=== PATIENT | male | born 1935 | race Caucasian/White ===

== ENCOUNTER → 2016-09-14 | Outpatient (CLI) | payer OTHER ==
[~2016-09-14] MED LIST: ACET-1256 PO; ADVIN25050 INH; ALL300 PO; CARV12.52 PO; CLB200 PO; CLC6 PO; DIGO0.122 PO; FURO40TA3 PO; ISOS60TA25 PO; METO50TA7 PO; PRED10TA PO; TIOTCAP INH; WARF5TAB90 PO
--- NOTE | 2016-09-14 12:23 | DIAGNOSTIC IMAGING REPORT ---
TWO VIEW CHEST CLINICAL HISTORY: Cough and dyspnea. FINDINGS: PA and lateral chest radiographs are compared to study dated 12/18/2013 and correlated with chest CT dated 04/13/2010. The heart is enlarged and there is atherosclerotic calcification of the thoracic aorta. The pulmonary vasculature is noncongested. Emphysema and chronic interstitial thickening are similar to previous. There is a right pleural effusion with associated right basilar consolidation. Atelectasis is noted at the left lung base. A calcified granuloma is again seen in the left upper lobe. There is no pneumothorax. The skeletal structures are osteopenic. Degenerative change is noted throughout the thoracic spine. IMPRESSION: 1. Cardiomegaly and emphysema. There is no radiographic evidence of congestive failure. 2. There is a small right pleural effusion with right basilar consolidation. Correlate clinically for evidence of pneumonia. Radiographic follow-up to resolution is recommended Electronically signed by: Aiden Doty M.D. 09/14/2016 12:21 PM Dictated Date/Time: 09/14/2016 12:20 PM
[2016-09-14 13:07] LABS: BASO % 0.2 %; BASO ABS # 0.01 K/uL (0-0.2); COMPLETE YES; HEMATOCRIT 35.7 % (42-52); IG% 0.5 %; LYMPH % 12.5 %; LYMPH ABS # 0.82 K/uL (1.2-3.4); MEAN CELL VOLUME 97.8 fL (80-100); MEAN CORPUSCULAR HEMOGLOBIN 31.5 pg (25-34); MEAN CORPUSCULAR HGB CONC 32.2 g/dl (32-36); MEAN PLATELET VOLUME 9.9 fL (7.4-10.4); MONO % 6.7 %; NEUT % 78.1 %; PLATELET COUNT 170 K/uL (130-400); RED BLOOD COUNT 3.65 M/uL (4.7-6.1); WHITE BLOOD COUNT 6.56 K/uL (4.8-10.8)
[2016-09-14 14:46] LABS: INFLUENZA A PCR Neg for Influ A (NEG); INFLUENZA B PCR Neg for Influ B (NEG)
== END | disposition home or self-care (01) ==
LOC: C.RAD 11:37
PROVIDERS: ATTEND Internal Medicine
DX: R05 Cough (principal); J43.9 Emphysema, unspecified; I51.7 Cardiomegaly; J90 Pleural effusion, not elsewhere classified

== ENCOUNTER → 2016-09-16 | Outpatient (CLI) | payer OTHER ==
[2016-09-16 17:50] LABS: BLOOD UREA NITROGEN 20 mg/dl (7-18); BUN/CREATININE RATIO 18.3 (10-20); CALCIUM 8.8 mg/dl (8.5-10.1); CARBON DIOXIDE 27 mmol/L (21-32); CHLORIDE 103 mmol/L (98-107); GLUCOSE 103 mg/dl (70-99); POTASSIUM 4.1 mmol/L (3.5-5.1); SODIUM 140 mmol/L (136-145)
[2016-09-16 17:55] LABS: BASO % 0.3 %; BASO ABS # 0.02 K/uL (0-0.2); COMPLETE YES; EOS % 1.7 %; HEMATOCRIT 37.9 % (42-52); IG% 0.3 %; LYMPH % 14.5 %; LYMPH ABS # 1.03 K/uL (1.2-3.4); MEAN CELL VOLUME 98.2 fL (80-100); MEAN CORPUSCULAR HEMOGLOBIN 31.6 pg (25-34); MEAN CORPUSCULAR HGB CONC 32.2 g/dl (32-36); MONO % 4.5 %; NEUT % 78.7 %; PLATELET COUNT 194 K/uL (130-400); RED BLOOD COUNT 3.86 M/uL (4.7-6.1); WHITE BLOOD COUNT 7.08 K/uL (4.8-10.8)
[2016-09-17 06:27] LABS: ESTIMATED AVERAGE GLUCOSE 131 mg/dl; HA1C FLAG Normal (Normal)
== END | disposition home or self-care (01) ==
LOC: C.LABBFT 14:48
PROVIDERS: ATTEND Internal Medicine
DX: R73.09 Other abnormal glucose (principal); N18.9 Chronic kidney disease, unspecified

== ENCOUNTER → 2016-10-04 | Outpatient (CLI) | payer OTHER ==
--- NOTE | 2016-10-04 09:40 | DIAGNOSTIC IMAGING REPORT ---
CHEST 2 VIEWS ROUTINE CLINICAL HISTORY: J18.9 [id number] dyspnea COMPARISON STUDY: 09/14/2016 FINDINGS: Unchanging increase in density and a consolidative change right base. Trace pleural fluid left base. Mild stable cardiomegaly. Lungs otherwise appear clear. Several small calcified granulomas. IMPRESSION: Unchanging consolidative change and/or effusion right base. Slight blunting left lateral costophrenic angle. Mild stable cardiomegaly. Electronically signed by: Moe Winkler M.D. 10/04/2016 9:38 AM Dictated Date/Time: 10/04/2016 9:37 AM
== END | disposition home or self-care (01) ==
LOC: C.RAD1850 09:18
PROVIDERS: ATTEND Internal Medicine
DX: J18.9 Pneumonia, unspecified organism (principal); I51.7 Cardiomegaly

== ENCOUNTER 2016-10-16 10:27 | Inpatient (IN) | payer OTHER ==
[~2016-10-16] VITALS: Ht 177.8 cm; Wt 112.4 kg
[2016-10-16] VITALS (8 sets, daily range): BP systolic 125–150; BP diastolic 69–103; PULSE 83–103; TEMP 36.7–36.9; O2SAT 90–95; Ht 177.8 cm; Wt 112.4 kg
[~2016-10-16 10:27] MED LIST changes: -ACET-1256 PO
[2016-10-16] MEDS ORDERED: ASPIRIN 81 MG CHEW PO STA (11:27)
[2016-10-16] MEDS ORDERED: METHYLPREDNISOLONE 125 MG VIAL IV STA (11:34)
[2016-10-16] MEDS ORDERED: ALBUT/IPRATROP 3MG/0.5MG NEB 3 ML VIAL INH STA (11:34)
--- NOTE | 2016-10-16 11:36 | EMERGENCY ROOM VISIT NOTE ---
History Report prepared by Cristiane: Imtiaz Hopkins Under the Supervision of: Dr. Radha Zhang M.D. First contact with patient: 10:59 Chief Complaint: SHORTNESS OF BREATH Stated Complaint: SOB, FAILED OUTPT TEST FOR PNEUMONIA Nursing Triage Summary: reports pneumonia on 09/17 round of levaquin , had # 2 round of levaquin completed this and cont to not feel well, increased sob X 2 days , denies mucus production, denies cp History of Present Illness The patient is an 81 year old male who presents to the Emergency Room with complaints of persistent shortness of breath for the past month. The shortness of breath is worse with exertion and improves when he is at rest. The patient props himself up at night with one pillow. He does not have any exertional chest pain. The patient was diagnosed with right lower lobe pneumonia by chest X -ray one month ago with Dr. Smith (PCP). The patient was started on Levaquin. He had a repeat X-ray that showed persistent pneumonia in the lower lobe. The patient had a second round of Levaquin last week. The patient has not been on steroids or albuterol for his shortness of breath. The patient denies fevers, chills, cough, chest pain, or abdominal pain. He follows up with Dr. Diane ( Cardiology) for a history of CHF and atrial fibrillation. He is on Coumadin. His last INR was high and his dose was adjusted accordingly. He is on Lasix and has not noticed significant weight gain. The patient also has a history of COPD. He is a former smoker. He denies any history of blood clots or diabetes. He denies any blood in his stools. Source of History: patient Onset: one month ago Position: other (respiratory) Quality: other (short of breath) Timing: other (persistent) Modifying Factors (Worsening): exertion Modifying Factors (Relieving): rest Associated Symptoms: No abdominal pain, No chest pain, No chills, No cough, No fevers Review of Systems See HPI for pertinent positives & negatives. A total of 10 systems reviewed and were otherwise negative. Past Medical & Surgical Medical Problems: (1) A-fib (2) Carcinomatosis (3) CHF (congestive heart failure) (4) COPD (chronic obstructive pulmonary disease) (5) Pneumonia Family History Patient reports no known family medical history. Social History Smoking Status: Never Smoker Marital Status: Housing Status: lives with family Occupation Status: retired Current/Historical Medications Scheduled Allopurinol (Zyloprim *), 300 MG PO DAILY Carvedilol (Coreg), 12.5 MG PO BID Celecoxib (Celebrex *), 200 MG PO Q2D Colchicine (Colchicine *), 0.6 MG PO QAM Digoxin (Lanoxin), 0.125 MG PO DAILY Fluticasone Prop/Salmeterol (Advair Diskus 250/50 Mcg *), 1 PUFF INH BID Furosemide (Lasix), 40 MG PO UD Isosorbide Mononitrate Ext Rel (Imdur Ext Rel), 60 MG PO QAM Metoprolol Succ (Toprol Xl) (Toprol-Xl), 50 MG PO DAILY Tiotropium [place] (Spiriva Handihaler), 1 CAP INH DAILY Warfarin Sodium (Coumadin), 5 MG PO DAILY@16 Scheduled PRN Acetaminophen (Tylenol), 2 TAB PO Q6 PRN for Pain Allergies Coded Allergies: No Known Allergies (Verified , 10/16/16) Physical Exam Vital Signs Date Time Temp Pulse Resp B/P Pulse Ox O2 Delivery O2 Flow Rate FiO2 10/16/16 14:01 138/98 10/16/16 13:57 82 20 88 10/16/16 13:38 143/91 10/16/16 13:01 130/84 10/16/16 12:57 78 18 93 10/16/16 12:31 128/82 10/16/16 12:27 76 24 95 10/16/16 12:26 76 20 132/77 95 Nasal Cannula 2.0 10/16/16 12:21 132/77 10/16/16 12:00 72 16 139/94 92 10/16/16 11:57 75 32 92 10/16/16 11:33 78 10/16/16 11:27 77 21 93 10/16/16 10:58 95 Room Air 10/16/16 10:57 68 33 90 10/16/16 10:56 78 10/16/16 10:45 95 Room Air 10/16/16 10:42 139/94 10/16/16 10:32 36.6 75 20 124/74 98 Room Air Physical Exam Vital signs reviewed. General: Elderly, obese, chronically ill-appearing male, in no significant distress. On [place] oxygen. HEENT: No scleral icterus, PERRLA, neck supple. Atraumatic. Cardiovascular:Irregular rhythm, rate controlled, no extra sounds. Pulmonary: Diminished breath sounds at the right base, normal work of breathing. Abdomen: Soft, nontender, nondistended, positive bowel sounds. Musculoskeletal: Atraumatic, no peripheral edema. Neurologic: Patient awake alert and oriented x 3, full strength in all 4 extremities. Cranial nerves 2 through 12 grossly intact. Skin: Warm, dry, no rash Medical Decision & Procedures ER Provider Diagnostic Interpretation: X-ray results as stated below per my interpretation and radiologist interpretation. Other radiology results as stated below per my review and radiologist interpretation: CHEST ONE VIEW PORTABLE CLINICAL HISTORY: SOB dyspnea COMPARISON STUDY: 10/04/2016 FINDINGS: moderate cardiomegaly. Improved aeration left base compared to the prior study. Small developing parenchymal infiltrate right base. Small right effusion. Stable findings of pulmonary vascular congestion IMPRESSION: 1. Small developing parenchymal infiltrate medial aspect right base. 2. Moderate cardia megaly. 3. Pulmonary vascular congestion stable from the prior study. Electronically signed by: Moe Winkler M.D. 10/16/2016 11:55 AM Dictated Date/Time: 10/16/2016 11:[address] WITHOUT CONTRAST CT DOSE: 833.07 mGy.cm HISTORY: Dyspnea Right basilar consolidation persistent x1 mo and FERRARI TECHNIQUE: Multiaxial CT images of the chest were performed without contrast. COMPARISON: None. FINDINGS: Study confirms the presence of a right pleural effusion. There are findings of right lower lobe atelectatic change. Possibility of a right infrahilar mass measuring 5 x 4 cm with postobstructive change is considered. Diaphragmatic region shows a distinct nodular appearance. There is nodularity of the pleural surface laterally. Left lung base shows a subtle micronodularity. The osseous structures appear generally intact. Mild degenerative change is present. Limited evaluation the upper abdomen confirms presence of what appears to be carcinomatosis. Hepatic cirrhosis is also noted, with a trace amount of ascites.. IMPRESSION: 1. Diffuse nodularity of the right lung base, right diaphragm, and upper quadrant of the abdomen 2. Probable right infrahilar mass with postobstructive right lower lobe consolidative change. 3. Large right effusion. 4. Probable carcinomatosis of the upper abdomen best seen in the right upper quadrant and perihepatic region although to a lesser extent seen anteriorly and centrally within the upper abdomen. 5. Hepatic cirrhosis. 6. A neoplastic process is the diagnosis of exclusion Electronically signed by: Moe Winkler M.D. 10/16/2016 1:45 PM Dictated Date/Time: 10/16/2016 1:38 PM Laboratory Results 10/16/16 11:30 Red Blood Count 3.83, Mean Corpuscular Volume 95.3, Mean Corpuscular Hemoglobin 31.1, Mean Corpuscular Hemoglobin Concent 32.6, Mean Platelet Volume 9.3, Neutrophils (%) (Auto) 79.2, Lymphocytes (%) (Auto) 14.9, Monocytes (%) (Auto) 3.8, Eosinophils (%) (Auto) 1.4, Basophils (%) (Auto) 0.2, Neutrophils # (Auto) 4.96, Lymphocytes # (Auto) 0.93, Monocytes # (Auto) 0.24, Eosinophils # (Auto) 0.09, Basophils # (Auto) 0.01 10/16/16 11:30 Test 10/16/16 11:30 10/16/16 11:44 White Blood Count 6.26 K/uL (4.8-10.8) Red Blood Count 3.83 M/uL (4.7-6.1) Hemoglobin 11.9 g/dL (14.0-18.0) Hematocrit 36.5 % (42-52) Mean Corpuscular Volume 95.3 fL (80-100) Mean Corpuscular Hemoglobin 31.1 pg (25-34) Mean Corpuscular Hemoglobin Concent 32.6 g/dl (32-36) Platelet Count 162 K/uL (130-400) Mean Platelet Volume 9.3 fL (7.4-10.4) Neutrophils (%) (Auto) 79.2 % Lymphocytes (%) (Auto) 14.9 % Monocytes (%) (Auto) 3.8 % Eosinophils (%) (Auto) 1.4 % Basophils (%) (Auto) 0.2 % Neutrophils # (Auto) 4.96 K/uL (1.4-6.5) Lymphocytes # (Auto) 0.93 K/uL (1.2-3.4) Monocytes # (Auto) 0.24 K/uL (0.11-0.59) Eosinophils # (Auto) 0.09 K/uL (0-0.5) Basophils # (Auto) 0.01 K/uL (0-0.2) RDW Standard Deviation 51.4 fL (36.4-46.3) RDW Coefficient of Variation 14.8 % (11.5-14.5) Immature Granulocyte % (Auto) 0.5 % Immature Granulocyte # (Auto) 0.03 K/uL (0.00-0.02) Prothrombin Time 43.0 SECONDS (9.0-12.0) Prothromb Time International Ratio 3.8 (0.9-1.1) Activated Partial Thromboplast Time 47.4 SECONDS (21.0-31.0) Partial Thromboplastin Ratio 1.8 Anion Gap 9.0 mmol/L (3-11) BUN/Creatinine Ratio 20.9 (10-20) Calcium Level 9.1 mg/dl (8.5-10.1) Magnesium Level 2.2 mg/dl (1.8-2.4) Total Bilirubin 0.4 mg/dl (0.2-1) Direct Bilirubin 0.1 mg/dl (0-0.2) Aspartate Amino Transf (AST/SGOT) 22 U/L (15-37) Alanine Aminotransferase (ALT/SGPT) 12 U/L (12-78) Alkaline Phosphatase 114 U/L (45-117) Total Creatine Kinase 74 U/L (39-308) Creatine Kinase MB 1.4 ng/ml (0.5-3.6) Creatine Kinase MB Ratio 1.9 (0-3.0) Total Protein 6.7 gm/dl (6.4-8.2) Albumin 3.0 gm/dl (3.4-5.0) Bedside Troponin I 0.000 ng/ml (0-0.045) Laboratory results per my review. Medications Administered Medications (Trade) Dose Ordered Sig/Luciana Route Start Time Stop Time Status Last Admin Dose Admin Aspirin (Aspirin Chew) 324 mg NOW STAT PO 10/16/16 11:27 10/16/16 11:29 DC 10/16/16 11:58 324 MG Albuterol/ Ipratropium (Duoneb) 3 ml NOW STAT INH 10/16/16 11:34 10/16/16 11:36 DC 10/16/16 11:59 3 ML Methylprednisolone Sodium Succinate (Solu-Medrol IV) 125 mg NOW STAT IV 10/16/16 11:34 10/16/16 11:36 DC 10/16/16 11:59 125 MG ECG Indication: SOB/dyspnea Rate (beats per minute): 83 Rhythm: atrial fibrillation Findings: RBBB, other (abberantly conducted complexes, repolarization abnormality) ED Course 1110: Patient was evaluated by the [facility]. 1127: Aspirin 324 mg PO. 1132: Past medical records reviewed. The patient was evaluated in room C4. A complete history and physical examination was performed. 1134: Solu-Medrol 125 mg IV, DuoNeb 3 ml INH. 1410: Discussed the case with Dr. [facility]. The patient will be evaluated. Medical Decision Differential diagnosis: Etiologies such as infections, reactive airway disease, pneumonia, pneumothorax , COPD, CHF, cardiac ischemia, pulmonary embolism, musculoskeletal, gastrointestinal, as well as others were entertained. This patient was evaluated and appeared to be in no significant distress. Physical examination reveals a chronically ill-appearing male. Chest x-ray was performed and reveals findings as above. Patient was given aspirin orally. EKG reveals no evidence of acute ischemia. Laboratory work is significant for an INR of 3.8. CT scan of the chest was performed and is significant for a pleural effusion and malignancy. This would be a new diagnosis. I did discuss the situation with the patient, his family was not in the room at that time. He will be evaluated by the hospitalist service, Dr. Serra for further management. Patient is aware of the plan and agrees. Consults Time Called: 1400 Consulting Physician: Dr. Thomas [facility]. Returned Call: [phone]: Discussed the case with Dr. Thomas [facility]. The patient will be evaluated. Impression Primary Impression: Pleural effusion, right Additional Impression: Malignancy Scribe Attestation The scribe's documentation has been prepared under my direction and personally reviewed by me in its entirety. I confirm that the note above accurately reflects all work, treatment, procedures, and medical decision making performed by me. Departure Information Dispostion Being Evaluated By Hospitalist Referrals Raheem Smith M.D. (PCP) Patient Instructions My [facility] Health Problem Qualifiers
[2016-10-16] MEDS ORDERED: ACET-1256 PO (11:43)
[2016-10-16 11:53] LABS: BASO % 0.2 %; BASO ABS # 0.01 K/uL (0-0.2); COMPLETE YES; EOS % 1.4 %; HEMATOCRIT 36.5 % (42-52); IG% 0.5 %; LYMPH % 14.9 %; LYMPH ABS # 0.93 K/uL (1.2-3.4); MEAN CELL VOLUME 95.3 fL (80-100); MEAN CORPUSCULAR HEMOGLOBIN 31.1 pg (25-34); MEAN CORPUSCULAR HGB CONC 32.6 g/dl (32-36); MEAN PLATELET VOLUME 9.3 fL (7.4-10.4); MONO % 3.8 %; NEUT % 79.2 %; PLATELET COUNT 162 K/uL (130-400); RED BLOOD COUNT 3.83 M/uL (4.7-6.1); WHITE BLOOD COUNT 6.26 K/uL (4.8-10.8)
--- NOTE | 2016-10-16 11:56 | DIAGNOSTIC IMAGING REPORT ---
CHEST ONE VIEW PORTABLE CLINICAL HISTORY: SOB dyspnea COMPARISON STUDY: 10/04/2016 FINDINGS: moderate cardiomegaly. Improved aeration left base compared to the prior study. Small developing parenchymal infiltrate right base. Small right effusion. Stable findings of pulmonary vascular congestion IMPRESSION: 1. Small developing parenchymal infiltrate medial aspect right base. 2. Moderate cardia megaly. 3. Pulmonary vascular congestion stable from the prior study. Electronically signed by: Moe Winkler M.D. 10/16/2016 11:55 AM Dictated Date/Time: 10/16/2016 11:53 AM
[2016-10-16 12:10] LABS: BUN/CREATININE RATIO 20.9 (10-20); CALCIUM 9.1 mg/dl (8.5-10.1); CREATININE 0.88 mg/dl (0.60-1.40); MAGNESIUM 2.2 mg/dl (1.8-2.4)
[2016-10-16 12:15] LABS: CKMB/CK RATIO 1.9 (0-3.0)
[2016-10-16 12:19] LABS: PARTIAL THROMBOPLASTIN RATIO 1.8
[2016-10-16 12:24] LABS: INR 3.8 (0.9-1.1)
--- NOTE | 2016-10-16 13:46 | DIAGNOSTIC IMAGING REPORT ---
CHEST CT WITHOUT CONTRAST CT DOSE: 833.07 mGy.cm HISTORY: Dyspnea Right basilar consolidation persistent x1 mo and FERRARI TECHNIQUE: Multiaxial CT images of the chest were performed without contrast. COMPARISON: None. FINDINGS: Study confirms the presence of a right pleural effusion. There are findings of right lower lobe atelectatic change. Possibility of a right infrahilar mass measuring 5 x 4 cm with postobstructive change is considered. Diaphragmatic region shows a distinct nodular appearance. There is nodularity of the pleural surface laterally. Left lung base shows a subtle micronodularity. The osseous structures appear generally intact. Mild degenerative change is present. Limited evaluation the upper abdomen confirms presence of what appears to be carcinomatosis. Hepatic cirrhosis is also noted, with a trace amount of ascites.. IMPRESSION: 1. Diffuse nodularity of the right lung base, right diaphragm, and upper quadrant of the abdomen 2. Probable right infrahilar mass with postobstructive right lower lobe consolidative change. 3. Large right effusion. 4. Probable carcinomatosis of the upper abdomen best seen in the right upper quadrant and perihepatic region although to a lesser extent seen anteriorly and centrally within the upper abdomen. 5. Hepatic cirrhosis. 6. A neoplastic process is the diagnosis of exclusion Electronically signed by: Moe Winkelr M.D. 10/16/2016 1:45 PM Dictated Date/Time: 10/16/2016 1:38 PM
[2016-10-16] MEDS ORDERED: VANCOMYCIN INJ 1,000 MG in SODIUM CHLORIDE 0.9% 250ML 250 ML IV STA (14:24)
[2016-10-16] MEDS ORDERED: ACETAMINOPHEN 325 MG TAB PO PRN (14:30)
[2016-10-16] MEDS ORDERED: ONDANSETRON INJ 2 MG/ML 2 ML VIAL IV PRN (14:30)
[2016-10-16] MEDS ORDERED: ZOLPIDEM TARTRATE 5 MG TAB PO PRN (14:30)
[2016-10-16] MEDS ORDERED: LEVALBUTEROL/IPRATROPIUM NEB INH SCH (15:00)
--- NOTE | 2016-10-16 15:10 | History and Physical ---
History & Physical Date & Time of Service: Oct 16, 2016 at 14:57 Chief Complaint: Sob, Failed Outpt Test For Pneumonia Primary Care Physician: Raheem Smith M.D. History of Present Illness Source: patient The patient is an 81-year-old male who presents to the emergency department with persistent shortness of breath and dyspnea on exertion over the past month. The patient reports he props himself up with one pillow at nighttime. He was diagnosed with a right lower lobe pneumonia by chest x-ray 1 month ago and started on Levaquin, with repeat chest x-ray last week showing persistent pneumonia and placed a second round of Levaquin. He follows with Dr. Diane from cardiology for atrial fibrillation and CHF and is chronically on warfarin. He continues to take his Lasix as directed and his weight has been stable. He has not had any recent travel or sick exposures that he is aware of. He is a former smoker. Past Medical/Surgical History Medical Problems: (1) A-fib Status: Chronic (2) CHF (congestive heart failure) Status: Chronic (3) COPD (chronic obstructive pulmonary disease) Status: Chronic Family History Patient reports no known family medical history. Social History Smoking Status: Never Smoker Smokeless Tobacco Use: No Alcohol Use: none Drug Use: none Marital Status: Housing status: lives with family Occupational Status: retired Immunizations History of Influenza Vaccine: N/A History of Tetanus Vaccine?: Yes Tetanus Immunization Date: Jan 05, 2011 History of Pneumococcal: Yes Pneumococcal Date: Jan 06, 2008 History of Hepatitis B Vaccine: No Multi-Drug Resistant Organisms History of MDRO: No Allergies Coded Allergies: No Known Allergies (Verified , 10/16/16) Home Medications Scheduled Allopurinol (Zyloprim *), 300 MG PO DAILY Carvedilol (Coreg), 12.5 MG PO BID Celecoxib (Celebrex *), 200 MG PO Q2D Colchicine (Colchicine *), 0.6 MG PO QAM Digoxin (Lanoxin), 0.125 MG PO DAILY Fluticasone Prop/Salmeterol (Advair Diskus 250/50 Mcg *), 1 PUFF INH BID Furosemide (Lasix), 40 MG PO UD Isosorbide Mononitrate Ext Rel (Imdur Ext Rel), 60 MG PO QAM Metoprolol Succ (Toprol Xl) (Toprol-Xl), 50 MG PO DAILY Tiotropium Oxly (Spiriva Handihaler), 1 CAP INH DAILY Warfarin Sodium (Coumadin), 5 MG PO DAILY@16 Scheduled PRN Acetaminophen (Tylenol), 2 TAB PO Q6 PRN for Pain Review of Systems The patient denies palpitations, vision change, hearing change, sore throat, fevers, chills, sweats, weight change, fatigue, nausea, vomiting, abdominal pain , pelvic pain, blood in urine or stool, dysuria, urinary frequency or urgency, lightheadedness, dizziness, headache, memory loss, rash, abnormal bruising or bleeding, imbalance, focal weakness, numbness or tingling in arms or legs, arthralgias or myalgias, back or neck pain, night sweats, or allergy symptoms. The review of systems is otherwise negative other than for that already noted above, and at least 10 systems have been reviewed. Physical Exam Vital Signs Date Time Temp Pulse Resp B/P Pulse Ox O2 Delivery O2 Flow Rate FiO2 10/16/16 14:01 138/98 10/16/16 13:57 82 20 88 10/16/16 13:38 143/91 10/16/16 13:01 130/84 10/16/16 12:57 78 18 93 10/16/16 12:31 128/82 10/16/16 12:27 76 24 95 10/16/16 12:26 76 20 132/77 95 Nasal Cannula 2.0 10/16/16 12:21 132/77 10/16/16 12:00 72 16 139/94 92 10/16/16 11:57 75 32 92 10/16/16 11:33 78 10/16/16 11:27 77 21 93 10/16/16 10:58 95 Room Air 10/16/16 10:57 68 33 90 10/16/16 10:56 78 10/16/16 10:45 95 Room Air 10/16/16 10:42 139/94 10/16/16 10:32 36.6 75 20 124/74 98 Room Air The patient is awake, alert and oriented 3, looks fatigued, lying in bed and in no acute distress. HEENT--PERRL, EOMI, mucous membranes and oropharynx dry. Neck--supple, no JVD or bruits, thyroid normal, trachea midline, no adenopathy. Heart--normal S1 and S2, no extra beats, no murmurs, rubs or gallops. Lungs--crackles at right base, no respiratory distress, no accessory muscle use. Abdomen--normal bowel sounds and soft, moderately distended and tympanitic, protuberant infraumbilical hernia Extremities--no cyanosis, clubbing. There is bilaterally 2+ pitting Edema. There are good distal pulses b/l. Dermatologic--chronic venous stasis changes. Neurologic--cranial nerves II through XII grossly intact, motor and sensory examination normal. Rheumatologic--normal range of motion, nontender, muscles and joints for age. Psychiatric--normal affect. Diagnostics Laboratory Results Results Past 24 Hours Test 10/16/16 11:30 10/16/16 11:44 Range/Units White Blood Count 6.26 4.8-10.8 K/uL Red Blood Count 3.83 4.7-6.1 M/uL Hemoglobin 11.9 14.0-18.0 g/dL Hematocrit 36.5 42-52 % Mean Corpuscular Volume 95.3 80-100 fL Mean Corpuscular Hemoglobin 31.1 25-34 pg Mean Corpuscular Hemoglobin Concent 32.6 32-36 g/dl Platelet Count 162 130-400 K/uL Mean Platelet Volume 9.3 7.4-10.4 fL Neutrophils (%) (Auto) 79.2 % Lymphocytes (%) (Auto) 14.9 % Monocytes (%) (Auto) 3.8 % Eosinophils (%) (Auto) 1.4 % Basophils (%) (Auto) 0.2 % Neutrophils # (Auto) 4.96 1.4-6.5 K/uL Lymphocytes # (Auto) 0.93 1.2-3.4 K/uL Monocytes # (Auto) 0.24 0.11-0.59 K/uL Eosinophils # (Auto) 0.09 0-0.5 K/uL Basophils # (Auto) 0.01 0-0.2 K/uL RDW Standard Deviation 51.4 36.4-46.3 fL RDW Coefficient of Variation 14.8 11.5-14.5 % Immature Granulocyte % (Auto) 0.5 % Immature Granulocyte # (Auto) 0.03 0.00-0.02 K/uL Prothrombin Time 43.0 9.0-12.0 SECONDS Prothromb Time International Ratio 3.8 0.9-1.1 Activated Partial Thromboplast Time 47.4 21.0-31.0 SECONDS Partial Thromboplastin Ratio 1.8 Sodium Level 140 136-145 mmol/L Potassium Level 4.0 3.5-5.1 mmol/L Chloride Level 102 98-107 mmol/L Carbon Dioxide Level 29 21-32 mmol/L Anion Gap 9.0 3-11 mmol/L Blood Urea Nitrogen 18 7-18 mg/dl Creatinine 0.88 0.60-1.40 mg/dl Est Creatinine Clear Calc Drug Dose 81.4 ml/min Estimated GFR () 93.4 Estimated GFR (Non- 80.6 BUN/Creatinine Ratio 20.9 10-20 Random Glucose 110 70-99 mg/dl Calcium Level 9.1 8.5-10.1 mg/dl Magnesium Level 2.2 1.8-2.4 mg/dl Total Bilirubin 0.4 0.2-1 mg/dl Direct Bilirubin 0.1 0-0.2 mg/dl Aspartate Amino Transf (AST/SGOT) 22 15-37 U/L Alanine Aminotransferase (ALT/SGPT) 12 12-78 U/L Alkaline Phosphatase 114 45-117 U/L Total Creatine Kinase 74 39-308 U/L Creatine Kinase MB 1.4 0.5-3.6 ng/ml Creatine Kinase MB Ratio 1.9 0-3.0 Total Protein 6.7 6.4-8.2 gm/dl Albumin 3.0 3.4-5.0 gm/dl Bedside Troponin I 0.000 0-0.045 ng/ml Diagnostic Radiology Patient Name: LOLY SELF Unit Number: [id number] Dictated: 10/16/161152 Transcribed: 10/16/16 115 MS Printed Date/Time: [~ rep prt dt]/[~ rep prt tm] [~ rep ct labl] - [~ rep ct ivnm] [facility] [address] Dictated: 10/16/161152 Transcribed: 10/16/16 1153 MS Printed Date/Time: [~ rep prt dt]/[~ rep prt tm] [~ rep ct labl] - [~ rep ct ivnm] CHEST ONE VIEW PORTABLE CLINICAL HISTORY: SOB dyspnea COMPARISON STUDY: 10/04/2016 FINDINGS: moderate cardiomegaly. Improved aeration left base compared to the prior study. Small developing parenchymal infiltrate right base. Small right effusion. Stable findings of pulmonary vascular congestion IMPRESSION: 1. Small developing parenchymal infiltrate medial aspect right base. 2. Moderate cardia megaly. 3. Pulmonary vascular congestion stable from the prior study. Electronically signed by: Moe Winkler M.D. 10/16/2016 11:55 AM Dictated Date/Time: 10/16/2016 11:53 AM The status of this report is Signed. Draft = Not yet reviewed or approved by Radiologist. Signed = Reviewed and approved by Radiologist. <AttendingPhy></AttendingPhy> <FamilyPhy>Raheem Smith M.D.</FamilyPhy > <PrimaryPhy>Raheem Smith M.D.</PrimaryPhy> <UnitNumber>[id number]</ UnitNumber> <VisitNumber>[id number]</VisitNumber> <PatientName>LOLY SELF</ PatientName> <DateOfBirth>1935</DateOfBirth> <Location>[facility]</Location> < ServiceDate>10/16/16</ServiceDate> <MNE>ESINDI</MNE> <OrderingPhy>Radha Zhang M.D.</OrderingPhy> <OrderingPhyMNE>f rep ord dr shahid</OrderingPhyMNE> < DictatingPhyMNE>f rep dict dr shahid</DictatingPhyMNE> <CCListMNE>f rep ct mne</ CCListMNE> <AdmittingPhyMNE>f pt admit dr shahid</AdmittingPhyMNE> <AttendingPhyMNE >f pt attend dr shahid</AttendingPhyMNE> <ConsultingPhyMNE>f pt consult dr shahid</ConsultingPhyMNE> <FamilyPhyMNE>f pt fam dr shahid</FamilyPhyMNE> <OtherPhyMNE>f pt other dr shahid</OtherPhyMNE> < PrimaryPhyMNE>f pt prim care dr shahid</PrimaryPhyMNE> <ReferringPhyMNE>f pt referring dr shahid</ReferringPhyMNE> CC: Radha Zhang M.D. Hester, Christopher E., M.D. Endcc: [~ rep ct add3]] CHEST CT WITHOUT CONTRAST CT DOSE: 833.07 mGy.cm HISTORY: Dyspnea Right basilar consolidation persistent x1 mo and FERRARI TECHNIQUE: Multiaxial CT images of the chest were performed without contrast. COMPARISON: None. FINDINGS: Study confirms the presence of a right pleural effusion. There are findings of right lower lobe atelectatic change. Possibility of a right infrahilar mass measuring 5 x 4 cm with postobstructive change is considered. Diaphragmatic region shows a distinct nodular appearance. There is nodularity of the pleural surface laterally. Left lung base shows a subtle micronodularity. The osseous structures appear generally intact. Mild degenerative change is present. Limited evaluation the upper abdomen confirms presence of what appears to be carcinomatosis. Hepatic cirrhosis is also noted, with a trace amount of ascites.. IMPRESSION: 1. Diffuse nodularity of the right lung base, right diaphragm, and upper quadrant of the abdomen 2. Probable right infrahilar mass with postobstructive right lower lobe consolidative change. 3. Large right effusion. 4. Probable carcinomatosis of the upper abdomen best seen in the right upper quadrant and perihepatic region although to a lesser extent seen anteriorly and centrally within the upper abdomen. 5. Hepatic cirrhosis. 6. A neoplastic process is the diagnosis of exclusion Electronically signed by: Moe Winkler M.D. 10/16/2016 1:45 PM EKG EKG shows atrial fibrillation at 83 bpm, right bundle branch block, PVCs, no acute ST-T changes. Impression Assessment and Plan Atrial fibrillation with controlled rate, right bundle branch block, PVCs, on chronic warfarin with mildly supratherapeutic INR of 3.8. The patient will be admitted to the telemetry unit for serial cardiac enzymes, cardiac rhythm monitoring. Will hold warfarin until other workup completed, and may need heparin IV in the interim. For now, will hold carvedilol 12.5 mg, by mouth digoxin, by mouth Imdur extended release, and by mouth metoprolol succinate. Place patient on Lopressor 5 mg IV every 4 hours with hold parameters. Continue at relative nothing by mouth status until other workup is completed. Postobstructive pneumonia/right infrahilar mass/COPD--hold Advair Diskus 250/50 one inhalation twice a day, and Spiriva [address] patient on vancomycin IV per renal dosing, Zosyn 3.375 mg IV every 8 hours, levofloxacin 500 mg IV every 24 hours, Solu-Medrol 40 mg IV every 8 hours, Xopenex with Atrovent nebulizer to use every 6 hours while awake and every 2 hours when necessary. 7 x 5 cm left lower quadrant mass suggesting a possible colonic neoplasm/ Abdominal carcinomatosis--patient will be kept nothing by mouth. Combined with the lung imaging findings of right hilar mass and right lower lobe metastasis, we'll consult Dr. Dacosta from oncology for further management. 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 Further assessment will be based upon neoplasm workup as above. Next Liver cirrhosis--noted to be underlying metastatic liver disease. Fat-containing ventral and left inguinal hernias--stable per patient. Level of Care Telemetry Advanced Directives Existing Advance Directive: No Existing Living Will: No Existing Power of Steel Rigger: No Resuscitation Status FULL RESUSCITATION VTE Prophylaxis VTE Risk Assessment Done? Y/N: Yes Risk Level: Moderate Given or contraindicated: Warfarin (Coumadin)
[2016-10-16] MEDS ORDERED: PIPERACILL/TAZOBAC CONSULT ACTIVE PRN (15:15)
[2016-10-16] MEDS ORDERED: VANCOMYCIN CONSULT ACTIVE PRN (15:15)
--- NOTE | 2016-10-16 15:15 | DIAGNOSTIC IMAGING REPORT ---
CHEST CT WITH CONTRAST CT DOSE: 1794.86 mGy.cm HISTORY: Abnormal chest CT abnormal ct chest without contrast TECHNIQUE: Multiaxial CT images of the chest were performed following the intravenous administration of contrast. COMPARISON: Earlier study same date without contrast FINDINGS: Study is similar. Right pleural effusion is noted. Right lower lobe atelectatic change is again present. Possibility of a right infrahilar masslike process is again noted. Current dimensions are approximately 4 x 4.5 cm. Nodularity of the right and to a lesser extent left base as well as the potential diaphragmatic nodularity are again noted. Omental carcinomatosis of the right upper quadrant as well as anterior abdomen are again present. Findings of hepatic cirrhosis are noted. Degenerative changes of the thoracic spine are present. Thoracic aorta shows moderate atelectatic change. IMPRESSION: 1. Enhancement improves definition of what appears to be a right infrahilar mass. . 2. Diffuse nodularity right base, diaphragm, and right upper quadrant of the abdomen suggesting metastatic change, and associated carcinomatosis. 3. Unchanging right pleural effusion with left basilar nodularity. 4. Right infrahilar mass with metastatic change to the lower chest regions bilaterally, pleural surfaces, and upper abdomen is considered 5. Hepatic cirrhosis Electronically signed by: Moe Winkler M.D. 10/16/2016 3:14 PM Dictated Date/Time: 10/16/2016 3:08 PM
--- NOTE | 2016-10-16 15:23 | DIAGNOSTIC IMAGING REPORT ---
ABDOMEN AND PELVIS CT WITH IV CONTRAST CT DOSE: HISTORY: Mass. abnormal chest CT TECHNIQUE: Multiaxial CT images of the abdomen and pelvis were performed following the use of intravenous contrast. COMPARISON STUDY: None. FINDINGS: Right basilar pleural effusion with right lower lobe atelectatic change is again noted. Diffuse nodularity of the right base, right diaphragm, and upper right abdominal region are noted. Additional smaller nodular densities of the anterior mid abdominal region are present. Potential conglomerate masslike density left central abdomen measuring 7 x 5 cm and potentially encasing several loops of bowel. Possibly of a colonic neoplasm is considered. There is a ventral hernia containing fat exclusively. There is a mild amount of abdominal and to lesser extent pelvic ascites. The spleen is slightly prominent. Pancreas is atrophied. Layering sludge within the gallbladder lumen may be present. The kidneys show mild atrophy. There are negative for hydronephrosis. There is a partially thrombosed aneurysm of the midabdominal aorta with maximum dimension of 5 cm. True luminal dimension is 3.5 cm. This extends to a level at the level of the aortic bifurcation and originates inferior to the renal arteries. Liver again shows evidence for cirrhotic change. There are several potential hypodensities raise the possibly of hepatic metastatic change. There are left pelvic nodes measuring up to 2.5 cm. There is a small fat-containing left inguinal hernia. There is no significant or bulky inguinal adenopathy. Bladder is midline. The osseous structures demonstrate degenerative change although a true lytic or blastic process is not appreciated. There is a very tiny bone cyst lateral aspect left femoral head measuring 5 mm. IMPRESSION: 1. 7 x 5 cm conglomerate mass left lower quadrant possibly encompassing components of the sigmoid and/or loops of small bowel. 2. Left pelvic adenopathy with moderate mesenteric jean change and omental carcinomatosis. 3. Possible liver metastatic change with underlying cirrhosis. 4. considerable carcinomatosis of the right upper quadrant, diaphragm, and right lung base. 5. Micronodular left lung base. 6. 5 cm partially thrombosed aneurysm infrarenal aspect abdominal aorta. 7. Nonobstructive bowel pattern. 8. Fat-containing ventral as well as left inguinal hernias. 9. A neoplastic process of the abdomen or chest with diffuse metastatic involvement is considered most likely grade 10. Small amount of abdominal and pelvic ascites. Electronically signed by: Moe Winkler M.D. 10/16/2016 3:22 PM Dictated Date/Time: 10/16/2016 3:14 PM
[2016-10-16] MEDS ORDERED: PIPERACILLIN/TAZOBACTAM 4.5 GM/100ML D5W IV STA (15:38)
[2016-10-16] MEDS ORDERED: VANCOMYCIN INJ 2,700 MG in SODIUM CHLORIDE 0.9% 500ML 500 ML IV ONE (15:45)
--- NOTE | 2016-10-16 15:54 | Pharmacy Progress Note ---
Pharmacy Antibiotic Consult Date of Service: Oct 16, 2016. Pharmacy Dosing Scope Pharmacy is consulted to initiate vancomycin IV dosing therapy, order appropriate labs and adjust drug dose/frequency. Subjective The patient is a 81 year old male admitted on . Objective Height (Feet): 5 Height (Inches): 10.00 Weight (Kilograms): 109.090 Lab Results (24hrs): Laboratory Tests Test 10/16/16 11:30 BUN/Creatinine Ratio 20.9 Blood Urea Nitrogen 18 mg/dl Creatinine 0.88 mg/dl White Blood Count 6.26 K/uL Red Blood Count 3.83 M/uL Hemoglobin 11.9 g/dL Hematocrit 36.5 % Mean Corpuscular Volume 95.3 fL Mean Corpuscular Hemoglobin 31.1 pg Mean Corpuscular Hemoglobin Concent 32.6 g/dl Platelet Count 162 K/uL Mean Platelet Volume 9.3 fL Neutrophils (%) (Auto) 79.2 % Lymphocytes (%) (Auto) 14.9 % Monocytes (%) (Auto) 3.8 % Eosinophils (%) (Auto) 1.4 % Basophils (%) (Auto) 0.2 % Neutrophils # (Auto) 4.96 K/uL Lymphocytes # (Auto) 0.93 K/uL Monocytes # (Auto) 0.24 K/uL Eosinophils # (Auto) 0.09 K/uL Basophils # (Auto) 0.01 K/uL Assessment & Plan Assessment * 81 yo M with PNA, failed outpatient levofloxacin x2 courses. Hospitalist concerned for post-obstructive etiology. Patient's temperature, heart rate, and WBC all wnl, but O2 st at 88%, now on nasal canula. * Nasal MRSA swab pending * Goal vancomycin 15-20 mcg/mL * CrCL ~ 80 mL/min * Vancomycin 25 mg/kg IV x1 then 14 mg/kg IV q12h Plan * Vancomycin 2700 mg IV x1 then 1500 mg IV q12h * Trough prior to 4th overall dose Pharmacy will continue to follow and will adjust dose/frequency as necessary. Thank you
[2016-10-16] MEDS ORDERED: IPRATROPIUM BROMIDE NEB SOLN 0.02% 2.5 ML VIAL INH PRN (17:00)
[2016-10-16] MEDS ORDERED: PIPERACILL/TAZOBAC IV 3.375 GM in DEXTROSE 5% 100ML IV ONE (17:00)
[2016-10-16] MEDS ORDERED: LEVALBUTEROL 1.25MG/0.5ML NEB INH PRN (17:00)
[2016-10-16] MEDS: NSS + 20MEQ KCL 1000ML 1,000 ML IV SCH (17:25)
[2016-10-16] MEDS: LEVOFLOXACIN / D5W 500 MG in PREMIXED IN D5W 100 ML IV SCH (17:26)
[2016-10-16] MEDS: NITROGLYCERIN OINT 2% 1GM PACKET EXT SCH ×2 (18:19→23:19)
[2016-10-16] MEDS: METHYLPREDNISOLONE IV 40 MG in SYRINGE 0 ML IV SCH (18:19)
[2016-10-16] MEDS: LEVALBUTEROL 1.25MG/0.5ML NEB INH SCH (19:06)
[2016-10-16] MEDS: IPRATROPIUM BROMIDE NEB SOLN 0.02% 2.5 ML VIAL INH SCH (19:06)
[2016-10-16] MEDS: METOPROLOL TARTRATE 1 MG/ML VIAL IV. SCH ×2 (19:42→23:19)
[2016-10-16] MEDS: PIPERACILL/TAZOBAC IV 3.375 GM in DEXTROSE 5% 100ML IV SCH (21:24)
[2016-10-16] MEDS ORDERED: PIPERACILL/TAZOBAC IV 3.375 GM in DEXTROSE 5% 100ML 100 ML IV SCH (22:00)
[2016-10-17] VITALS (16 sets, daily range): BP systolic 121–155; BP diastolic 69–96; PULSE 87–112; TEMP 36.3–37; O2SAT 90–100
[2016-10-17] MEDS: IPRATROPIUM BROMIDE NEB SOLN 0.02% 2.5 ML VIAL INH SCH ×4 (01:44→20:02)
[2016-10-17] MEDS: LEVALBUTEROL 1.25MG/0.5ML NEB INH SCH ×4 (01:44→20:02)
[2016-10-17] MEDS: METHYLPREDNISOLONE IV 40 MG in SYRINGE 0 ML IV SCH ×3 (03:01→17:07)
[2016-10-17] MEDS: VANCOMYCIN INJ 1,500 MG in SODIUM CHLORIDE 0.9% 500ML 500 ML IV SCH ×2 (03:02→16:29)
[2016-10-17] MEDS: METOPROLOL TARTRATE 1 MG/ML VIAL IV. SCH ×5 (03:02→20:27)
[2016-10-17] MEDS: PIPERACILL/TAZOBAC IV 3.375 GM in DEXTROSE 5% 100ML IV SCH ×3 (05:40→22:17)
[2016-10-17] MEDS: NITROGLYCERIN OINT 2% 1GM PACKET EXT SCH ×3 (05:40→17:09)
[2016-10-17 07:14] LABS: CREATININE 0.82 mg/dl (0.60-1.40)
--- NOTE | 2016-10-17 10:46 | Oncology Consultation ---
Oncology/Heme Consultation Date of Consultation: Oct 17, 2016. Attending Physician: Randa Maldonado DO Reason for Consultation: Multiple masses on CT, concern for metastatic malignancy History of Present Illness Mr. Cortes is an 81 year old man with a history of CHF, COPD, and Afib on coumadin. He presented to the ER yesterday with acutely worsening shortness of breath. He's been treated for the last month or so for a presumed pneumonia. However, the infiltrate did not improve with antibiotics and he has become increasingly short of breath. He denies pain, hemoptysis, fevers, chills, or purulent sputum. 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 He has never had a colonoscopy. He denies any stool changes, hematochezia, or melena. His activity is somewhat limited, in part due to arthritis, but he spends less than half the day in bed and is independent in his ADLs. Past Medical/Surgical History Medical Problems: (1) Malignancy Status: Acute (2) Pleural effusion, right Status: Acute Family History Patient reports no known family medical history. Social History Smoking Status: Never Smoker Smokeless Tobacco Use: No Alcohol Use: none Drug Use: none Marital Status: Occupation Status: retired Allergies Coded Allergies: No Known Allergies (Verified , 10/16/16) Home Medications Scheduled Allopurinol (Zyloprim *), 300 MG PO DAILY Carvedilol (Coreg), 12.5 MG PO BID Celecoxib (Celebrex *), 200 MG PO Q2D Colchicine (Colchicine *), 0.6 MG PO QAM Digoxin (Lanoxin), 0.125 MG PO DAILY Fluticasone Prop/Salmeterol (Advair Diskus 250/50 Mcg *), 1 PUFF INH BID Furosemide (Lasix), 40 MG PO UD Isosorbide Mononitrate Ext Rel (Imdur Ext Rel), 60 MG PO QAM Metoprolol Succ (Toprol Xl) (Toprol-Xl), 50 MG PO DAILY Tiotropium [place] (Spiriva Handihaler), 1 CAP INH DAILY Warfarin Sodium (Coumadin), 5 MG PO DAILY@16 Scheduled PRN Acetaminophen (Tylenol), 2 TAB PO Q6 PRN for Pain Current Inpatient Medications Current Inpatient Medications Medications (Trade) Dose Ordered Sig/Luciana Route Start Time Stop Time Status Last Admin Dose Admin Potassium Chloride/Sodium Chloride (Nss + 20meq KCl 1000ml) 1,000 ml @ 50 mls/hr Q20H IV 10/16/16 17:00 11/15/16 16:59 10/16/16 17:25 50 MLS/HR Acetaminophen (Tylenol Tab) 650 mg Q4H PRN PO 10/16/16 14:30 11/15/16 14:29 Zolpidem Tartrate (Ambien Tab) 5 mg HSZ PRN PO 10/16/16 14:30 11/15/16 14:29 Nitroglycerin (Nitroglycerin 2% Oint) 1 inch Q6H EXT 10/16/16 18:00 11/15/16 17:59 10/17/16 05:40 1 INCH Metoprolol Tartrate (Lopressor Iv) 5 mg Q4 IV. 10/16/16 20:00 11/15/16 19:59 10/17/16 07:31 5 MG Ondansetron HCl 4 mg 4 mg Q6H PRN IV 10/16/16 14:30 11/15/16 14:29 Levofloxacin 500 mg/Prmx 100 ml @ 100 mls/hr Q24H IV 10/16/16 17:00 10/23/16 16:59 10/16/16 17:26 100 MLS/HR Methylprednisolone Sodium Succinate/ Syringe (Solu-Medrol IV/ Syringe) 0.64 ml @ 1.5 mls/min Q8H IV 10/16/16 18:00 11/15/16 17:59 10/17/16 10:12 1.5 MLS/MIN Vancomycin HCl (Consult) 1 ea UD PRN N/A 10/16/16 15:15 11/15/16 15:14 Piperacillin Sod/ Tazobactam Sod 1 ea 1 ea UD PRN N/A 10/16/16 15:15 11/15/16 15:14 Piperacillin Sod/ Tazobactam Sod 3.375 gm/Dextrose 115 ml @ 28.75 mls/ hr Q8H IV 10/16/16 22:00 3/25/17 21:59 10/17/16 05:40 28.75 MLS/HR Vancomycin HCl/ Sodium Chloride (Vancomycin Inj/ Nss 500ml) 530 ml @ 200 mls/hr Q12@0400,1600 IV 10/17/16 04:00 10/24/16 03:59 10/17/16 03:02 200 MLS/HR Ipratropium [place] (Atrovent 0.02% 0.5MG/2.5ML Neb) 0.5 mg Q6R INH 10/16/16 21:00 11/15/16 20:59 10/17/16 01:44 0.5 MG Levalbuterol (Xopenex 1.25MG/ 0.5ML Neb) 1.25 mg Q6R INH 10/16/16 21:00 11/15/16 20:59 10/17/16 01:44 1.25 MG Ipratropium [place] (Atrovent 0.02% 0.5MG/2.5ML Neb) 0.5 mg Q2H PRN INH 10/16/16 17:00 11/15/16 16:59 Levalbuterol (Xopenex 1.25MG/ 0.5ML Neb) 1.25 mg Q2H PRN INH 10/16/16 17:00 11/15/16 16:59 Review of Systems Constitutional: + fatigue, No chills, No fever Eyes: No worsening of vision Respiratory: + dyspnea on exertion, + shortness of breath, No hemoptysis, No sputum Cardiovascular: No chest pain, No palpitations Abdomen: No GI bleeding, No nausea, No pain, No vomiting Musculoskeletal: No joint pain, No muscle pain Genitourinary - Male: No dysuria, No hematuria Neurologic: No numbness/tingling, No weakness Hematologic / Lymphatic: No abnormal bleeding/bruising Integumentary: No rash Physical Exam Date Time Temp Pulse Resp B/P Pulse Ox O2 Delivery O2 Flow Rate FiO2 10/17/16 08:00 90 Nasal Cannula 3.0 10/17/16 07:50 36.7 87 20 133/69 93 Nasal Cannula 2.0 10/17/16 07:31 105 134/80 10/17/16 07:03 100 16 92 Nasal Cannula 3.0 10/17/16 04:00 95 Nasal Cannula 4.0 10/17/16 03:02 96 134/80 10/17/16 02:57 36.3 106 22 134/80 96 Nasal Cannula 3.0 10/17/16 01:44 96 16 100 Nasal Cannula 4.0 10/16/16 23:59 95 Nasal Cannula 4.0 10/16/16 23:19 98 135/69 10/16/16 23:04 36.9 98 22 135/69 91 Nasal Cannula 5.0 10/16/16 20:00 91 Nasal Cannula 4.0 10/16/16 19:42 114 150/103 10/16/16 19:32 36.7 103 18 150/103 91 Nasal Cannula 3.0 10/16/16 19:06 95 16 93 Nasal Cannula 3.0 10/16/16 17:45 125/92 10/16/16 16:00 90 Nasal Cannula 3.0 10/16/16 16:00 36.8 83 20 90 Nasal Cannula 3.0 10/16/16 15:45 85 20 149/102 91 Nasal Cannula 2.0 10/16/16 15:15 91 Nasal Cannula 2.0 10/16/16 14:01 138/98 10/16/16 13:57 82 20 88 10/16/16 13:38 143/91 10/16/16 13:01 130/84 10/16/16 12:57 78 18 93 10/16/16 12:31 128/82 10/16/16 12:27 76 24 95 10/16/16 12:26 76 20 132/77 95 Nasal Cannula 2.0 10/16/16 12:21 132/77 10/16/16 12:00 72 16 139/94 92 10/16/16 11:57 75 32 92 10/16/16 11:33 78 10/16/16 11:27 77 21 93 10/16/16 10:58 95 Room Air 10/16/16 10:57 68 33 90 10/16/16 10:56 78 10/16/16 10:45 95 Room Air 10/16/16 10:42 139/94 General Appearance: + mild distress (increased work of breathing), + obese Eyes: EOMI ENT: pharynx normal Respiratory/Chest: + decreased breath sounds (on the right, particularly at the base) Cardiovascular: regular rate, rhythm, no murmur Abdomen/GI: normal bowel sounds, non tender, soft, + pertinent finding ( prominent umbilical hernia) Extremities/Musculoskelatal: no calf tenderness, no pedal edema Neurologic/Psych: no motor/sensory deficits, alert, oriented x 3 Skin: no rash Lymphatic: no adenopathy Laboratory Results Last 24 Hours Test 10/16/16 11:30 10/16/16 11:44 10/17/16 05:49 White Blood Count 6.26 K/uL Red Blood Count 3.83 M/uL Hemoglobin 11.9 g/dL Hematocrit 36.5 % Mean Corpuscular Volume 95.3 fL Mean Corpuscular Hemoglobin 31.1 pg Mean Corpuscular Hemoglobin Concent 32.6 g/dl Platelet Count 162 K/uL Mean Platelet Volume 9.3 fL Neutrophils (%) (Auto) 79.2 % Lymphocytes (%) (Auto) 14.9 % Monocytes (%) (Auto) 3.8 % Eosinophils (%) (Auto) 1.4 % Basophils (%) (Auto) 0.2 % Neutrophils # (Auto) 4.96 K/uL Lymphocytes # (Auto) 0.93 K/uL Monocytes # (Auto) 0.24 K/uL Eosinophils # (Auto) 0.09 K/uL Basophils # (Auto) 0.01 K/uL RDW Standard Deviation 51.4 fL RDW Coefficient of Variation 14.8 % Immature Granulocyte % (Auto) 0.5 % Immature Granulocyte # (Auto) 0.03 K/uL Prothrombin Time 43.0 SECONDS Prothromb Time International Ratio 3.8 Activated Partial Thromboplast Time 47.4 SECONDS Partial Thromboplastin Ratio 1.8 Sodium Level 140 mmol/L Potassium Level 4.0 mmol/L Chloride Level 102 mmol/L Carbon Dioxide Level 29 mmol/L Anion Gap 9.0 mmol/L Blood Urea Nitrogen 18 mg/dl Creatinine 0.88 mg/dl 0.82 mg/dl Est Creatinine Clear Calc Drug Dose 81.4 ml/min 88.8 ml/min Estimated GFR () 93.4 96.1 Estimated GFR (Non- 80.6 82.9 BUN/Creatinine Ratio 20.9 Random Glucose 110 mg/dl Calcium Level 9.1 mg/dl Magnesium Level 2.2 mg/dl Total Bilirubin 0.4 mg/dl Direct Bilirubin 0.1 mg/dl Aspartate Amino Transf (AST/SGOT) 22 U/L Alanine Aminotransferase (ALT/SGPT) 12 U/L Alkaline Phosphatase 114 U/L Total Creatine Kinase 74 U/L Creatine Kinase MB 1.4 ng/ml Creatine Kinase MB Ratio 1.9 Total Protein 6.7 gm/dl Albumin 3.0 gm/dl Bedside Troponin I 0.000 ng/ml Assessment & Plan Mr. Cortes is an 81 year old man with multiple medical comorbidities. He presents short of breath and appears, by imaging, to have a widely metastatic malignancy. The large, conglomerate abdominal mass, peritoneal carcinomatosis, and possible hepatic metastases point to a GI primary, though it is somewhat surprising that he would have such an advanced colorectal cancer with no bowel symptoms. He has no LUTS and this metastatic pattern would be highly unusual for prostate cancer. He is a smoker and this could represent a lung cancer, though this pattern of abdominal spread would also be atypical. Other possibilities include a GIST or a lymphoma. His family was very concerned about the risks of any diagnostic procedures, particularly given his age and medical comorbidities. Their concerns are important and I agree we should emphasize a diagnostic approach that involves the least risk feasible. It appears the safest first step to confirm a diagnosis would be a right thoracentesis. He has a good amount of fluid there and this would be the least-invasive procedure that might be helpful. I reviewed his scans with Dr. Marquez from pulmonology, who agreed, though he also thought he could get a diagnosis bronchoscopically if need be. In the meantime, we could also review his case and scans with GI to discuss possible colonoscopy.
--- NOTE | 2016-10-17 11:01 | Progress Note ---
Subjective Date of Service: Oct 17, 2016. Subjective Pt evaluation today including: conversation w/ patient, conversation w/ technology consultant Pt is not SOB at rest now, but has not been OOB. No chest pain, abd pain, n/v/c /d. 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 He does feel that his abd is tight and distended though. Pt denies fever, LE pain or swelling. ROS as noted above, otherwise neg. Problem List Medical Problems: (1) Malignancy Status: Acute (2) Pleural effusion, right Status: Acute Objective Vital Signs Date Time Temp Pulse Resp B/P Pulse Ox O2 Delivery O2 Flow Rate FiO2 10/17/16 08:00 90 Nasal Cannula 3.0 10/17/16 07:50 36.7 87 20 133/69 93 Nasal Cannula 2.0 10/17/16 07:31 105 134/80 10/17/16 07:03 100 16 92 Nasal Cannula 3.0 10/17/16 04:00 95 Nasal Cannula 4.0 10/17/16 03:02 96 134/80 10/17/16 02:57 36.3 106 22 134/80 96 Nasal Cannula 3.0 10/17/16 01:44 96 16 100 Nasal Cannula 4.0 10/16/16 23:59 95 Nasal Cannula 4.0 10/16/16 23:19 98 135/69 10/16/16 23:04 36.9 98 22 135/69 91 Nasal Cannula 5.0 10/16/16 20:00 91 Nasal Cannula 4.0 10/16/16 19:42 114 150/103 10/16/16 19:32 36.7 103 18 150/103 91 Nasal Cannula 3.0 10/16/16 19:06 95 16 93 Nasal Cannula 3.0 10/16/16 17:45 125/92 10/16/16 16:00 90 Nasal Cannula 3.0 10/16/16 16:00 36.8 83 20 90 Nasal Cannula 3.0 10/16/16 15:45 85 20 149/102 91 Nasal Cannula 2.0 10/16/16 15:15 91 Nasal Cannula 2.0 10/16/16 14:01 138/98 10/16/16 13:57 82 20 88 10/16/16 13:38 143/91 10/16/16 13:01 130/84 10/16/16 12:57 78 18 93 10/16/16 12:31 128/82 10/16/16 12:27 76 24 95 10/16/16 12:26 76 20 132/77 95 Nasal Cannula 2.0 10/16/16 12:21 132/77 10/16/16 12:00 72 16 139/94 92 10/16/16 11:57 75 32 92 10/16/16 11:33 78 10/16/16 11:27 77 21 93 10/16/16 10:58 95 Room Air 10/16/16 10:57 68 33 90 Physical Exam General Appearance: WD/WN, no apparent distress Respiratory/Chest: normal breath sounds, no respiratory distress Cardiovascular: regular rate, rhythm, no edema Abdomen: non tender, + distended Extremities: non-tender, no pedal edema Neurologic/Psychiatric: alert, normal mood/affect Skin: normal color, warm/dry Laboratory Results Last 24 Hours Test 10/16/16 11:30 10/16/16 11:44 10/17/16 05:49 White Blood Count 6.26 K/uL Red Blood Count 3.83 M/uL Hemoglobin 11.9 g/dL Hematocrit 36.5 % Mean Corpuscular Volume 95.3 fL Mean Corpuscular Hemoglobin 31.1 pg Mean Corpuscular Hemoglobin Concent 32.6 g/dl Platelet Count 162 K/uL Mean Platelet Volume 9.3 fL Neutrophils (%) (Auto) 79.2 % Lymphocytes (%) (Auto) 14.9 % Monocytes (%) (Auto) 3.8 % Eosinophils (%) (Auto) 1.4 % Basophils (%) (Auto) 0.2 % Neutrophils # (Auto) 4.96 K/uL Lymphocytes # (Auto) 0.93 K/uL Monocytes # (Auto) 0.24 K/uL Eosinophils # (Auto) 0.09 K/uL Basophils # (Auto) 0.01 K/uL RDW Standard Deviation 51.4 fL RDW Coefficient of Variation 14.8 % Immature Granulocyte % (Auto) 0.5 % Immature Granulocyte # (Auto) 0.03 K/uL Prothrombin Time 43.0 SECONDS Prothromb Time International Ratio 3.8 Activated Partial Thromboplast Time 47.4 SECONDS Partial Thromboplastin Ratio 1.8 Sodium Level 140 mmol/L Potassium Level 4.0 mmol/L Chloride Level 102 mmol/L Carbon Dioxide Level 29 mmol/L Anion Gap 9.0 mmol/L Blood Urea Nitrogen 18 mg/dl Creatinine 0.88 mg/dl 0.82 mg/dl Est Creatinine Clear Calc Drug Dose 81.4 ml/min 88.8 ml/min Estimated GFR () 93.4 96.1 Estimated GFR (Non- 80.6 82.9 BUN/Creatinine Ratio 20.9 Random Glucose 110 mg/dl Calcium Level 9.1 mg/dl Magnesium Level 2.2 mg/dl Total Bilirubin 0.4 mg/dl Direct Bilirubin 0.1 mg/dl Aspartate Amino Transf (AST/SGOT) 22 U/L Alanine Aminotransferase (ALT/SGPT) 12 U/L Alkaline Phosphatase 114 U/L Total Creatine Kinase 74 U/L Creatine Kinase MB 1.4 ng/ml Creatine Kinase MB Ratio 1.9 Total Protein 6.7 gm/dl Albumin 3.0 gm/dl Bedside Troponin I 0.000 ng/ml Assessment and Plan Atrial fibrillation with controlled rate, right bundle branch block, PVCs: supratherapeutic INR of 3.8 with coumadin on hold Home meds on home, with lopressor 5 mg IV every 4 hours with hold parameters Postobstructive pneumonia/right infrahilar mass/COPD--: vanco, zosyn, levaquin ( 10/16) Solu-Medrol 40 mg IV Q8h Xopenex with Atrovent nebulizer to use every 6 hours while awake and every 2 hours PRN Pulm planning for thoracentesis vs bronch 7 x 5 cm left lower quadrant mass suggesting a possible colonic neoplasm/ Abdominal carcinomatosis: Heme/onc feels this is likely primary GI, however pt has no sx c/w dx CT AP noted t/c GI c/s pending pulm findings 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 Further assessment will be based upon neoplasm workup as above. Next Liver cirrhosis--noted to be underlying metastatic liver disease. Fat-containing ventral and left inguinal hernias--stable per patient. Family is requesting minimal procedures given medical comorbidities
[2016-10-17] MEDS: NSS + 20MEQ KCL 1000ML 1,000 ML IV SCH ×2 (13:03→22:18)
--- NOTE | 2016-10-17 13:13 | DIAGNOSTIC IMAGING REPORT ---
CHEST ONE VIEW PORTABLE CLINICAL HISTORY: S/P Thoracentesis postthoracentesis COMPARISON STUDY: 10/16/2016 FINDINGS: Mild improvement in aeration right base postthoracentesis. No significant pneumothorax. IMPRESSION: Mild improvement in aeration right base postthoracentesis. No evidence of pneumothorax. Electronically signed by: Moe Winkler M.D. 10/17/2016 1:12 PM Dictated Date/Time: 10/17/2016 1:11 PM
[2016-10-17 13:46] LABS: PLEURAL FLUID TOTAL PROTEIN 3.9 g/dl
--- NOTE | 2016-10-17 13:53 | Pulmonary Consultation ---
History General Date of Service: Oct 17, 2016. Stated Complaint: Carcinomatosis, Pneumonia, right-sided pleural effusion with right perihilar mass HPI The patient is a 81 year old male who presents to [facility] with complaints of Carcinomatosis, Pneumonia. The patient's primary care provider is Raheem Smith M.D.. 81-year-old male past medical history significant for CHF, COPD(unknown severity ), and chronic atrial fibrillation treated with Coumadin. He was admitted for progressive shortness of breath. He's been treated over the last 3-4 weeks for presumed pneumonia with Levaquin. As he did not improve and continued to become more short of breath he was then admitted. At the time of our interview he denied: Hemoptysis, fever, chills, productive cough, classic cardiac chest pain , pleurisy or recent weight loss. He was worked up and noted to have a large right-sided pleural effusion as well as infrahilar mass and left lower quadrant abdominal mass. Work-Up: EKG: Atrial fibrillation, rate: 97, possible intraventricular conduction delay WBC: 6K PLT: 162K H/H: 12/37 INR: 3.8 BUN/Cr: 18/.0.88 Pleural pH: 7.41 Pleural Glucose: 160 CT abdomen/pelvis/Thorax: 1. 7 x 5 cm mass left lower quadrant 2. Lt pelvic adenopathy, mod mesenteric jean change omental carcinomatosis. 3. 5 cm partially thrombosed aneurysm infrarenal aspect abdominal aorta 4. left inguinal hernias 5. Right-sided pleural effusion 6. Right infrahilar mass 4 x 4 0.5 cm Historian: patient, family, EMS Review of Systems Constitutional: reports: weakness Eyes: reports: no symptoms ENT: reports: no symptoms Cardiovascular: reports: no symptoms Respiratory: reports: as stated in HPI Gastrointestinal: reports: no symptoms Genitourinary - Male: reports: no symptoms Musculoskeletal: reports: no symptoms Integumentary: reports: no symptoms Neurologic: reports: no symptoms Psychiatric: reports: no symptoms Endocrine: no symptoms Hematologic / Lymphatic: no symptoms Allergic / Immunologic: no symptoms Past Medical History Past Medical History: 1.Chronic diastolic congestive heart failure 2.Chronic obstructive pulmonary disease 3.Chronic renal insufficiency 4.Coughing up blood 5.Elevated hemoglobin A1c 6.Gout, joint 7.Mitral regurgitation 8.Obesity 9.atrial fibrillation / on anticoagulation 10.Primary pulmonary hypertension 11.Tricuspid regurgitation 12.Venous insufficiency 13.Cellulitis Of Right Lower Leg 14.rheumatic fever 15.Cellulitis of hand Family History Patient reports no known family medical history. 1. No pertinent family history Social History Denied: History of Drug Use Former smoker Marital History - Currently Never Drank Alcohol Occupation: Retired Hx Tobacco Use In Past Year?: No Smoking Status: Never Smoker Marital status: Housing status: lives with family Occupational Status: retired Immunizations History of Influenza Vaccine: N/A History of Tetanus Vaccine?: Yes Tetanus Immunization Date: Jan 05, 2011 History of Pneumococcal: Yes Pneumococcal Date: Jan 06, 2008 History of Hepatitis B Vaccine: No History of MDRO History of MDRO: No Allergies Coded Allergies: No Known Allergies (Verified , 10/16/16) Current Medications Reported Home Medications Medications Dose Route/Sig Max Daily Dose Days Date Category Dose Instructions Tylenol (Acetaminophen) 500 Mg Tab 2 Tab PO Q6 PRN 2 10/16/16 Reported Coreg (Carvedilol) 12.5 Mg Tab 12.5 Mg PO BID 01/07/13 Rx Coumadin (Warfarin Sodium) 5 Mg Tab 5 Mg PO DAILY@16 01/07/13 Rx Lasix (Furosemide) 40 Mg Tab 40 Mg PO UD 01/04/13 Reported BASE WEIGHT OF 222.IF GAINS TAKE MED Zyloprim * (Allopurinol) 300 Mg Tab 300 Mg PO DAILY 01/20/10 Reported Toprol-Xl (Metoprolol Succinate) 50 Mg Tabcr 50 Mg PO DAILY 01/16/10 Reported Advair Diskus 250/50 Mcg * (Salmeterol Xinafoate/Fluticasone) Aerp 1 Puff INH BID 02/21/08 Reported Imdur Ext Rel (Isosorbide Mononitrate) 60 Mg Ertab 60 Mg PO QAM 02/21/08 Reported Spiriva Handihaler (Tiotropium [place]) 18 Mcg/ Aerp 1 Cap INH DAILY 02/21/08 Reported Lanoxin (Digoxin) 0.125 Mg Tab 0.125 Mg PO DAILY 02/21/08 Reported Colchicine * (Colchicine) 0.6 Mg Tab 0.6 Mg PO QAM 02/21/08 Reported Celebrex * (Celecoxib) 200 Mg Cap 200 Mg PO Q2D 7/23/08 Reported Physical Physical Exam Vital Signs: Date Time Temp Pulse Resp B/P Pulse Ox O2 Delivery O2 Flow Rate FiO2 10/17/16 12:00 90 Nasal Cannula 3.0 10/17/16 12:00 93 135/72 10/17/16 11:31 37.0 112 20 155/94 95 Nasal Cannula 2.0 10/17/16 08:00 90 Nasal Cannula 3.0 10/17/16 07:50 36.7 87 20 133/69 93 Nasal Cannula 2.0 10/17/16 07:31 105 134/80 10/17/16 07:03 100 16 92 Nasal Cannula 3.0 10/17/16 04:00 95 Nasal Cannula 4.0 10/17/16 03:02 96 134/80 10/17/16 02:57 36.3 106 22 134/80 96 Nasal Cannula 3.0 10/17/16 01:44 96 16 100 Nasal Cannula 4.0 10/16/16 23:59 95 Nasal Cannula 4.0 10/16/16 23:19 98 135/69 10/16/16 23:04 36.9 98 22 135/69 91 Nasal Cannula 5.0 10/16/16 20:00 91 Nasal Cannula 4.0 10/16/16 19:42 114 150/103 10/16/16 19:32 36.7 103 18 150/103 91 Nasal Cannula 3.0 10/16/16 19:06 95 16 93 Nasal Cannula 3.0 10/16/16 17:45 125/92 10/16/16 16:00 90 Nasal Cannula 3.0 10/16/16 16:00 36.8 83 20 90 Nasal Cannula 3.0 10/16/16 15:45 85 20 149/102 91 Nasal Cannula 2.0 10/16/16 15:15 91 Nasal Cannula 2.0 10/16/16 14:01 138/98 10/16/16 13:57 82 20 88 General Appearance: mild distress Head: NORMOCEPHALIC, ATRAUMATIC Eyes: PERRLA, NO DISCHARGE, EOMI, SCLERAE NORMAL ENT: NORMAL EAR EXAM, NORMAL NASAL EXAM, NORMAL MOUTH EXAM, NORMAL THROAT EXAM , NORMAL DENTAL EXAM Neck: NORMAL RANGE OF MOTION, NO STRIDOR Respiratory: other (decreased breath sounds with dullness to percussion the right lower lobe/ultrasound showing large fluid/pleural effusion) Abdomen: other (positive bowel sounds, reversible hernia, no rebound appreciated) Genitourinary - Male: EXTERNAL GENITALIA NORMAL Back: NORMAL INSPECTION, NO MIDLINE TENDERNESS, NO CVA TENDERNESS, NO PARAVERTEBRAL TTP Upper Extremities: NO EDEMA, NO DEFORMITY, NORMAL ROM Lower Extremities: NO EDEMA, NO DEFORMITY, NORMAL ROM Pulses: carotid (R) (2+), carotid (L) (2+), posterior tibial (R), posterior tibial (L) (2+) Neuro: ALERT, ORIENTED x 3, NORMAL MOTOR EXAM, NORMAL SENSATION, NORMAL CEREBELLAR EXAM Reflexes: biceps (R) (2+), bicpes (L) (2+), achilles (R) (2+), achilles (L) (2+ ) Babinski Testing: right (downgoing), left (downgoing) Psychiatric: NORMAL AFFECT, NO SUICIDAL IDEATION, CONTRACTS FOR SAFETY Diagnostics Labs Results Past 24 Hours Test 10/17/16 00:00 10/17/16 05:49 10/17/16 12:47 Range/Units Pleural Fluid pH 7.41 7.3-7.4 Pleural Fluid Glucose 160 mg/dl Creatinine 0.82 0.60-1.40 mg/dl Est Creatinine Clear Calc Drug Dose 88.8 ml/min Estimated GFR () 96.1 Estimated GFR (Non- 82.9 Microbiology Results 10/17/16 MRSA DNA Surveillance Screen, Maryann Batch Pending 10/17/16 Acid Fast Stain, Received Pending 10/17/16 Mycobacterial Culture, Received Pending 10/17/16 Gram Stain, Received Pending 10/17/16 Bacterial Culture, Received Pending Diagnostic Radiology CT abdomen/pelvis/Thorax: 1. 7 x 5 cm mass left lower quadrant 2. Lt pelvic adenopathy, mod mesenteric jean change omental carcinomatosis. 3. 5 cm partially thrombosed aneurysm infrarenal aspect abdominal aorta 4. left inguinal hernias 5. Right-sided pleural effusion 6. Right infrahilar mass 4 x 4 0.5 cm EKG EKG: Atrial fibrillation, rate: 97, possible intraventricular conduction delay Impression Assessment and Plan 81-year-old male with subacute onset of shortness of breath and pleural effusion : #1 Pleural Effusion: Patient's history and recent workup for highly suggestive of primary lung carcinoma possibly metastatic disease from the bowel. This time I spoken to Dr. Andrea Lawson from hematology oncology and we agree on moving forward with thoracentesis for further evaluation and possible therapeutic intervention. I've spoken to the family as well as the patient length and we are ready to poor for thoracentesis. Please refer to that dictated note. #2 COPD: Would like to obtain previous pulmonary function tests. This will help determine patient's baseline poor a function and possible future therapeutic interventions.
[2016-10-17 14:02] LABS: PLEURAL FLUID APPEARANCE CLOUDY; PLEURAL FLUID COLOR RED; PLEURAL FLUID SOURCE RIGHT LUNG; PLEURAL FLUID WBC (A) 802 /uL
[2016-10-17 14:12] LABS: PLEURAL FLUID MONONUC RELAT 94.8 %; PLEURAL FLUID POLYNUC 5.2 %
[2016-10-17] MEDS: LEVOFLOXACIN / D5W 500 MG in PREMIXED IN D5W 100 ML IV SCH (17:07)
[2016-10-18] VITALS (10 sets, daily range): BP systolic 131–142; BP diastolic 78–91; PULSE 89–104; TEMP 36.3–36.9; O2SAT 90–99
[2016-10-18] MEDS: METOPROLOL TARTRATE 1 MG/ML VIAL IV. SCH ×3 (00:03→07:29)
[2016-10-18] MEDS: IPRATROPIUM BROMIDE NEB SOLN 0.02% 2.5 ML VIAL INH SCH ×3 (02:02→14:15)
[2016-10-18] MEDS: LEVALBUTEROL 1.25MG/0.5ML NEB INH SCH ×3 (02:02→14:15)
[2016-10-18] MEDS: METHYLPREDNISOLONE IV 40 MG in SYRINGE 0 ML IV SCH (02:28)
[2016-10-18] MEDS ORDERED: VANCOMYCIN TROUGH ONE (03:30)
[2016-10-18] MEDS: VANCOMYCIN INJ 1,500 MG in SODIUM CHLORIDE 0.9% 500ML 500 ML IV SCH ×2 (03:59→15:40)
[2016-10-18] MEDS: PIPERACILL/TAZOBAC IV 3.375 GM in DEXTROSE 5% 100ML IV SCH ×2 (06:04→13:36)
[2016-10-18] MEDS: NITROGLYCERIN OINT 2% 1GM PACKET EXT SCH ×3 (06:06→12:00)
--- NOTE | 2016-10-18 08:26 | PROGRESS NOTE ---
DATE: 10/18/2016 SUBJECTIVE: The patient is comfortable this morning. He states he feels improved after the thoracentesis. He remains in chronic atrial fibrillation. OBJECTIVE: VITAL SIGNS: His vital signs are stable and he is afebrile. He is lying at about 30 degrees, oxygen saturation 93% on four liters. His pulse is 80-90 and regular, respiratory rate 16. I Os; 3661 in and 1100 out. Weight is 112.4 kgs; it was 112.7 kgs yesterday. GENERAL: According to the nurses' notes, he had a fairly good night last night, no discomfort, had some dyspnea with exertion. He remains in atrial fibrillation, on the monitor. Note from the thoracentesis is pending. HEENT: Unremarkable. Posterior pharynx is normal. No adenopathy is noted anywhere. NECK: There is no neck vein distention or HJR. HEART: Irregular rhythm, 1/6 systolic murmur heard at the apex. LUNGS: Reveal decreased breath sounds bilaterally, with no fremitus noted. There is no dullness to percussion. ABDOMEN: Soft and nontender. EXTREMITIES: He has no cyanosis, clubbing or edema. He does have some stasis changes of the lower extremities with no evidence of DVT. The Gram stain of the pleural fluid revealed many inflammatory cells with no organism seen. LABORATORY DATA: The pH is 7.4 with 802 white cells, 54,000 red cells, predominantly mononuclear cells. The LDH is 97 with a protein of 3.9. Cholesterol is pending. A post-procedure chest x-ray revealed no evidence of pneumothorax with improvement in aeration of the right lower lobe. IMPRESSION: 1. Right pleural effusion. The cytology is pending. This is exudative effusion, certainly could be consistent with carcinoma. 2. Left lower quadrant mass. 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 RECOMMENDATIONS: 1. Follow up on the pleural effusion cytology. 2. Continue with good DVT prophylaxis with anticoagulation with his present medications. 3. At this point, I would continue on his present antimicrobial agents and perhaps switch him to 30 mg of prednisone with a taper fairly quickly. Overall, he seems to be stable. There may be a right infrahilar mass as the cytology of the pleural effusion is negative and bronchoscopy may be warranted with Dr. Marquez. [facility]
[2016-10-18 08:34] LABS: HEMATOCRIT 36.4 % (42-52); MEAN CELL VOLUME 95.3 fL (80-100); MEAN CORPUSCULAR HEMOGLOBIN 30.6 pg (25-34); MEAN CORPUSCULAR HGB CONC 32.1 g/dl (32-36); MEAN PLATELET VOLUME 9.2 fL (7.4-10.4); PLATELET COUNT 151 K/uL (130-400); RED BLOOD COUNT 3.82 M/uL (4.7-6.1); WHITE BLOOD COUNT 8.12 K/uL (4.8-10.8)
[2016-10-18 08:42] LABS: INR 2.9 (0.9-1.1); PARTIAL THROMBOPLASTIN RATIO 1.4; PROTHROMBIN TIME (PATIENT) 32.7 SECONDS (9.0-12.0)
--- NOTE | 2016-10-18 08:45 | Hematology/Oncology Prog Note ---
Hematology/Onc Progress Note Date of Service Oct 18, 2016. Diagnoses Probable carcinoma Pleural fluid Changes consistent on CT scan with peritoneal as well as intra-abdominal disease Medications Medications Administered Medications (Trade) Dose Ordered Sig/Luciana Route Start Time Stop Time Status Last Admin Dose Admin Aspirin (Aspirin Chew) 324 mg NOW STAT PO 10/16/16 11:27 10/16/16 11:29 DC 10/16/16 11:58 324 MG Albuterol/ Ipratropium (Duoneb) 3 ml NOW STAT INH 10/16/16 11:34 10/16/16 11:36 DC 10/16/16 11:59 3 ML Methylprednisolone Sodium Succinate 125 mg 125 mg NOW STAT IV 10/16/16 11:34 10/16/16 11:36 DC 10/16/16 11:59 125 MG Potassium Chloride/Sodium Chloride (Nss + 20meq KCl 1000ml) 1,000 ml @ 50 mls/hr Q20H IV 10/16/16 17:00 11/15/16 16:59 10/17/16 22:18 50 MLS/HR Nitroglycerin (Nitroglycerin 2% Oint) 1 inch Q6H EXT 10/16/16 18:00 11/15/16 17:59 10/18/16 06:06 1 INCH Metoprolol Tartrate 5 mg 5 mg Q4 IV. 10/16/16 20:00 11/15/16 19:59 10/18/16 07:29 5 MG Levofloxacin 500 mg/Prmx 100 ml @ 100 mls/hr Q24H IV 10/16/16 17:00 10/23/16 16:59 10/17/16 17:07 100 MLS/HR Methylprednisolone Sodium Succinate 40 mg/Syringe 0.64 ml @ 1.5 mls/min Q8H IV 10/16/16 18:00 11/15/16 17:59 10/18/16 02:28 1.5 MLS/MIN Vancomycin HCl 2700 mg/Sodium Chloride 554 ml @ 200 mls/hr 1545 ONCE IV 10/16/16 15:45 10/16/16 18:31 DC 10/16/16 16:31 200 MLS/HR Piperacillin Sod/ Tazobactam Sod 3.375 gm/Dextrose 115 ml @ 230 mls/hr TODAY@1700 ONCE IV 10/16/16 17:00 10/16/16 17:29 DC 10/16/16 17:00 230 MLS/HR Piperacillin Sod/ Tazobactam Sod 3.375 gm/Dextrose 115 ml @ 28.75 mls/ hr Q8H IV 10/16/16 22:00 10/23/16 21:59 10/18/16 06:04 28.75 MLS/HR Vancomycin HCl/ Sodium Chloride (Vancomycin Inj/ Nss 500ml) 530 ml @ 200 mls/hr Q12@0400,1600 IV 10/17/16 04:00 10/24/16 03:59 10/18/16 03:59 200 MLS/HR Ipratropium [place] (Atrovent 0.02% 0.5MG/2.5ML Neb) 0.5 mg Q6R INH 10/16/16 21:00 11/15/16 20:59 10/18/16 07:09 0.5 MG Levalbuterol (Xopenex 1.25MG/ 0.5ML Neb) 1.25 mg Q6R INH 10/16/16 21:00 11/15/16 20:59 10/18/16 07:09 1.25 MG Subjective He did have a thoracentesis yesterday. He denies new shortness of breath. Review of Systems: Constitutional: Negative for weight loss, night sweats, or fever Eyes: Negative for event change of vision ENT: Negative for epistaxis, nasal discharge, sore throat, or deafness Cardiovascular: Negative for chest pain, palpitations, dizziness, diaphoresis Respiratory: Negative for new shortness of breath,hemoptysis, or purulent cough Gastrointestinal: Negative for diarrhea, hematemesis, melena, nausea, vomiting , or dyspepsia Integumentary (skin): Negative for rash or jaundice discoloration Genitourinary: Negative for urinary frequency, hematuria, or dysuria Neurological: Negative for weakness, seizure activity, headache, or dizziness Lymphatic/Hematologic: Negative for petechiae, bleeding or new adenopathy Musculoskeletal: Negative for new joint or back pain Allergic/Immunologic: Negative for unusual rash or pruritis. Vital Signs Vital Signs Past 12 Hours Date Time Temp Pulse Resp B/P Pulse Ox O2 Delivery O2 Flow Rate FiO2 10/18/16 08:00 90 Nasal Cannula 3.0 10/18/16 07:29 82 10/18/16 07:09 92 16 93 Nasal Cannula 4.0 10/18/16 04:04 102 135/90 10/18/16 04:00 Nasal Cannula 2.0 10/18/16 03:40 36.5 102 26 135/90 99 Nasal Cannula 4.0 10/18/16 02:02 99 16 93 Nasal Cannula 4.0 10/18/16 00:03 80 147/96 10/17/16 23:59 Nasal Cannula 2.0 10/17/16 23:28 36.3 97 28 147/96 95 Nasal Cannula 2.0 Physical Exam Constitutional: vitals are stable. Eyes: Eyes are JASON EOMI without conjuctival erythema or icterus. ENT: External examination was negative for masses. Neck: Negative for masses or palpable thyromegaly Respiratory: Lung sounds were generally clear bilaterally Cardiovascular: Heart was RRR without significant murmur, gallops aoe rubs Gastrointestinal: No palpable hepatic or splenomegaly. The abdomen was soft with normal bowel sounds. Lymphatic system: there was no palpable peripheral lymphadenopathy Musculoskeletal System: The musculoskeletal system seemed concordant with age. Skin: The skin was negative for jaundice. Neurologic exam: The exam was negative for any focal findings. Deep tendon reflexes were equal and symmetrical. Psychiatric exam: Was essentially negative with normal mood and effect. Extremities: Negative for edema or erythema Laboratory Last 24 Hours Test 10/17/16 12:47 10/18/16 03:25 10/18/16 08:13 Lactate Dehydrogenase 149 U/L Vancomycin Level Trough 19.8 mcg/ml White Blood Count 8.12 K/uL Red Blood Count 3.82 M/uL Hemoglobin 11.7 g/dL Hematocrit 36.4 % Mean Corpuscular Volume 95.3 fL Mean Corpuscular Hemoglobin 30.6 pg Mean Corpuscular Hemoglobin Concent 32.1 g/dl RDW Standard Deviation 52.7 fL RDW Coefficient of Variation 15.1 % Platelet Count 151 K/uL Mean Platelet Volume 9.2 fL Prothrombin Time 32.7 SECONDS Prothromb Time International Ratio 2.9 Activated Partial Thromboplast Time 35.7 SECONDS Partial Thromboplastin Ratio 1.4 Assessment & Plan 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 Hopefully the pleural fluid will be able to a data fine or characterize the process. However before I could even begin to speak with Mr. Shankar he stated clearly that he didn't want any further testing and then the conversation went on that he didn't want any therapy. I asked him to wait until we at least have the pleural fluid back before we can have a discussion in regards to therapy or further testing. He reluctantly accepted that notion for now.
[2016-10-18 08:58] LABS: BUN/CREATININE RATIO 29.1 (10-20); CALCIUM 8.9 mg/dl (8.5-10.1); CREATININE 1.1 mg/dl (0.60-1.40)
--- NOTE | 2016-10-18 09:03 | Pharmacy Progress Note ---
Pharmacy Antibiotic Prog Note Date of Service: Oct 18, 2016. Subjective: The patient is currently receiving Vancomycin 1500 mg IV every 12 hours for treatment of post-obstructive pneumonia. The patient is currently on day # 3 of IV therapy. Objective: Height (Feet): 5 Height (Inches): 10.00 Weight (Kilograms): 112.400 Levels: Item Value Date Time Vancomycin Level Trough 19.8 mcg/ml 10/18/16 0325 Lab Results (24hrs): Laboratory Tests Test 10/18/16 08:13 White Blood Count 8.12 K/uL Micro Results: Item Value Date Time MRSA DNA Surveillance Screen Received 10/18/16 0600 Nasal Pending Acid Fast Stain Received 10/17/16 0000 Pleural Fluid (Thoracentesis) Right Pending Gram Stain - Final Resulted 10/17/16 0000 Pleural Fluid (Thoracentesis) Right Assessment & Plan: Assessment 81 year old male with h/o COPD receiving empiric antibiotics for post- obstructive pneumonia with right-sided pleural effusion and right perihilar mass suspicous for lung cancer. s/p thoracentesis on 10/17. Pleural fluid gram stain revealed many WBCs with no organisms, culture and pathology pending. MRSA nasal swab pending. Patient is afebrile. Risk factors for resistant organisms: * failed two courses of Levaquin (out patient) treatment this month Plan Vancomycin, Zosyn and Levaquin IV for treatment of post-obstructive pneumonia. Vancomycin IV dosing * Therapeutic trough level of 19.8 mcg/mL. * Continue Vancomycin 1500 mg (14 mg/kg) IV every 12 hours. * Goal trough level estimate for pneumonia: between 15 - 20 mcg/mL. * Trough level has been ordered for to r/o possible drug accumulation. Zosyn * Continue 3.375g IV every 8 hours (ext. infusion) for CrCl greater than 20 mL/ min Levaquin * Continue 500 mg IV every 24 hours for CrCl greater than 50 mL/min Pharmacy will continue to follow and will adjust dose/frequency as necessary. Thank you
[2016-10-18] MEDS ORDERED: PRED10TA PO (11:11)
--- NOTE | 2016-10-18 11:18 | Discharge Instructions ---
Discharge Instructions Date of Service Oct 18, 2016. Admission Reason for Admission: Carcinomatosis, Pneumonia Discharge Discharge Diagnosis / Problem: Low oxygen Discharge Goals Goal(s): Diagnostic testing, Therapeutic intervention Activity Recommendations Activity Limitations: per Instructions/Follow-up section Lifting Limitations: gradually increase as tolerated Exercise/Sports Limitations: as tolerated Shower/Bathe: no limitations . Instructions / Follow-Up Instructions / Follow-Up You were admitted to the hospital for the evaluation of your shortness of breath. You were found to have fluid in the lung as well as changes in the abdomen that were concerning. Because of our concerns we consulted both pulmonary and oncology. A thoracentesis was completed to help remove some of the fluid in the lungs and we are still waiting for the pathology results. Since you are doing so well there is no need for you to wait in the hospital for the results and we will arrange an outpatient follow up. We would also like you to continue steroids for a few more days because this can help with some of the inflammation which may have made it difficult to breath. A prescription will be given to you for this. Finally, your INR was very high which is most likely from the warfarin. We would like you to hold the warfarin for one more day before restarting. A follow up with the coag clinic will be arranged to help manage these levels and potentially change you to something different from warfarin. Current Hospital Diet Patient's current hospital diet: AHA Diet (Heart Healthy) Discharge Diet Recommended Diet: AHA Diet (Heart Healthy) Pending Studies Studies pending at discharge: yes List of pending studies: Pathology Laboratory Results Hemoglobin A1c Test 09/16/16 14:48 Range/Units Estimated Average Glucose 131 mg/dl Hemoglobin A1c 6.2 H 4.5-5.6 % Medical Emergencies . Who to Call and When: Medical Emergencies: If at any time you feel your situation is an emergency, please call 911 immediately. . Non-Emergent Contact Non-Emergency issues call your: Primary Care Provider . . "Provider Documentation" section prepared by Shelley Izquierdo. VTE Core Measure Inpt VTE Proph given/why not?: Warfarin (Coumadin)
--- NOTE | 2016-10-18 11:38 | Discharge Summary ---
Discharge Summary Date of Service Oct 18, 2016. (Shelley Izquierdo MD) Discharge Summary Admission Date: Oct 16, 2016 at 14:20 Discharge Date: Oct 18, 2016 Discharge Disposition: Home Principal Diagnosis: carcinomaosis Immunizations: Have You Had Influenza Vaccine: N/A History of Tetanus Vaccine?: Yes Tetanus Immunization Date: Jan 05, 2011 History of Pneumococcal: Yes Pneumococcal Date: Jan 06, 2008 History of Hepatitis B Vaccine: No Procedures: Right thoracentesis Consultations: Dr trevino- pulmonary Dr Aaliyah Hodge - Hem Onc (Shelley Izquierdo MD) Medication Reconciliation New Medications: Prednisone (Prednisone) 10 Mg Tab 10 MG PO UD, #6 TAB 30 mg today 20 mg day 2 10 mg day 3 stop Continued Medications: Acetaminophen (Tylenol) 500 Mg Tab 2 TAB PO Q6 PRN for Pain for 2 Days, #20 TAB 3 Refills Allopurinol (Zyloprim *) 300 Mg Tab 300 MG PO DAILY, 0 Refills Carvedilol (Coreg) 12.5 Mg Tab 12.5 MG PO BID, #60 Celecoxib (Celebrex *) 200 Mg Cap 200 MG PO Q2D, 0 Refills Colchicine (Colchicine *) 0.6 Mg Tab 0.6 MG PO QAM, 0 Refills Digoxin (Lanoxin) 0.125 Mg Tab 0.125 MG PO DAILY, 0 Refills Fluticasone Prop/Salmeterol (Advair Diskus 250/50 Mcg *) Aerp 1 PUFF INH BID, 0 Refills Furosemide (Lasix) 40 Mg Tab 40 MG PO UD, TAB BASE WEIGHT OF 222.IF GAINS TAKE MED Isosorbide Mononitrate Ext Rel (Imdur Ext Rel) 60 Mg Ertab 60 MG PO QAM, 0 Refills Metoprolol Succ (Toprol Xl) (Toprol-Xl) 50 Mg Tabcr 50 MG PO DAILY, #30 0 Refills Tiotropium [place] (Spiriva Handihaler) 18 Mcg/ Aerp 1 CAP INH DAILY, 0 Refills Warfarin Sodium (Coumadin) 5 Mg Tab 5 MG PO DAILY@16, #30 Discharge Exam Patient has significant improvement with sob since the procedure and feels well walking We did discuss his thoughts about care - he states that he had a family meeting yesterday and he does not want a lot of procedures nor treatments done because of his memories of his father in the hospital, he believes he lived a good life up to 80 - He is agreeable to d/c with close follow up with hem onc to discuss the pathology results a 2 step was completed Review of Systems: Constitutional: No fever Eyes: No worsening of vision ENT: No hearing loss Respiratory: + cough, + dyspnea at rest, + dyspnea on exertion, + shortness of breath, No sputum, No wheezing Cardiovascular: No chest pain Abdomen: No constipation, No diarrhea, No nausea, No pain, No vomiting Musculoskeletal: No joint pain, No muscle pain Genitourinary - Male: No dysuria, No hematuria Neurologic: + balance problems, + weakness, No numbness/tingling Endocrine: + fatigue Integumentary: No rash (Shelley Izquierdo MD) Hospital Course This is an 81 yo m that presented to us with persistent dyspnea and was found to have fluid in the right lung. A Ct of the abdomen was also performed and there was multiple masses and changes consistent with carcinomatosis with metastasis. A thoracentesis was completed and fluid was removed from the lung. Pathology of the fluid is still pending and will be discussed in the outpatient setting considering how well the patient was feeling after removal of this fluid. He will have to be d/c with an oxygen requirement and a script was given to the patient. The question at this point is the source of the metastasis however patient is very adamant about how much he does not wish to have a lot of testing or invasive treatments. We will arrange outpatient follow up for the patient. He was also found to have an elevated INR > 3 in the hospital while on warfarin. He uses this for PAF. He will be arranged to follow up with coag clinic and recheck INR. He was advised to hold warfarin for another 24 hour period. Considering the masses he may very well be changed to Lovenox which would be more appropriate for an individual with mets Atrial fibrillation with controlled rate, right bundle branch block, PVCs: supratherapeutic INR of 3.8 with Coumadin on hold - continue home meds- carvedilol, lopressor , digoxin - hold coumadin, follow up with coag clinic and a recheck INR Right infrahilar mass/ COPD d/c with a rapid pred tape - follow up with pulmonary in outpt - results of thoracentesis pending 7 x 5 cm left lower quadrant mass suggesting a possible colonic neoplasm/ Abdominal carcinomatosis: Heme/onc feels this is likely primary GI, however pt has no sx c/w 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 Total Time Spent: Less than 30 minutes This includes examination of the patient, discharge planning, medication reconciliation, and communication with other providers. (Shelley Izquierdo MD) Resident Physician Supervision Note: I interviewed and examined the patient. Discussed with Dr. Izquierdo and agree with findings and plan as documented in the note. Any exceptions or clarifications are listed here: None Documented By: Rosendo Boucher feeling better overall, really wants to go home. extensive discussion w family - they wanted him home, but also wanted to make sure he was safe at home - after further discussions - we all agreed to PT/OT evals. PT then recommended rehab and family decided to take him home. lung mass w malignant effusion - breathing better post thoracentesis. awaiting path but he wants to go home - outpt f/u Total Time Spent: Greater than 30 minutes (Rosendo Boucher, D.O.) Discharge Instructions Please refer to the electronic Patient Visit Report (Discharge Instructions) for additional information. (Shelley Izquierdo MD) Additional Copies To Raheem Smith M.D.
[2016-10-18] MEDS ORDERED: CARVEDILOL 12.5 MG TAB PO SCH (21:00)
[2016-10-19] MEDS ORDERED: DIGOXIN 0.125 MG TAB PO SCH (09:00)
[2016-10-19] MEDS ORDERED: METOPROLOL SUCC 50MG EXT REL TAB PO SCH (09:00)
[2016-10-19] MEDS ORDERED: FUROSEMIDE 40 MG TAB PO SCH (09:00)
== END 2016-10-18 17:11 | disposition home health service (06) | DRG 375 ==
LOC: ENRESERVTM → ENRESERVDT → C.EDB 10:28 → C.2E 14:20
PROVIDERS: ADMIT Hospitalist; ATTEND Family Medicine
PROC: 0W993ZZ Drainage of Right Pleural Cavity, Percutaneous Approach (ICD-10-PCS; principal; 2016-10-17)
DX: C78.6 Secondary malignant neoplasm of retroperitoneum and peritoneum (principal); C80.0 Disseminated malignant neoplasm, unspecified; I74.09 Other arterial embolism and thrombosis of abdominal aorta; C78.7 Secondary malignant neoplasm of liver and intrahepatic bile duct; C78.5 Secondary malignant neoplasm of large intestine and rectum; C78.00 Secondary malignant neoplasm of unspecified lung; J91.0 Malignant pleural effusion; I50.32 Chronic diastolic (congestive) heart failure; R79.1 Abnormal coagulation profile; I48.0 Paroxysmal atrial fibrillation; I45.10 Unspecified right bundle-branch block; I49.3 Ventricular premature depolarization; J44.9 Chronic obstructive pulmonary disease, unspecified; I71.4 Abdominal aortic aneurysm, without rupture; K74.60 Unspecified cirrhosis of liver; N18.9 Chronic kidney disease, unspecified; M10.9 Gout, unspecified; I87.8 Other specified disorders of veins; M19.90 Unspecified osteoarthritis, unspecified site; E66.9 Obesity, unspecified; Z68.35 Body mass index [BMI] 35.0-35.9, adult; Z53.29 Procedure and treatment not carried out because of patient's decision for other reasons; Z87.891 Personal history of nicotine dependence; Z79.51 Long term (current) use of inhaled steroids; Z79.01 Long term (current) use of anticoagulants; Z79.899 Other long term (current) drug therapy

== ENCOUNTER 2016-10-21 11:25 | Inpatient (IN) | payer OTHER ==
[~2016-10-21] VITALS: Ht 177.8 cm; Wt 111.6 kg
[~2016-10-21 11:25] MED LIST changes: +ACET-1256 PO
[2016-10-21 11:38] VITALS: BP 113/70; PULSE 93; TEMP 36.8; O2SAT 93; Ht 177.8 cm; Wt 111.6 kg
[2016-10-21] MEDS ORDERED: ONDANSETRON INJ 2 MG/ML 2 ML VIAL IV PRN (12:45)
[2016-10-21] MEDS ORDERED: FUROSEMIDE 40 MG TAB PO PRN (12:45)
[2016-10-21] MEDS ORDERED: ALUMINUM/MAGNESIUM/SIMETH (MAALOX MAX) 30 ML UDC PO PRN (12:45)
[2016-10-21] MEDS ORDERED: MAGNESIUM HYDROXIDE SUSP 30 ML UDC PO PRN (12:45)
[2016-10-21] MEDS ORDERED: CARV12.52 PO (12:52)
[2016-10-21] MEDS ORDERED: POLYETHYLENE (MIRALAX) 17 GM PACK PO PRN (13:15)
--- NOTE | 2016-10-21 13:31 | History and Physical ---
History & Physical Date & Time of Service: Oct 21, 2016 at 12:59 Chief Complaint: R Plural Infusion Primary Care Physician: Raheem Smith M.D. History of Present Illness Source: patient, family ( and son at bedside), clinic records, hospital records This is an 81 y/o male with a history of atrial fibrillation, CHF, COPD, and gout who presented for a direct admission on 10/21 with shortness of breath. The patient had recently been admitted on 10/16, when he was found to have a right pleural effusion. Based on the patient's CT scans of the chest and abdomen, there are concerns of carcinoma with metastasis, unknown if lung or abdomen is primary. The patient had a thoracentesis on 10/17 and was feeling much better afterwards. Pathology report from the pleural fluid did not show malignant cells. The pleural fluid culture was also negative. The patient was discharged on 10/18. The patient reports that after going home, he was feeling well for a few days. Last night he began to develop shortness of breath and FERRARI again. He denies orthopnea. The patient had a lot of difficulty sleeping due to shortness of breath and admits to PND. The patient has also been requiring his oxygen more frequently at home since yesterday and has been feeling more fatigued than normal. The patient went to see Dr. Diane today who suspected his symptoms were due to recurrent right pleural effusion. Patient family agreed to come back to the hospital for readmission. The patient denies fevers, chills, sweats, chest pain, palpitations, claudication, cough, wheezing, nausea, vomiting, abdominal pain, dysuria, hematuria, urinary retention, paralysis, weakness, numbness and tingling. Past Medical/Surgical History Medical Problems: (1) A-fib Status: Chronic (2) CHF (congestive heart failure) Status: Chronic (3) COPD (chronic obstructive pulmonary disease) Status: Chronic Family History Cancer (breast) Heart disease Myocardial infarction Social History Smoking Status: Former Smoker Smokeless Tobacco Use: No Alcohol Use: none Drug Use: none Marital Status: Housing status: lives with significant other Occupational Status: retired Immunizations History of Influenza Vaccine: N/A History of Tetanus Vaccine?: Yes Tetanus Immunization Date: Jan 05, 2011 History of Pneumococcal: Yes Pneumococcal Date: Jan 06, 2008 History of Hepatitis B Vaccine: No Multi-Drug Resistant Organisms History of MDRO: No Allergies Coded Allergies: No Known Allergies (Verified , 10/16/16) Home Medications Scheduled Allopurinol (Zyloprim *), 300 MG PO DAILY Carvedilol (Coreg), 12.5 MG PO DAILY Celecoxib (Celebrex *), 200 MG PO Q2D Colchicine (Colchicine *), 0.6 MG PO QAM Fluticasone Prop/Salmeterol (Advair Diskus 250/50 Mcg *), 1 PUFF INH BID Furosemide (Lasix), 40 MG PO UD Isosorbide Mononitrate Ext Rel (Imdur Ext Rel), 60 MG PO QAM Metoprolol Succ (Toprol Xl) (Toprol-Xl), 50 MG PO DAILY Tiotropium [place] (Spiriva [place]), 1 CAP INH DAILY Warfarin Sodium (Coumadin), 5 MG PO DAILY@16 Scheduled PRN Acetaminophen (Tylenol), 2 TAB PO Q6 PRN for Pain Review of Systems Constitutional: + fatigue, No chills, No fever, No sweats Eyes: No diplopia, No eye pain, No worsening of vision ENT: No hearing loss, No sore throat, No trouble swallowing Respiratory: + dyspnea on exertion, + problem reported (requiring home O2 more frequently), + shortness of breath, No cough, No wheezing Cardiovascular: + PND, No chest pain, No claudication, No orthopnea, No palpitations Abdomen: No nausea, No pain, No vomiting Musculoskeletal: No calf pain, No joint pain, No muscle pain Genitourinary - Male: No dysuria, No hematuria, No urinary retention Neurologic: No numbness/tingling, No paralysis, No weakness Integumentary: No color change, No itch, No rash Physical Exam General Appearance: WD/WN, no apparent distress, + obese Head: normocephalic, atraumatic Eyes: normal inspection, PERRL, EOMI ENT: normal ENT inspection, hearing grossly normal, pharynx normal Neck: supple, no JVD, trachea midline Respiratory/Chest: lungs clear, normal breath sounds, no respiratory distress, + decreased breath sounds (bases bilaterally, R>L) Cardiovascular: no gallop, no murmur, + irregularly irregular (rate controlled) Abdomen/GI: normal bowel sounds, non tender, soft, + hernia (umbilical hernia) Extremities/Musculoskelatal: normal inspection, no calf tenderness, + swelling (1+ pitting edema lower extremities bilaterally) Neurologic/Psych: alert, normal mood/affect, oriented x 3 Skin: normal color, warm/dry, no rash Diagnostics Laboratory Results Results Past 24 Hours Test 10/21/16 12:39 Range/Units Impression Assessment and Plan 81 y/o male with a history of atrial fibrillation, CHF, COPD, and gout who presented for a direct admission on 10/21 with shortness of breath. Patient recently discharged on 10/18 after developing a right pleural effusion and having a thoracentesis on 10/17. 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 Pleural fluid pathology negative for malignant cells, culture negative. Patient presented to Dr. Diane's office just prior to arrival with worsening SOB, FERRARI, and fatigue , suspected to be secondary to a recurrent right pleural effusion. Shortness of breath, presumed recurrent right pleural effusion--recent thoracentesis by Dr. Marquez on 10/17 -[facility] -Consult thoracic surgery as patient may need further surgical intervention -Consult Dr. Marquez as patient is known to him -O2 by protocol Atrial fibrillation--Currently rate controlled -Continue metoprolol succinate 50 mg PO qd -Hold warfarin for now due to possible procedure -Check PT/INR now as patient had been supratherapeutic a few days ago Chronic diastolic CHF--stable, right pleural effusion likely secondary to malignancy -Continue Imdur 60 mg PO qd, carvedilol 12.5 mg PO qd, and Lasix 40 mg qd prn weight gain COPD -Continue Advair 1 puff inh BID and Spiriva 1 puff inh qd Gout -Continue allopurinol 300 mg PO qd and colchicine 0.6 mg PO qd DVT prophylaxis -Hold chemical prophylaxis due to possible procedure -PANCHO breen and SCDs Code Status -Level V, DO NOT RESUSCITATE -Spoke with patient and family at bedside who are in agreement of DO NOT RESUSCITATE status. Patient's son wishes to fill out POLST form. Dispo -Patient comes from home where he lives with his . -PT, OT ordered Level of Care Med/Surg Resuscitation Status DO NOT RESUSCITATE VTE Prophylaxis VTE Risk Assessment Done? Y/N: Yes Risk Level: Moderate Given or contraindicated: T.E.DRebecca Stockings, SCD's
[2016-10-21 13:47] LABS: BASO % 0.1 %; BASO ABS # 0.01 K/uL (0-0.2); COMPLETE YES; EOS % 0.1 %; HEMATOCRIT 37.2 % (42-52); IG% 0.4 %; LYMPH % 10.2 %; LYMPH ABS # 0.92 K/uL (1.2-3.4); MEAN CELL VOLUME 94.7 fL (80-100); MEAN CORPUSCULAR HEMOGLOBIN 30.5 pg (25-34); MEAN CORPUSCULAR HGB CONC 32.3 g/dl (32-36); MEAN PLATELET VOLUME 10.3 fL (7.4-10.4); MONO % 2.5 %; NEUT % 86.7 %; PLATELET COUNT 160 K/uL (130-400); RED BLOOD COUNT 3.93 M/uL (4.7-6.1); WHITE BLOOD COUNT 9.03 K/uL (4.8-10.8)
--- NOTE | 2016-10-21 13:49 | DIAGNOSTIC IMAGING REPORT ---
CHEST 2 VIEWS ROUTINE HISTORY: dyspnea, suspected right pleural effusion COMPARISON: Chest 10/17/2016. FINDINGS: Small right and trace left pleural effusion are again noted. Bibasilar linear densities suggesting subsegmental atelectasis. The heart remains mildly enlarged. No pneumothorax. Left upper lobe calcified granulomas again noted. Right medial lung base opacity, unchanged. IMPRESSION: 1. Small right and trace left pleural effusion. This is similar to the prior study. 2. Bibasilar densities are nonspecific but may be due to atelectasis from the pleural fluid. Electronically signed by: Brad Keane M.D. 10/21/2016 1:48 PM Dictated Date/Time: 10/21/2016 1:46 PM
[2016-10-21 14:03] LABS: PARTIAL THROMBOPLASTIN RATIO 1.8; PROTHROMBIN TIME (PATIENT) 42.2 SECONDS (9.0-12.0)
[2016-10-21 14:07] LABS: INR 3.7 (0.9-1.1)
[2016-10-21 14:12] LABS: BUN/CREATININE RATIO 35.3 (10-20); CALCIUM 8.3 mg/dl (8.5-10.1); CREATININE 0.84 mg/dl (0.60-1.40); POTASSIUM 3.8 mmol/L (3.5-5.1)
[2016-10-21 14:14] LABS: ALB/GLOB RATIO 0.8 (0.9-2)
[2016-10-21 15:51] VITALS: BP 122/73; PULSE 93; TEMP 36.6; O2SAT 90
--- NOTE | 2016-10-21 16:04 | Medical Consult ---
Consultation Note Date of Service Oct 21, 2016. Consultation Note Consult Dictated #[id number]
[2016-10-21 16:27] VITALS: O2SAT 90
--- NOTE | 2016-10-21 16:49 | CONSULTATION REPORT ---
DATE OF CONSULTATION: 10/21/2016 REASON FOR CONSULTATION: Pleural effusion. HISTORY OF PRESENT ILLNESS: This is a very pleasant 81-year-old male who was admitted to [facility] on October 16 through October 18. During that aforementioned admission, patient was noted to have shortness of breath and he was seen by Dr. Dioni Marquez who performed a thoracentesis during that admission. The patient notes that he did have significant relief of his shortness of breath following that procedure. Labs from that thoracentesis were reviewed and the cytology was negative for malignancy and the microbiology was negative for any infectious process. The patient was ultimately discharged home and he said he was doing well. The patient reports having a fairly good day yesterday; however, yesterday evening the patient's noted him to be more shortness of breath. She notes that he is sometimes even short of breath at rest. The patient admits to orthopnea, but he notes this has been present for about 6 years and he sleeps with his head propped up on 1 pillow. The patient has not had any fevers, shakes or chills. He denies any weight loss. He denies chronic lower extremity edema and he feels that this has not gotten worse. The patient says he was at a routine cardiology followup appointment and due to his shortness of breath, he was referred for a chest x-ray that showed that the patient did have some recurrence of his pleural effusion on the right side and he was referred for direct admission. As the pleural effusion was felt to be recurrent, we are asked to participate in his care at this time. Concerning other symptomatology, the patient has not had any recent falls or visual changes. He denies any tinnitus or vertigo, epistaxis or sore throat. He denies any neck pain. He denies chest pain. He does note shortness of breath, more pronounced with exertion as well as orthopnea. He notes chronic lower extremity edema. He denies any abdominal pain, nausea, vomiting or diarrhea. He denies any change in appetite. He says he has not had any increase in his abdominal girth. Again, he denies any fevers, shakes or chills. He also denies weight loss. He denies history of seizure. He denies any history of DVT or PE. He denies issues with anxiety or depression. Today, the patient did have a chest x-ray that showed small right pleural effusion and a trace left pleural effusion which were felt to be similar to prior studies. Thus far today, he has had labs where white blood cell count and platelet count were both within normal range. Hemoglobin and hematocrit 12.0 and 37.2. His INR is 3.7. Chemistry profile showed sodium, potassium and creatinine all within the normal range. BUN had a slight elevation at 30. At the time of my visit, the patient was resting comfortably in bed without significant dyspnea while at rest. PAST MEDICAL HISTORY: Includes the followin. Atrial fibrillation. 2. History of a CHF. 3. COPD. 4. Gout. 5. History of pleural effusion. SOCIAL HISTORY: The patient says he is a former smoker having quit approximately 10 years ago. Did admit to smoking 1 to 1-1/2 packs of cigarettes per day for 35 years. FAMILY HISTORY: The patient's mother suffered from breast cancer. ALLERGIES: He does not report any known medicine allergies. OUTPATIENT MEDICATION REGIMEN: Includes the followin. Tylenol as needed. 2. Allopurinol 300 mg daily. 3. Coreg 12.5 mg daily. 4. Celebrex 200 mg every other day. 5. Colchicine 0.6 mg daily. 6. Advair Diskus 250/50 twice daily. 7. Lasix 40 mg daily. 8. Imdur 60 mg daily. 9. Toprol 50 mg daily. 10. Spiriva daily. 11. Coumadin 5 mg daily. REVIEW OF SYSTEMS: As noted above. PHYSICAL EXAMINATION: VITAL SIGNS: The patient is afebrile. Temperature 36.6, pulse 93 and regular, respirations are 18 and unlabored, blood pressure 122/73, pulse ox 90% on 3 liters. SKIN: Warm with good turgor. GENERAL: He is alert and he is oriented x3 and he is in no distress. HEENT: Head is atraumatic, normocephalic. EYES: Pupils equal, round and reactive to light and accommodation. Extraocular motions are intact. EARS: Auditory acuity is grossly intact. NOSE: Nasal patency was intact. Sinuses are nontender. Mouth is moist without exudates. NECK: Supple. There is no tracheal shift or stridor. CARDIOVASCULAR: Revealed a regular rate and rhythm. LUNGS: The patient's lungs revealed breath sounds were decreased at the bases with the right noted to be more decreased than the left. He was not using accessory muscles to aid in respirations. ABDOMEN: Soft, but rotund. EXTREMITIES: Revealed the patient had 2-3+ lower extremity edema bilaterally. No calf tenderness is noted. NEUROLOGIC: Revealed cranial nerves II through XII are grossly intact. No focal deficits are noted. DIAGNOSTIC DATA: As noted above. IMPRESSION: An 81-year-old male with pleural effusion. PLAN: The etiology of patient's pleural effusion has not yet been ascertained. Reviewing the patient's prior films and studies revealed the patient did have a recent CT scan of his abdomen and pelvis on the 18 of this month. This did show the patient has 7 x 5 cm mass in the left lower quadrant encompassing components of his sigmoid and small bowel. There is also concern for possible metastatic changes in the patient's liver. There is a pelvic adenopathy noted as well. A neoplastic process and diagnostic evaluation has not yet been undertaken. Certainly this could be contributing to the patient's pleural effusion. The patient is currently stable this at this point in time as he does have a supratherapeutic INR, we will not perform any procedures at this time. I have discussed with the hospitalist service and they are in the process of reversing patient's INR with vitamin K and we will repeat an INR in the morning. Tomorrow morning, we will perform a bedside ultrasound and if his INR is acceptable, we will consider doing a repeat thoracentesis or PleurX catheter as the patient was noted to have a large enough fluid pocket to drain safely. If pleural fluid is drained, we will send appropriate diagnostic studies including a cytology as well as microbiology. I have discussed with the patient and his family who are present at bedside and they expressed their understanding. ABDIRAHMAN
--- NOTE | 2016-10-21 17:47 | SURGICAL CONSULTATION ---
DATE OF CONSULTATION: 10/21/2016 I saw Mr. Cortes today with his and 2 children. We discussed the problems with his right pleural effusion. The patient has multiple findings on CT of the abdomen and pelvis to suggest a probable malignant process. The fluid which was drained from his right chest [address] Dioni Marquez is a transudate with no evidence of malignancy on cytology. The lower chest is markedly abnormal on the right. The lower aspect of the anterior diaphragm is markedly thickened. He does not have much in the way of mediastinal lymph node enlargement. The findings on the CT of his abdomen are also ominous. The patient's current INR is 3.7. We are going to reverse his anticoagulation and I think placing a PleurX catheter in tomorrow as he is markedly symptomatic from this pleural effusion. He was much better after Dr. Marquez performed a thoracentesis. I would like to repeat a CT scan after we drain his fluid, although I think that at this point it does appear that this process around his diaphragm and liver is amenable to a percutaneous biopsy. MTDJuventino
[2016-10-21] MEDS: FLUTICASONE/SALMETEROL 250/50 (ADVAIR) 14 PUFF/1 INHALER INH SCH (20:58)
[2016-10-22] VITALS (21 sets, daily range): BP systolic 92–132; BP diastolic 43–80; PULSE 18–105; TEMP 36.2–37.1; O2SAT 90–95
[2016-10-22 07:26] LABS: INR 2.6 (0.9-1.1); PROTHROMBIN TIME (PATIENT) 29.4 SECONDS (9.0-12.0)
[2016-10-22 07:28] LABS: HEMATOCRIT 37.3 % (42-52); MEAN CELL VOLUME 94.7 fL (80-100); MEAN CORPUSCULAR HEMOGLOBIN 30.2 pg (25-34); MEAN CORPUSCULAR HGB CONC 31.9 g/dl (32-36); MEAN PLATELET VOLUME 10.6 fL (7.4-10.4); PLATELET COUNT 147 K/uL (130-400); RED BLOOD COUNT 3.94 M/uL (4.7-6.1); WHITE BLOOD COUNT 8.22 K/uL (4.8-10.8)
[2016-10-22 07:53] LABS: BUN/CREATININE RATIO 40.3 (10-20); CALCIUM 8.4 mg/dl (8.5-10.1); CREATININE 0.74 mg/dl (0.60-1.40); POTASSIUM 3.7 mmol/L (3.5-5.1)
--- NOTE | 2016-10-22 07:54 | PULMONARY CONSULTATION ---
DATE OF CONSULTATION: 10/22/2016 DATE OF CONSULTATION: 10/22/2016. HISTORY OF PRESENT ILLNESS: The patient is a very pleasant 81-year-old male who was readmitted to the hospital with dyspnea. He recently was hospitalized here and discharged on 10/16/2016, had a right thoracentesis done by Dr. Marquez and I believe shows an exudative effusion with a protein of 3.8, although the LDH is a bit low. Nonetheless, the cytology was absolutely negative for malignancy but did show some rare atypical cells and a number of histiocytosis noted as well. The stains however were negative. Some abnormal nuclei were noted in some of the cells which made them atypical, but not frankly malignant. He does have changes consistent with a left lower quadrant mass and probable carcinomatosis with studding of the diaphragm and surface of the liver. Nonetheless, he actually went home. When I reviewed his records, he had been on prednisone here and I cannot say that he was sent home on prednisone. He had been on 30 mg here. Several days after being discharged he developed worsening shortness of breath and Dr. Villar has asked me to evaluate the patient from a pulmonary standpoint. He has been seen by Dr. Hurtado as well. The patient carries a history of atrial fibrillation, chronic obstructive lung disease related to heavy history of tobacco use and gout. The thoracentesis on the was performed and he states he felt considerably better after that was done. He was feeling well for several days and then the night before admission developed some shortness of breath again with exertion and had difficulty with lying flat because of dyspnea. He saw Dr. Diane and was sent for admission. Presently, he is lying on his left side. He states he feels considerably improved with the oxygen. Dr. Hurtado's note is appreciated. PAST MEDICAL HISTORY: Significant for chronic obstructive lung disease. He carries a history of atrial fibrillation, gout, diastolic congestive heart failure. FAMILY HISTORY: Significant for breast cancer and heart disease. SOCIAL HISTORY: He started smoking about age 18. Quit about 12 years ago. He smoked cigarettes. He is not an alcohol user. He lives with his and has several children. He worked at [employer]. He appears to be up to date with his immunizations. ALLERGIES: He has no allergies. His previous records were reviewed. MEDICATIONS: Noted. PHYSICAL EXAMINATION: VITAL SIGNS: Blood pressure 126/77, pulse is 90 and regular, respiratory rate 18, oxygen saturation 93% on room air, was 90 on 3 liters. He actually has a nasal cannula in place. I believe that was on oxygen at 3 liters, probably is an error in the record from 0058 hours. He is afebrile. His weight is 107.8 kilograms. He was 109.9 kilograms on the 18th, 112.4 kilograms with the bed scale which was a different scale on 10/18/2016. HEAD, EYES, EARS, NOSE, AND THROAT: Unremarkable. No neck vein distention or HJR. No bruits are auscultated. The thyroid is normal to palpation. I do not detect any adenopathy. CHEST EXAMINATION: Shows fairly good expansion with deep inspiration. HEART: Irregular rhythm. I thought the second heart sound was variable in intensity. I do not detect any murmurs or gallops. LUNGS: Revealed markedly decreased breath sounds bilaterally. I do not detect any dullness to percussion. ABDOMEN: Soft, nontender. He does have a large umbilical hernia. I do not detect any masses. Liver can not be palpated. EXTREMITIES: He has +2 edema of the pretibial area with no evidence of DVT. Chest x-ray revealed some basilar atelectasis with some small right pleural effusion and minimal left pleural effusion. LABORATORY DATA: White count 9.0, hemoglobin 12, platelet count 160,000. INR was 3.7 yesterday. CO2 is 33 on the electrolytes suggesting some hypercapnia. It was 32 on the so that has been stable. BUN is 30, creatinine 0.84, glucose 113. Liver function studies are normal. Albumin slightly reduced at 2.8. IMPRESSION: 1. Respiratory insufficiency related to chronic obstructive lung disease. Small right pleural effusion, probable significant carcinomatosis. 2. Left lower quadrant abdominal mass with what appears to be studding of the subdiaphragmatic area on the right side superior aspect of the liver capsule and the abdomen. It is certainly conceivable he could have lymphangitic spread of tumor into the dyspnea with exertion. 3. Right hilar mass by previous CT scan. This could be lymphadenopathy related to an additional carcinoma or perhaps metastasis from a left lower quadrant abdominal mass. The pleural fluid cytology from 10/18/2016 showed some atypical cells but could not confirm carcinoma. RECOMMENDATIONS: 1. At this point, Dr. Hurtado is considering a PleurX catheter which I think will help to drain the right hemithorax. Cytology could be checked on that again when the catheter is placed. 2. Consider radiology evaluation to see if the mass in the abdomen or the subdiaphragmatic nodular densities could be biopsied percutaneously by CAT scan guidance. 3. Continue on Spiriva 1 inhalation every morning and the Advair 1 puff b.i.d. From a respiratory standpoint he seems to be stable with no wheezing noted now. Thanks for asking me to evaluate Mr. Cortes. I will be glad to see him again during his hospitalization.
--- NOTE | 2016-10-22 08:00 | Hospitalist Progress Note ---
Hospitalist Progress Note Date of Service Oct 22, 2016. Subjective Pt evaluation today including: conversation w/ patient, physical exam, chart review, lab review, review of studies, review of inpatient medication list Pain: None PO Intake: Good Voiding: no voiding problems The patient was seen and examined this morning. Pt reports doing well today. States he is still short of breath, wearing supplemental oxygen. He is resting comfortable and tolerated breakfast without difficulty. He denies any chest pain, abdominal pain, nausea, vomiting, distension, constipation or diarrhea. Additional Comments: ROS: Constitutional: No fever, chills, sweats, fatigue or weakness Eyes: No diplopia, no changes in vision ENT: No sore throat, tinnitus, or trouble swallowing Respiratory: + shortness of breath, wearing 3L Os via NC, + dyspnea on exertion, no cough or sputum Cardiovascular: No chest pain, palpitations, or flutter Abdomen: No pain, No constipation, No diarrhea, No nausea, No vomiting Musculoskeletal: No calf pain, No joint pain, No swelling Genitourinary : No dysuria or urinary frequency, No hematuria Neurologic: No numbness/tingling, no difficulty with ambulation, no sensory or motor deficits Psychiatric: No depression or anxiety symptoms Integumentary: No itch, No rash Objective Vital Signs Date Time Temp Pulse Resp B/P Pulse Ox O2 Delivery O2 Flow Rate FiO2 10/22/16 00:58 36.7 105 18 126/77 93 Room Air 10/22/16 00:05 90 Nasal Cannula 3.0 10/21/16 16:27 90 Nasal Cannula 3.0 10/21/16 15:51 36.6 93 18 122/73 90 Nasal Cannula 3.0 10/21/16 11:38 36.8 93 18 113/70 93 Nasal Cannula 3.0 Physical Exam Notes: Physical exam General: awake, alert, no apparent distress Head: Normocephalic, atraumatic ENT: PERRL, EOMI, no pharyngeal exudate, mucous membranes moist Chest: + 3L via NC, + diminished breath sounds at the right base, good breath sounds in other manzanares. Cardiac: Regular rate and rhythm, no murmur, no JVD, normal peripheral pulses, good capillary refill Abdominal: NABS x 4 quadrants, soft, nontender to palpation, no rebound, guarding or tenderness Extremities: Normal inspection, no peripheral edema or erythema, calfs nontender to palpation Psych: Normal mood and affect Neuro: AAO x 3, strength intact bilaterally and related 5/5, no motor deficits, speech is clear, no peripheral sensory deficits Laboratory Results Last 24 Hours Test 10/21/16 13:25 10/22/16 06:31 White Blood Count 9.03 K/uL 8.22 K/uL Red Blood Count 3.93 M/uL 3.94 M/uL Hemoglobin 12.0 g/dL 11.9 g/dL Hematocrit 37.2 % 37.3 % Mean Corpuscular Volume 94.7 fL 94.7 fL Mean Corpuscular Hemoglobin 30.5 pg 30.2 pg Mean Corpuscular Hemoglobin Concent 32.3 g/dl 31.9 g/dl Platelet Count 160 K/uL 147 K/uL Mean Platelet Volume 10.3 fL 10.6 fL Neutrophils (%) (Auto) 86.7 % Lymphocytes (%) (Auto) 10.2 % Monocytes (%) (Auto) 2.5 % Eosinophils (%) (Auto) 0.1 % Basophils (%) (Auto) 0.1 % Neutrophils # (Auto) 7.82 K/uL Lymphocytes # (Auto) 0.92 K/uL Monocytes # (Auto) 0.23 K/uL Eosinophils # (Auto) 0.01 K/uL Basophils # (Auto) 0.01 K/uL RDW Standard Deviation 51.9 fL 52.2 fL RDW Coefficient of Variation 15.0 % 15.0 % Immature Granulocyte % (Auto) 0.4 % Immature Granulocyte # (Auto) 0.04 K/uL Prothrombin Time 42.2 SECONDS 29.4 SECONDS Prothromb Time International Ratio 3.7 2.6 Activated Partial Thromboplast Time 46.2 SECONDS Partial Thromboplastin Ratio 1.8 Sodium Level 143 mmol/L Potassium Level 3.8 mmol/L Chloride Level 105 mmol/L Carbon Dioxide Level 33 mmol/L Anion Gap 5.0 mmol/L Blood Urea Nitrogen 30 mg/dl Creatinine 0.84 mg/dl Est Creatinine Clear Calc Drug Dose 84.8 ml/min Estimated GFR () 95.2 Estimated GFR (Non- 82.1 BUN/Creatinine Ratio 35.3 Random Glucose 113 mg/dl Calcium Level 8.3 mg/dl Total Bilirubin 0.8 mg/dl Aspartate Amino Transf (AST/SGOT) 25 U/L Alanine Aminotransferase (ALT/SGPT) 27 U/L Alkaline Phosphatase 82 U/L Total Protein 6.3 gm/dl Albumin 2.8 gm/dl Globulin 3.5 gm/dl Albumin/Globulin Ratio 0.8 Assessment and Plan 81 y/o male w PMHx of atrial fibrillation, CHF, COPD, and gout who presented for a direct admission on 10/21 with shortness of breath. Patient recently discharged on 10/18 after developing a right pleural effusion and having a thoracentesis on 10/17. 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 Pleural fluid pathology negative for malignant cells, culture negative. Shortness of breath, presumed recurrent right pleural effusion--recent thoracentesis by Dr. Marquez on 10/17 - CXR now 1. Small right and trace left pleural effusion. This is similar to the prior study. 2. Bibasilar densities are nonspecific but may be due to atelectasis from the pleural fluid. - Thoracic Surg on board - plans for a pleurex catheter - Reviewed CT scan completed on 10/16, showing an right infrahilar mass along with questionable liver changes concerning for metastasis, this certainly would contribute to the right pleural effusion. - INR 2.6, given 2.5 mg Vit K yesterday, administered another 2.5 mg PO this morning - O2 by protocol Atrial fibrillation--Currently rate controlled - Continue metoprolol succinate 50 mg PO qd - Hold Warfarin Chronic diastolic CHF- -stable, right pleural effusion likely secondary to malignancy -Continue Imdur 60 mg PO qd, carvedilol 12.5 mg PO qd, and Lasix 40 mg qd prn weight gain COPD -Continue Advair 1 puff inh BID and Spiriva 1 puff inh qd Gout -Continue allopurinol 300 mg PO qd and colchicine 0.6 mg PO qd DVT ppx: Charles, SCD, hold warfarin CODE STATUS: DNR, son to fill out a POLST Dispo: From home, lives with , PT/OT, CM to assist with dc planning
[2016-10-22] MEDS: FLUTICASONE/SALMETEROL 250/50 (ADVAIR) 14 PUFF/1 INHALER INH SCH ×2 (08:14→21:25)
[2016-10-22] MEDS: TIOTROPIUM BROMIDE 5 PUFF/90 MCG INH INH SCH (08:14)
[2016-10-22] MEDS: CeleBREX 200 MG CAP PO SCH (08:15)
[2016-10-22] MEDS: COLCHICINE 0.6 MG TAB PO SCH (08:16)
[2016-10-22] MEDS: ISOSORBIDE MONONITRATE 60 MG TABCR PO SCH (08:16)
[2016-10-22] MEDS: CARVEDILOL 12.5 MG TAB PO SCH (08:16)
[2016-10-22] MEDS: ALLOPURINOL 300 MG TAB PO SCH (08:17)
[2016-10-22] MEDS: METOPROLOL SUCC 50MG EXT REL TAB PO SCH (08:17)
[2016-10-22] MEDS ORDERED: PHYTONADIONE 5 MG TAB PO ONE (08:45)
[2016-10-22] MEDS ORDERED: PHYTONADIONE PED 1 MG/0.5ML AMP/SYRG IV ONE (09:00)
--- NOTE | 2016-10-22 09:06 | SURGERY PROGRESS NOTE ---
DATE: 10/22/2016 DATE: 10/22/2016. Mr. Cortes has not changed overnight. He still has some shortness of breath and still is requiring oxygen. I had a long discussion with the family last night and the patient and also discussed this with Dr. Brad Keane today from radiology. This process in his right lateral lower chest is amenable to needle biopsy. His INR is still gapped and we are going to correct this aggressively today so this can be done. Should this represent a malignancy as I suspect the family may want to take him home.
[2016-10-22] MEDS ORDERED: PHYTONADIONE IV ONE (10:00)
[2016-10-22] MEDS ORDERED: SODIUM CHLORIDE 0.9% IV ONE (10:00)
[2016-10-22] MEDS ORDERED: LORAZEPAM 0.5 MG TAB ONE (10:16)
[2016-10-22] MEDS ORDERED: LORAZEPAM 0.5 MG TAB PO ONE (10:30)
[2016-10-22] MEDS ORDERED: NURSING VERBAL MED ORDER ONE (10:30)
[2016-10-22 12:13] LABS: PROTHROMBIN TIME (PATIENT) 21.7 SECONDS (9.0-12.0)
--- NOTE | 2016-10-22 13:43 | Progress Note ---
Progress Note Date of Service Oct 22, 2016. Progress Note Due to findings on abdominal CT scan, needle bx. under radiology guidance requested for today. Pt. noted to have INR of 2.6 this morning. He received 1 mg IV vitamin K, 2.5 mg oral vitamin K, and 1 unit of FFP--INR decreased to 2.0. Second unit of FFP ordered. Case discussed with Dr. Whitten of radiology--he noted procedure will be completed after 2nd unit of FFP given without the need to recheck INR. He did ask we change procedure to CT guided needle bx. Discussed with RN--she noted FFP will be completed and pt. will be ready for transport at approx. 2:[address] scan notified and they plan on calling for pt. at approx. 2 pm. Pt. and family updated at bedside.
--- NOTE | 2016-10-22 15:20 | DIAGNOSTIC IMAGING REPORT ---
CT-GUIDED FINE-NEEDLE ASPIRATION OF AN ABDOMINAL MASS CLINICAL HISTORY: bx. of abdominal mass PROCEDURE: Written informed consent was obtained. The patient was positioned supine on the CT table. Preliminary imaging was performed to determine a safe needle entry site. The right upper quadrant was prepped and draped in the usual sterile fashion. 1% lidocaine was used for local anesthesia. A total of 2 passes were made through the omental soft tissue abnormality with a 22-gauge x 9 cm Juan needle. The specimens were given to the on-site pathologist who determined adequate tissue for diagnosis. There were no immediate complications. The patient tolerated the procedure well. IMPRESSION: CT-guided fine-needle aspiration of a right upper quadrant omentum mass. No immediate complications. Electronically signed by: Brad Keane M.D. 10/22/2016 3:18 PM Dictated Date/Time: 10/22/2016 3:16 PM
[2016-10-23] VITALS (7 sets, daily range): BP systolic 116–130; BP diastolic 68–82; PULSE 90–94; TEMP 36.7–37.1; O2SAT 90–97
--- NOTE | 2016-10-23 06:36 | PROGRESS NOTE ---
DATE: 10/23/2016 SUBJECTIVE: The patient is comfortable this morning. He had a biopsy of the omental mass yesterday at 13:30 hours, the result is pending. According to the report, the pathology specimen was adequate. He is comfortable at the present time and slept very well last night. He denies chest pain or shortness of breath. He has not been very active. We discussed being active, trying to get out of bed, doing exercises, etc and he understands. He does walk with one assist with a walker. OBJECTIVE: VITAL SIGNS: Stable and he is afebrile. Blood pressure is 132/77, oxygen saturation is 95% on room air, I Os; 2357 in and 525 out. Weight 110.4 kgs by standing scale that is different in built than in bed scale where he was 107.8 kgs at the time of admission. HEENT: Unremarkable, no neck vein distention or HJR. HEART: Regular rate and rhythm. LUNGS: Clear with decreased breath sounds. No wheezing or crackles are noted. There is no dullness to percussion. ABDOMEN: Soft, umbilical hernia is noted. No tenderness noted. EXTREMITIES: He has no cyanosis or clubbing, with a minimal amount of pretibial edema. LABORATORY DATA: White count is pending for this morning. Hemoglobin was 11.9 yesterday. PRP was stable with a BUN of 30 yesterday. Biopsy of the omental mass was performed and it is pending. IMPRESSION: 1. Respiratory insufficiency. 2. Chronic obstructive pulmonary disease with exacerbation. 3. 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 RECOMMENDATION: At this point, I will continue his present medications from a pulmonary standpoint. I would recommend obtaining a CT scan of the chest prior to placing a PleurX catheter. He should be continued on Spiriva and we will await results of the biopsy of the omental mass. Overall, from a pulmonary standpoint, he is stable. [facility]
[2016-10-23 07:42] LABS: MEAN CELL VOLUME 97.4 fL (80-100); MEAN CORPUSCULAR HEMOGLOBIN 30.5 pg (25-34); MEAN CORPUSCULAR HGB CONC 31.3 g/dl (32-36); MEAN PLATELET VOLUME 10.4 fL (7.4-10.4); PLATELET COUNT 164 K/uL (130-400); WHITE BLOOD COUNT 9.39 K/uL (4.8-10.8)
[2016-10-23 08:10] LABS: BUN/CREATININE RATIO 35.6 (10-20); CALCIUM 8.7 mg/dl (8.5-10.1); CREATININE 0.78 mg/dl (0.60-1.40)
[2016-10-23] MEDS: COLCHICINE 0.6 MG TAB PO SCH (08:10)
[2016-10-23] MEDS: ISOSORBIDE MONONITRATE 60 MG TABCR PO SCH (08:10)
[2016-10-23] MEDS: TIOTROPIUM BROMIDE 5 PUFF/90 MCG INH INH SCH (08:10)
[2016-10-23] MEDS: ALLOPURINOL 300 MG TAB PO SCH (08:10)
[2016-10-23] MEDS: CARVEDILOL 12.5 MG TAB PO SCH (08:10)
[2016-10-23] MEDS: FLUTICASONE/SALMETEROL 250/50 (ADVAIR) 14 PUFF/1 INHALER INH SCH ×2 (08:10→21:10)
[2016-10-23] MEDS: METOPROLOL SUCC 50MG EXT REL TAB PO SCH (08:10)
--- NOTE | 2016-10-23 09:30 | SURGERY PROGRESS NOTE ---
DATE: 10/23/2016 DATE: 10/23/2016. Mr. Cortes was seen today. He has unchanged clinically. His daughter was a bit concerned about his shortest of breath yesterday although he seemed a bit better today. His A-a gradient has not changed. He does have decreased breath sounds on the right. He underwent a needle biopsy and apparently there are adequate specimens, although we did not get a preliminary diagnosis. I agree with Dr. Zabala we are probably dealing with a metastatic adenocarcinoma. On the CT images for the biopsy he really does not have that much fluid. At this point, I am going to check another PT/INR and an AP and lateral chest x-ray and if necessary we can place a PleurX catheter tomorrow and get him set up for discharge hopefully. Apparently he has fairly widespread disease and I think his family would like to take him home.
--- NOTE | 2016-10-23 09:46 | DIAGNOSTIC IMAGING REPORT ---
TWO VIEW CHEST CLINICAL HISTORY: Pleural effusion. FINDINGS: PA and lateral chest radiographs are compared to study dated 10/21/2016 and correlated with chest CT dated 10/16/2016. The heart is enlarged and there is atherosclerotic calcification of the thoracic aorta. The pulmonary vasculature is noncongested. Emphysema and chronic interstitial thickening are similar to previous. There is a right pleural effusion with associated right basilar atelectasis. Atelectasis is also seen at the left lung base. A calcified granuloma is again note in the left upper lobe. There is no pneumothorax. The skeletal structures are osteopenic. Degenerative change is noted throughout the thoracic spine. IMPRESSION: 1. Cardiomegaly and emphysema. There is no radiographic evidence of congestive failure. 2. Unchanged appearance of a right pleural effusion with associated atelectasis as compared to 10/21/2016. Electronically signed by: Aiden Doty M.D. 10/23/2016 9:44 AM Dictated Date/Time: 10/23/2016 9:43 AM
[2016-10-23 09:51] LABS: INR 1.2 (0.9-1.1); PROTHROMBIN TIME (PATIENT) 13.3 SECONDS (9.0-12.0)
[2016-10-23] MEDS ORDERED: LORAZEPAM 0.5 MG TAB PO STA (13:48)
[2016-10-23] MEDS ORDERED: FUROSEMIDE INJ 20 MG in SYRINGE 0 ML IV ONE (14:00)
--- NOTE | 2016-10-23 15:06 | Progress Note ---
Subjective Date of Service: Oct 23, 2016. Subjective Pt evaluation today including: conversation w/ patient, conversation w/ family , physical exam, lab review, review of studies, conversation w/ automation consultant, review of inpatient medication list Pain: no pain PO Intake: adequate Voiding: no voiding problems patient was doing well this AM, sitting up in wheelchair, breathing well sitting up he worked with therapy and got short of breath, still short of breath back in bed, RR 28 reviewed CXR from this AM: no change, small right effusion, cardiomegaly, no edema patient denies cough, fever, wheezing, feels slightly better the longer he lays in bed discussed situation overall with family, daughter really feels that he needs rehab/SNF, cannot go home patient's is 80, cannot take care of him by herself Dr. Hurtado will make decision on PleurX tomorrow, effusion is small Problem List Medical Problems: (1) Malignancy Status: Acute (2) Pleural effusion, right Status: Acute Review of Systems Constitutional: + fatigue, + weakness Respiratory: + dyspnea on exertion, + shortness of breath All Other Systems: Reviewed and Negative Medications Current Inpatient Medications Medications (Trade) Dose Ordered Sig/Luciana Route Start Time Stop Time Status Last Admin Dose Admin Acetaminophen (Tylenol Tab) 650 mg Q4H PRN PO 10/21/16 12:45 11/20/16 12:44 Al Hydrox/Mg Hydrox/Simethicone (Maalox Max Susp) 15 ml Q4H PRN PO 10/21/16 12:45 11/20/16 12:44 Magnesium Hydroxide (Milk Of Magnesia Susp) 30 ml Q6H PRN PO 10/21/16 12:45 11/20/16 12:44 Polyethylene (Miralax Powder Packet) 17 gm DAILY PRN PO 10/21/16 13:15 11/20/16 13:14 Ondansetron HCl (Zofran Inj) 4 mg Q6H PRN IV 10/21/16 12:45 11/20/16 12:44 Allopurinol (Zyloprim Tab) 300 mg DAILY PO 10/22/16 09:00 11/21/16 08:59 10/23/16 08:10 300 MG Carvedilol (Coreg Tab) 12.5 mg DAILY PO 10/22/16 09:00 11/21/16 08:59 10/23/16 08:10 12.5 MG Celecoxib (CeleBREX CAP) 200 mg Q2D@0900 PO 10/22/16 09:00 11/21/16 08:59 10/22/16 08:15 200 MG Colchicine (Colchicine Tab) 0.6 mg QAM PO 10/22/16 09:00 11/21/16 08:59 10/23/16 08:10 0.6 MG Salmeterol Xinafoate/ Fluticasone (Advair Diskus 250/50 Inh) 1 puff BID INH 10/21/16 21:00 11/20/16 20:59 10/23/16 08:10 1 PUFF Furosemide (Lasix Tab) 40 mg DAILY PRN PO 10/21/16 12:45 11/20/16 12:44 Isosorbide Mononitrate (Imdur Ext Rel Tab) 60 mg QAM PO 10/22/16 09:00 11/21/16 08:59 10/23/16 08:10 60 MG Metoprolol Succinate (Toprol Xl Tab) 50 mg DAILY PO 10/22/16 09:00 11/21/16 08:59 10/23/16 08:10 50 MG Tiotropium [place] (Spiriva Handihaler Inhaler) 1 puff DAILY INH 10/22/16 09:00 11/21/16 08:59 10/23/16 08:10 1 PUFF Objective Vital Signs Date Time Temp Pulse Resp B/P Pulse Ox O2 Delivery O2 Flow Rate FiO2 10/23/16 13:27 36.7 92 28 130/82 90 Room Air 3.0 Nasal Cannula 10/23/16 09:30 20 10/23/16 08:34 92 Room Air 3.0 Nasal Cannula 10/23/16 08:00 Nasal Cannula 3.0 10/23/16 07:46 37.1 94 28 120/74 92 Room Air 3.0 Nasal Cannula 10/23/16 00:00 95 Room Air 10/22/16 23:24 36.7 103 18 132/77 91 Room Air 10/22/16 16:44 36.6 86 18 105/64 95 10/22/16 16:00 95 Nasal Cannula 3.0 Physical Exam General Appearance: WD/WN, + mild distress (respiratory) Eyes: normal inspection, EOMI, sclerae normal ENT: normal ENT inspection, hearing grossly normal, pharynx normal Neck: supple, no adenopathy, no JVD, trachea midline Respiratory/Chest: chest non-tender, + respiratory distress (mild), + decreased breath sounds (right base no breath sounds), + accessory muscle use Cardiovascular: regular rate, rhythm, no edema, no gallop, no JVD, no murmur Abdomen: normal bowel sounds, non tender, soft, no organomegaly, + distended ( chronically) Extremities: normal range of motion, non-tender, normal inspection, no pedal edema, no calf tenderness, pelvis stable Neurologic/Psychiatric: director of student affairs II-XII nml as tested, no motor/sensory deficits, alert, normal mood/affect, oriented x 3 Skin: normal color, warm/dry, no rash Lymphatic: no adenopathy Laboratory Results Last 24 Hours Test 10/23/16 07:11 White Blood Count 9.39 K/uL Red Blood Count 3.90 M/uL Hemoglobin 11.9 g/dL Hematocrit 38.0 % Mean Corpuscular Volume 97.4 fL Mean Corpuscular Hemoglobin 30.5 pg Mean Corpuscular Hemoglobin Concent 31.3 g/dl RDW Standard Deviation 53.7 fL RDW Coefficient of Variation 15.1 % Platelet Count 164 K/uL Mean Platelet Volume 10.4 fL Prothrombin Time 13.3 SECONDS Prothromb Time International Ratio 1.2 Sodium Level 141 mmol/L Potassium Level 4.0 mmol/L Chloride Level 104 mmol/L Carbon Dioxide Level 32 mmol/L Anion Gap 5.0 mmol/L Blood Urea Nitrogen 28 mg/dl Creatinine 0.78 mg/dl Est Creatinine Clear Calc Drug Dose 92.4 ml/min Estimated GFR () 98.1 Estimated GFR (Non- 84.7 BUN/Creatinine Ratio 35.6 Random Glucose 117 mg/dl Calcium Level 8.7 mg/dl Assessment and Plan 81 y/o male w PMHx of atrial fibrillation, CHF, COPD, and gout who presented for a direct admission on 10/21 with shortness of breath. Patient recently discharged on 10/18 after developing a right pleural effusion and having a thoracentesis on 10/17. 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 Pleural fluid pathology negative for malignant cells, culture negative. Shortness of breath, presumed recurrent right pleural effusion--recent thoracentesis by Dr. Marquez on 10/17 hold on thoracentesis, appreciate consult from Dr. Hurtado repeat CXR today shows right effusion, cardiomegaly, no pulmonary edema Dr. Hurtado deciding on PleurX tomorrow some increased work of breathing this afternoon, poor lung sounds bilaterally , cannot take deep breaths treated with Lasix 20mg IV x 1, Ativan 0.5mg now oxygen increased to 4L for comfort Abdominal carcinomatosis: CT guided biopsy of right upper quadrant omental node yesterday, pathology still pending Atrial fibrillation--Currently rate controlled - Continue metoprolol succinate 50 mg PO qd - Hold Warfarin, INR 1.2 after vitamin K yesterday Chronic diastolic CHF- -stable, right pleural effusion likely secondary to malignancy -Continue Imdur 60 mg PO qd, carvedilol 12.5 mg PO qd, and Lasix 40 mg qd prn weight gain COPD -Continue Advair 1 puff inh BID and Spiriva 1 puff inh qd Gout -Continue allopurinol 300 mg PO qd and colchicine 0.6 mg PO qd DVT ppx: Charles, SCD, hold warfarin CODE STATUS: DNR, son to fill out a POLST Dispo: From home, lives with , PT/OT, CM to assist with dc planning. Family interested in SNF rehab, may need to stay in SNF, his cannot care for him at home alone.
[2016-10-24 07:30] VITALS: BP 108/69; PULSE 90; TEMP 36.4; O2SAT 91
[2016-10-24 07:46] LABS: HEMATOCRIT 35.3 % (42-52); MEAN CELL VOLUME 96.2 fL (80-100); MEAN CORPUSCULAR HEMOGLOBIN 30.8 pg (25-34); MEAN PLATELET VOLUME 10.2 fL (7.4-10.4); PLATELET COUNT 156 K/uL (130-400); RED BLOOD COUNT 3.67 M/uL (4.7-6.1); WHITE BLOOD COUNT 8.51 K/uL (4.8-10.8)
[2016-10-24] MEDS: FLUTICASONE/SALMETEROL 250/50 (ADVAIR) 14 PUFF/1 INHALER INH SCH ×2 (08:07→20:22)
[2016-10-24] MEDS: ALLOPURINOL 300 MG TAB PO SCH (08:08)
[2016-10-24] MEDS: CARVEDILOL 12.5 MG TAB PO SCH (08:08)
[2016-10-24] MEDS: METOPROLOL SUCC 50MG EXT REL TAB PO SCH (08:08)
[2016-10-24] MEDS: CeleBREX 200 MG CAP PO SCH (08:08)
[2016-10-24] MEDS: TIOTROPIUM BROMIDE 5 PUFF/90 MCG INH INH SCH (08:08)
[2016-10-24] MEDS: ISOSORBIDE MONONITRATE 60 MG TABCR PO SCH (08:08)
[2016-10-24] MEDS: COLCHICINE 0.6 MG TAB PO SCH (08:08)
[2016-10-24 08:13] LABS: BUN/CREATININE RATIO 33.4 (10-20); CALCIUM 8.5 mg/dl (8.5-10.1); CREATININE 0.79 mg/dl (0.60-1.40); POTASSIUM 3.9 mmol/L (3.5-5.1)
--- NOTE | 2016-10-24 13:38 | Progress Note ---
Subjective Date of Service: Oct 24, 2016. Subjective Pt evaluation today including: conversation w/ patient, conversation w/ family , physical exam, lab review, conversation w/ continuous improvement consultant, review of inpatient medication list Pain: no pain PO Intake: adequate Voiding: no voiding problems patient feeling well, breathing better, says he though he was not going to live yesterday discussed with patient that I am going to recommend that he go to SNF for rehab because of his overall weakness family concerned, he lives with his who is 80 yo and cannot care for him if he is weak he understands spoke with Dr. Hurtado, he plans to place a PleurX in right side today Problem List Medical Problems: (1) Malignancy Status: Acute (2) Pleural effusion, right Status: Acute Review of Systems Constitutional: + fatigue, + weakness Respiratory: + dyspnea on exertion, + shortness of breath Neurologic: + balance problems, + weakness All Other Systems: Reviewed and Negative Medications Current Inpatient Medications Medications (Trade) Dose Ordered Sig/Luciana Route Start Time Stop Time Status Last Admin Dose Admin Acetaminophen (Tylenol Tab) 650 mg Q4H PRN PO 10/21/16 12:45 11/20/16 12:44 Al Hydrox/Mg Hydrox/Simethicone (Maalox Max Susp) 15 ml Q4H PRN PO 10/21/16 12:45 11/20/16 12:44 Magnesium Hydroxide (Milk Of Magnesia Susp) 30 ml Q6H PRN PO 10/21/16 12:45 11/20/16 12:44 Polyethylene (Miralax Powder Packet) 17 gm DAILY PRN PO 10/21/16 13:15 11/20/16 13:14 Ondansetron HCl (Zofran Inj) 4 mg Q6H PRN IV 10/21/16 12:45 11/20/16 12:44 Allopurinol (Zyloprim Tab) 300 mg DAILY PO 10/22/16 09:00 11/21/16 08:59 10/24/16 08:08 300 MG Carvedilol (Coreg Tab) 12.5 mg DAILY PO 10/22/16 09:00 11/21/16 08:59 10/24/16 08:08 12.5 MG Celecoxib (CeleBREX CAP) 200 mg Q2D@0900 PO 10/22/16 09:00 11/21/16 08:59 10/24/16 08:08 200 MG Colchicine (Colchicine Tab) 0.6 mg QAM PO 10/22/16 09:00 11/21/16 08:59 10/24/16 08:08 0.6 MG Salmeterol Xinafoate/ Fluticasone (Advair Diskus 250/50 Inh) 1 puff BID INH 10/21/16 21:00 11/20/16 20:59 10/24/16 08:07 1 PUFF Furosemide (Lasix Tab) 40 mg DAILY PRN PO 10/21/16 12:45 11/20/16 12:44 Isosorbide Mononitrate (Imdur Ext Rel Tab) 60 mg QAM PO 10/22/16 09:00 11/21/16 08:59 10/24/16 08:08 60 MG Metoprolol Succinate (Toprol Xl Tab) 50 mg DAILY PO 10/22/16 09:00 11/21/16 08:59 10/24/16 08:08 50 MG Tiotropium [place] (Spiriva Handihaler Inhaler) 1 puff DAILY INH 10/22/16 09:00 11/21/16 08:59 10/24/16 08:08 1 PUFF Objective Vital Signs Date Time Temp Pulse Resp B/P Pulse Ox O2 Delivery O2 Flow Rate FiO2 10/24/16 08:00 Nasal Cannula 3.0 10/24/16 07:30 36.4 90 18 108/69 91 Nasal Cannula 3.0 10/24/16 00:00 Nasal Cannula 4.0 10/23/16 23:45 37.0 93 22 130/82 97 10/23/16 16:00 93 Nasal Cannula 4.0 10/23/16 15:11 37.0 90 20 116/68 93 Nasal Cannula 4.0 Physical Exam General Appearance: WD/WN, no apparent distress Eyes: normal inspection, EOMI, sclerae normal ENT: normal ENT inspection, hearing grossly normal, pharynx normal Neck: supple, no adenopathy, no JVD, trachea midline Respiratory/Chest: chest non-tender, no respiratory distress, no accessory muscle use, + decreased breath sounds (right base) Cardiovascular: regular rate, rhythm, no edema, no gallop, no JVD, no murmur Abdomen: normal bowel sounds, non tender, soft, no organomegaly Extremities: normal range of motion, non-tender, normal inspection, no pedal edema, no calf tenderness, pelvis stable Neurologic/Psychiatric: direct customer service representative II-XII nml as tested, alert, normal mood/affect, oriented x 3, + motor weakness (generalized, needs assistance ambulating) Skin: normal color, warm/dry, no rash Laboratory Results Last 24 Hours Test 10/24/16 07:01 White Blood Count 8.51 K/uL Red Blood Count 3.67 M/uL Hemoglobin 11.3 g/dL Hematocrit 35.3 % Mean Corpuscular Volume 96.2 fL Mean Corpuscular Hemoglobin 30.8 pg Mean Corpuscular Hemoglobin Concent 32.0 g/dl RDW Standard Deviation 52.6 fL RDW Coefficient of Variation 15.0 % Platelet Count 156 K/uL Mean Platelet Volume 10.2 fL Sodium Level 141 mmol/L Potassium Level 3.9 mmol/L Chloride Level 101 mmol/L Carbon Dioxide Level 32 mmol/L Anion Gap 8.0 mmol/L Blood Urea Nitrogen 26 mg/dl Creatinine 0.79 mg/dl Est Creatinine Clear Calc Drug Dose 91.2 ml/min Estimated GFR () 97.6 Estimated GFR (Non- 84.2 BUN/Creatinine Ratio 33.4 Random Glucose 130 mg/dl Calcium Level 8.5 mg/dl Assessment and Plan 81 y/o male w PMHx of atrial fibrillation, CHF, COPD, and gout who presented for a direct admission on 10/21 with shortness of breath. Patient recently discharged on 10/18 after developing a right pleural effusion and having a thoracentesis on 10/17. 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 Pleural fluid pathology negative for malignant cells, culture negative. Shortness of breath, presumed recurrent right pleural effusion--recent thoracentesis by Dr. Marquez on 10/17 plan for PleurX catheter today on right side with Dr. Hurtado occasionally requires Ativan PO for distress and anxiety Lasix 20mg IV given yesterday, negative fluid balance, breathing better Abdominal carcinomatosis: CT guided biopsy of right upper quadrant omental node yesterday, pathology still pending updated family and patient Atrial fibrillation--Currently rate controlled - Continue metoprolol succinate 50 mg PO qd - Hold Warfarin, INR 1.2 after vitamin K, resume after PleurX placed was on 5mg daily but came in supratherapeutic, would recommend 5mg x 2 days then perhaps 3mg daily Chronic diastolic CHF- -stable, right pleural effusion likely secondary to malignancy -Continue Imdur 60 mg PO qd, carvedilol 12.5 mg PO qd, Lasix PRN for weight gain at home COPD -Continue Advair 1 puff inh BID and Spiriva 1 puff inh qd Gout -Continue allopurinol 300 mg PO qd and colchicine 0.6 mg PO qd DVT ppx: Charles, SCD, hold warfarin CODE STATUS: DNR Dispo: From home, lives with , PT/OT, CM to assist with dc planning. Family interested in SNF rehab, may need to stay in SNF, his cannot care for him at home alone. I discussed plan for rehab/SNF with patient and he is agreeable
[2016-10-24] MEDS ORDERED: LIDOCAINE HCL 1% 20 ML VIAL ONE (14:13)
[2016-10-24] MEDS ORDERED: NURSING VERBAL MED ORDER ONE (15:00)
[2016-10-24 15:17] LABS: PLEURAL FLUID APPEARANCE HAZY; PLEURAL FLUID COLOR RED; PLEURAL FLUID MONONUC RELAT 42.2 %; PLEURAL FLUID POLYNUC 57.8 %; PLEURAL FLUID SOURCE RIGHT LUNG; PLEURAL FLUID WBC (A) 90 /uL
--- NOTE | 2016-10-24 15:21 | SURGERY PROGRESS NOTE ---
DATE: 10/24/2016 Mr. Cortes was seen today on 10/24/2016. Mr. Cortes states that his breathing is short and he had a couple of episodes last night which were concerning to him. We had a long talk about this. At this point, I went ahead and repeated his chest x-ray and I think he has more fluid on the lateral film. I used an ultrasound to evaluate his right chest and indeed he has fluid with a window which should make it relatively straightforward. We will get him ready for his Pleurx catheter. I discussed this with the patient's family.
--- NOTE | 2016-10-24 15:25 | DIAGNOSTIC IMAGING REPORT ---
CHEST ONE VIEW PORTABLE CLINICAL HISTORY: s/p pleurx COMPARISON STUDY: Chest CT October 16, 2016 and chest radiograph October 23, 2016. FINDINGS: A right basilar pleural catheter is in place. No pneumothorax is identified. A right pleural effusion is noted. This may have slightly decreased in size since prior exam. However, there is a residual pleural effusion. There is a small left pleural effusion. Bibasilar opacities persist. Cardiomegaly is unchanged. There is no evidence of pulmonary edema. IMPRESSION: Right basilar pleural catheter in place. No pneumothorax. Persistent right pleural effusion which may have decreased in size since prior exam. Electronically signed by: Keron Sinclair M.D. 10/24/2016 3:24 PM Dictated Date/Time: 10/24/2016 3:22 PM
[2016-10-24 15:44] LABS: PLEURAL FLUID TOTAL PROTEIN 3.4 g/dl
[2016-10-24 15:51] VITALS: BP 98/66; PULSE 62; TEMP 36.4; O2SAT 92
--- NOTE | 2016-10-24 15:51 | OPERATIVE REPORT ---
DATE OF OPERATION: 10/24/2016 PROCEDURE: Insertion of right PleurX catheter. SURGEON: Dr. Hurtado. ANESTHESIA: Local. SPECIFICS OF PROCEDURE: The patient was palced in the in left lateral decubitus position, I used the ultrasound and was able to find a window very close to his initial thoracocentesis site. I marked this with indelible ink and then prepped and draped in the usual sterile fashion. Appropriate timeout had been called. A 25 gauge needle with 1% Xylocaine was used to anesthetize the skin and subcutaneous tissues. A large bore needle was used to go above the rib and anesthetize the muscle and the pleura. Free flowing very light colored bloody fluid was noted. A guidewire was inserted and needle removed. About 12 cm anterior to this another skin wheal was raised with 25 gauge needle and 1 cm incision was made in the area of both skin wheals. A long needle was used to anesthetize subcutaneous tissues between the two and then a tunneler was attached to the PleurX catheter and dragged from the anterior to posterior incision. The tunnel was removed. An introducer sheath with an inner cannula was slid over the guidewire and inner cannula and guidewire removed and then PleurX catheter was placed through the Peel-Away sheath which was removed. A single 3-0 silk suture used to close the posterior incision and a single 3-0 silk suture was used to anchor the catheter to the patient's skin anteriorly. 1200 mL of a very light bloody fluid was obtained. He had some reexpansion pain and we stopped. Antimicrobial dressings were placed after we capped this. He tolerated it well. I attest to the content of the Intraoperative Record and any orders documented therein. Any exceptions are noted below. TAYED
[2016-10-24 16:00] VITALS: O2SAT 92
[2016-10-24] MEDS: ACETAMINOPHEN 325 MG TAB PO PRN ×2 (16:24→21:38)
[2016-10-24 23:49] VITALS: BP 100/63; PULSE 86; TEMP 36.9; O2SAT 95
[2016-10-25] MEDS: ACETAMINOPHEN 325 MG TAB PO PRN (01:38)
[2016-10-25] MEDS: MoRPHine SULFATE 2 MG/ML CARP IV PRN ×2 (04:09→08:23)
[2016-10-25 07:45] VITALS: BP 110/52; PULSE 80; TEMP 36.6; O2SAT 91
--- NOTE | 2016-10-25 07:51 | Procedure Note ---
Procedure Note Date of Service Oct 25, 2016. Procedure Note Procedure: Thoracentesis Consent: obtained via the patient and placed into the chart Pre-procedural Dx: rt sided pleural effusion Post-Procedural Dx: Rt sided pleural effusion Analgesia: 10cc 2% liquid lidocaine US Guided: Performed by myself at the bedside with a large right sided pleural effusion noted and marked Procedure: Patient was placed in the up right position then draped and prepped in a sterile fashion. A modified Seldinger technique was used for catheter placement. Approximately 1500cc was removed of serosanguineous fluid. Labs were sent Post US and CXR evaluation where WNL Complications: none Date of procedure: 10/17/2016
[2016-10-25 08:01] VITALS: O2SAT 91
[2016-10-25] MEDS: COLCHICINE 0.6 MG TAB PO SCH (08:22)
[2016-10-25] MEDS: TIOTROPIUM BROMIDE 5 PUFF/90 MCG INH INH SCH (08:22)
[2016-10-25] MEDS: CARVEDILOL 12.5 MG TAB PO SCH (08:22)
[2016-10-25] MEDS: FLUTICASONE/SALMETEROL 250/50 (ADVAIR) 14 PUFF/1 INHALER INH SCH ×2 (08:22→20:32)
[2016-10-25] MEDS: METOPROLOL SUCC 50MG EXT REL TAB PO SCH (08:23)
[2016-10-25] MEDS: ISOSORBIDE MONONITRATE 60 MG TABCR PO SCH (08:23)
[2016-10-25] MEDS: ALLOPURINOL 300 MG TAB PO SCH (08:23)
[2016-10-25] MEDS ORDERED: MoRPHine SULFATE 2 MG/ML CARP IV ONE (09:30)
[2016-10-25] MEDS ORDERED: NURSING VERBAL MED ORDER ONE ×3 (09:30→17:00)
--- NOTE | 2016-10-25 10:04 | DIAGNOSTIC IMAGING REPORT ---
TWO VIEW CHEST CLINICAL HISTORY: Pleurx catheter. FINDINGS: PA and lateral chest radiographs are compared to study dated 10/24/2016 and correlated with chest CT dated 10/16/2016. The AP view is significantly degraded by patient rotation. The heart is enlarged and there is atherosclerotic calcification of the thoracic aorta. The pulmonary vasculature is noncongested. Emphysema and chronic interstitial thickening are similar to previous. There are bilateral pleural effusions with associated bibasilar consolidation. A pleural catheter is again seen at the right lung base. No pneumothorax is identified. A calcified granuloma is again note in the left upper lobe. The skeletal structures are osteopenic. Degenerative change is noted throughout the thoracic spine. IMPRESSION: 1. Cardiomegaly and emphysema. There is no radiographic evidence of congestive failure. 2. Pleural effusions with bibasilar consolidation. This is similar appearance to yesterday. 3. A pleural catheter is again seen at the right lung base. No pneumothorax is identified post procedure. Electronically signed by: Aiden Doty M.D. 10/25/2016 10:02 AM Dictated Date/Time: 10/25/2016 10:00 AM
--- NOTE | 2016-10-25 10:36 | Hospitalist Progress Note ---
Hospitalist Progress Note Date of Service Oct 25, 2016. Subjective Pt evaluation today including: conversation w/ patient, physical exam, chart review, lab review, review of studies, review of inpatient medication list Voiding: no voiding problems, no incontinence SOB has improved slightly since PleurX catheter placement on 10/24. +increased pain at procedure site. He is eating and drinking OK. Patient denies any fever, chills, sweats, lightheadedness, dizziness, vision changes, CP, palpitations, edema, wheezing, cough, abdominal pain, nausea, vomiting, diarrhea, urinary symptoms, melena, numbness/tingling, weakness, muscle/joint pain, anxiety/ depression, active bleeding, or new skin discoloration/changes. Medications Current Inpatient Medications Medications (Trade) Dose Ordered Sig/Luciana Route Start Time Stop Time Status Last Admin Dose Admin Acetaminophen (Tylenol Tab) 650 mg Q4H PRN PO 10/21/16 12:45 11/20/16 12:44 10/25/16 01:38 650 MG Al Hydrox/Mg Hydrox/Simethicone (Maalox Max Susp) 15 ml Q4H PRN PO 10/21/16 12:45 11/20/16 12:44 Magnesium Hydroxide (Milk Of Magnesia Susp) 30 ml Q6H PRN PO 10/21/16 12:45 11/20/16 12:44 Polyethylene (Miralax Powder Packet) 17 gm DAILY PRN PO 10/21/16 13:15 11/20/16 13:14 Ondansetron HCl (Zofran Inj) 4 mg Q6H PRN IV 10/21/16 12:45 11/20/16 12:44 Allopurinol (Zyloprim Tab) 300 mg DAILY PO 10/22/16 09:00 11/21/16 08:59 10/25/16 08:23 300 MG Carvedilol (Coreg Tab) 12.5 mg DAILY PO 10/22/16 09:00 11/21/16 08:59 10/25/16 08:22 12.5 MG Celecoxib (CeleBREX CAP) 200 mg Q2D@0900 PO 10/22/16 09:00 11/21/16 08:59 10/24/16 08:08 200 MG Colchicine (Colchicine Tab) 0.6 mg QAM PO 10/22/16 09:00 11/21/16 08:59 10/25/16 08:22 0.6 MG Salmeterol Xinafoate/ Fluticasone (Advair Diskus 250/50 Inh) 1 puff BID INH 10/21/16 21:00 11/20/16 20:59 10/25/16 08:22 1 PUFF Furosemide (Lasix Tab) 40 mg DAILY PRN PO 10/21/16 12:45 11/20/16 12:44 Isosorbide Mononitrate (Imdur Ext Rel Tab) 60 mg QAM PO 10/22/16 09:00 11/21/16 08:59 10/25/16 08:23 60 MG Metoprolol Succinate (Toprol Xl Tab) 50 mg DAILY PO 10/22/16 09:00 11/21/16 08:59 10/25/16 08:23 50 MG Tiotropium [place] (Spiriva Handihaler Inhaler) 1 puff DAILY INH 10/22/16 09:00 11/21/16 08:59 10/25/16 08:22 1 PUFF Morphine Sulfate (MoRPHine SULFATE INJ) 2 mg Q4 PRN IV 10/25/16 03:30 11/08/16 03:29 10/25/16 08:23 2 MG Objective Vital Signs Date Time Temp Pulse Resp B/P Pulse Ox O2 Delivery O2 Flow Rate FiO2 10/25/16 08:01 91 Humidified Oxygen 3.5 10/25/16 08:00 Nasal Cannula 3.0 10/25/16 07:45 36.6 80 16 110/52 91 Humidified Oxygen 3.5 10/25/16 00:00 Nasal Cannula 3.0 10/24/16 23:49 36.9 86 20 100/63 95 Nasal Cannula 4.0 10/24/16 16:00 92 Nasal Cannula 3.0 10/24/16 15:51 36.4 62 16 98/66 92 Physical Exam General Appearance: no apparent distress, + obese Eyes: normal inspection, PERRL ENT: hearing grossly normal Neck: supple Respiratory/Chest: lungs clear, no respiratory distress, no accessory muscle use, + decreased breath sounds (right lung base ), + pertinent finding (PleurX catheter; procedure site in clean dressing, no obvious discharge, erythema, or warmth ) Cardiovascular: + irregularly irregular (rate controlled ) Abdomen: normal bowel sounds, non tender, + distended, + hernia (umbilical hernia noted; easily reducible, no tenderness ) Extremities: no calf tenderness, + swelling (+2 pitting edema of bilateral lower extremities ) Neurologic/Psychiatric: alert, normal mood/affect, oriented x 3 Skin: normal color, warm/dry, no rash Laboratory Results Last 24 Hours Test 10/24/16 14:36 Pleural Fluid pH 7.39 Assessment and Plan 81 y/o male with a history of atrial fibrillation, CHF, COPD, and gout who presented for a direct admission on 10/21 with shortness of breath. Patient recently discharged on 10/18 after developing a right pleural effusion and having a thoracentesis on 10/17. 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 Pleural fluid pathology negative for malignant cells, culture negative. Patient presented to Dr. Diane's office just prior to arrival with worsening SOB, FERRARI, and fatigue , suspected to be secondary to a recurrent right pleural effusion. Right pleural effusion--recent thoracentesis by Dr. Marquez on 10/17: - Admit to med/surg - Consult thoracic surgery, appreciate recommendations -- PleurX catheter on 10/24, pathology pending, pleural fluid gram stain/ bacterial culture- NGTD, pleural fluid acid fast stain/mycobacterial culture pending - Consult Dr. Marquez, appreciate recommendations - O2 by protocol, wean as tolerated - IV Morphine + Tylenol for pain control - IV Lasix 20 mg x1 dose on 10/23 - Repeated CXR on 10/25- 1. Cardiomegaly and emphysema. There is no radiographic evidence of congestive failure. 2. Pleural effusions with bibasilar consolidation. This is similar appearance to yesterday. 3. A pleural catheter is again seen at the right lung base. No pneumothorax is identified post procedure. Abdominal carcinomatosis: CT guided biopsy of right upper quadrant omental node on 10/22, pathology pending Atrial fibrillation: - Continue Metoprolol succinate 50 mg PO qd - Warfarin held and Vitamin K dosing for PleurX catheter procedure on 10/24 - Resume once OK from surgery standpoint Chronic diastolic CHF: Continue Imdur 60 mg PO qd, Carvedilol 12.5 mg PO qd, and Lasix 40 mg qd PRN weight gain COPD: Continue Advair 1 puff INH BID and Spiriva 1 puff INH qd Gout: Continue Allopurinol 300 mg PO qd, Colchicine 0.6 mg PO qd DVT prophylaxis: PANCHO breen and SCDs Code Status: LEVEL V, DNR Dispo: PT/OT recommend SNP placement-- > Referrals placed, requesting [facility]; case management following
[2016-10-25] MEDS ORDERED: KETOROLAC TROMETHAMINE 15 MG/ML VIAL IV. ONE (10:45)
--- NOTE | 2016-10-25 14:41 | PULMONARY PROGRESS NOTE ---
DATE: 10/25/2016 TIME: 2:15 p.m. SUBJECTIVE: The patient is feeling much better today. He had some pain last evening at the site of the Pleurx catheter but that seems improved. He is breathing much easier and generally is comfortable. He has no specific complaints at present. OBJECTIVE: GENERAL: The patient appeared comfortable. He was awake, alert and oriented. VITAL SIGNS: Temperature is 36.6. CHEST: Showed an increased AP diameter. HEART: Rate was 80 beats per minute. The rhythm was irregular. Blood pressure 110/52. LUNGS: The breath sounds at the right base are mildly decreased. No active wheezes, rales or rhonchi were heard. Oxygen saturation is 91% on 3.5 liters. ABDOMEN: Appears distended. He has a large umbilical hernia. He denies tenderness to palpation. EXTREMITIES: Reveal +2 edema in both lower extremities. Pleural fluid from the removal yesterday showed an exudate with the pleural LDH at 271. IMPRESSIONS: 1. Respiratory insufficiency -- improved. 2. Chronic obstructive pulmonary disease with exacerbation. 3. Right pleural effusion -- possibly malignant. 4. Omental mass -- biopsy pending. COMMENTS AND RECOMMENDATIONS: The pleural fluid cytology is pending, as is the abdominal biopsy. The patient overall seems reasonably stable. From a pulmonary perspective, he remains on tiotropium and Advair. I have no specific suggestions at present other than waiting for the above-mentioned lab results.
[2016-10-25 15:14] VITALS: BP 93/56; PULSE 95; TEMP 36.8; O2SAT 93
[2016-10-25 16:00] VITALS: O2SAT 95
--- NOTE | 2016-10-25 18:15 | SURGERY PROGRESS NOTE ---
DATE: 10/25/2016 SUBJECTIVE: Mr. Cortes was seen today. He is having quite a bit of pain, which I was a bit surprised at actually. He is still on 3 liters of O2. He states his breathing is a bit better, but he is having quite a bit of pain and he is a stoic man. I ordered one dose of Toradol IV and this has seemed to help him. I explained to the patient and his family that he should get over this. If he does not, we will adjust his pain medications or perhaps even remove it, although I think it has helped him. He was drained for about 250 mL today and his x-ray does look better.
[2016-10-25] MEDS: KETOROLAC TROMETHAMINE 15 MG/ML VIAL IV. PRN (19:12)
[2016-10-26] VITALS (7 sets, daily range): BP systolic 92–130; BP diastolic 57–78; PULSE 82–98; TEMP 36.6–37.3; O2SAT 93–95
[2016-10-26] MEDS: FLUTICASONE/SALMETEROL 250/50 (ADVAIR) 14 PUFF/1 INHALER INH SCH ×2 (07:41→20:02)
[2016-10-26] MEDS: TIOTROPIUM BROMIDE 5 PUFF/90 MCG INH INH SCH (07:41)
[2016-10-26] MEDS: CARVEDILOL 12.5 MG TAB PO SCH (07:42)
[2016-10-26] MEDS: METOPROLOL SUCC 50MG EXT REL TAB PO SCH (07:42)
[2016-10-26] MEDS: ISOSORBIDE MONONITRATE 60 MG TABCR PO SCH (07:42)
[2016-10-26] MEDS: COLCHICINE 0.6 MG TAB PO SCH (07:42)
[2016-10-26] MEDS: CeleBREX 200 MG CAP PO SCH (07:43)
[2016-10-26] MEDS: ALLOPURINOL 300 MG TAB PO SCH (07:43)
[2016-10-26 08:10] LABS: HEMATOCRIT 35.5 % (42-52); MEAN CELL VOLUME 95.7 fL (80-100); MEAN CORPUSCULAR HEMOGLOBIN 30.5 pg (25-34); MEAN CORPUSCULAR HGB CONC 31.8 g/dl (32-36); MEAN PLATELET VOLUME 9.6 fL (7.4-10.4); PLATELET COUNT 190 K/uL (130-400); RED BLOOD COUNT 3.71 M/uL (4.7-6.1); WHITE BLOOD COUNT 8.41 K/uL (4.8-10.8)
[2016-10-26 08:18] LABS: INR 1.2 (0.9-1.1); PROTHROMBIN TIME (PATIENT) 12.4 SECONDS (9.0-12.0)
[2016-10-26] MEDS: KETOROLAC TROMETHAMINE 15 MG/ML VIAL IV. PRN ×2 (08:22→20:03)
[2016-10-26 08:48] LABS: BUN/CREATININE RATIO 41.9 (10-20); CREATININE 0.94 mg/dl (0.60-1.40); MAGNESIUM 2.4 mg/dl (1.8-2.4); POTASSIUM 4.9 mmol/L (3.5-5.1)
--- NOTE | 2016-10-26 11:54 | SURGERY PROGRESS NOTE ---
DATE: 10/26/2016 DATE: 10/26/2016. Mr. Cortes had a biopsy done on Tuesday10/22/2016. This was an adenocarcinoma. I discussed this with Dr. Cooper Vásquez and it is unclear as to the origin. The CEA is positive, but does not appear to be have the classic appearance of colon carcinoma. Further studies are pending. He was drained for 250 cc's again today. This fluid is cytologically negative again. We will manage the pleurx catheter upon discharge. MTDD
--- NOTE | 2016-10-26 16:35 | Palliative Care Progress Note ---
Palliative Care Progress Note Date of Service Oct 26, 2016. Subjective Called patient's daughter, Bessie. She stated that her mother will be in the hospital tomorrow by 9a.m. I will meet with the patient and tomorrow. Objective Vital Signs Date Time Temp Pulse Resp B/P Pulse Ox O2 Delivery O2 Flow Rate FiO2 10/26/16 15:04 37.0 83 18 107/65 95 Nasal Cannula 3.0 10/26/16 11:56 82 92/57 10/26/16 08:00 93 Nasal Cannula 3.0 10/26/16 07:30 37.3 98 20 126/78 93 Nasal Cannula 3.0 10/26/16 00:24 37.0 97 18 122/77 94 Nasal Cannula 4.0 10/26/16 00:00 Nasal Cannula 3.0 Laboratory Results Last 24 Hours Test 10/26/16 07:59 White Blood Count 8.41 K/uL Red Blood Count 3.71 M/uL Hemoglobin 11.3 g/dL Hematocrit 35.5 % Mean Corpuscular Volume 95.7 fL Mean Corpuscular Hemoglobin 30.5 pg Mean Corpuscular Hemoglobin Concent 31.8 g/dl RDW Standard Deviation 52.4 fL RDW Coefficient of Variation 14.9 % Platelet Count 190 K/uL Mean Platelet Volume 9.6 fL Prothrombin Time 12.4 SECONDS Prothromb Time International Ratio 1.2 Sodium Level 138 mmol/L Potassium Level 4.9 mmol/L Chloride Level 101 mmol/L Carbon Dioxide Level 32 mmol/L Anion Gap 5.0 mmol/L Blood Urea Nitrogen 39 mg/dl Creatinine 0.94 mg/dl Est Creatinine Clear Calc Drug Dose 77.1 ml/min Estimated GFR () 87.8 Estimated GFR (Non- 75.7 BUN/Creatinine Ratio 41.9 Random Glucose 123 mg/dl Calcium Level 9.0 mg/dl Magnesium Level 2.4 mg/dl
--- NOTE | 2016-10-26 16:44 | PULMONARY PROGRESS NOTE ---
DATE: 10/26/2016 TIME: 04:25 p.m. SUBJECTIVE: The patient has no respiratory complaints today. He states his breathing is comfortable. Approximately 250 mL of pleural fluid was drained again today. He has been having loose stools according to nursing staff. There has been quite a few of them today. OBJECTIVE: GENERAL: The patient was sleeping when I entered the room. His was present and I did speak with her. The patient ultimately awakened readily. He denies complaints. VITAL SIGNS: Temperature is 37 degrees. Heart rate was 83 per minute. Blood pressure is 107/65. Saturation was 95% on 3 liters. NECK: No lymph nodes were palpable. LUNGS: Wyman were generally clear with mild decreased breath sounds. EXTREMITIES: Revealed +1 to +2 edema bilaterally. It appears to be a bit less than yesterday. ABDOMEN: Soft. He does have the prominent hernia as had been seen previously. The patient's pleural fluid cytology was negative. The biopsy of the mass in the abdomen, which was thought to represent omentum, shows metastatic adenocarcinoma. LABORATORY DATA: White count today is 8.41. Hemoglobin 11.3. Platelets 190,000. Electrolytes show sodium 138, potassium 4.9, chloride 101, and bicarbonate 32. BUN was 39 with a creatinine of 0.94. IMPRESSIONS: 1. Respiratory insufficiency -- improved. 2. Chronic obstructive pulmonary disease with exacerbation. 3. Right pleural effusion - exudative. 4. Omental mass -- metastatic adenocarcinoma. RECOMMENDATIONS: The patient's respiratory status is stable. He is on tiotropium and Advair that he takes at home. I will see him again only if specifically requested.
--- NOTE | 2016-10-26 17:07 | Progress Note ---
Subjective Date of Service: Oct 26, 2016. Subjective Pt evaluation today including: conversation w/ patient, conversation w/ family , physical exam, chart review, lab review, review of studies, conversation w/ valuation consultant, review of inpatient medication list Voiding: no voiding problems Doing well, sitting up in a chair, decreased appetite, pain well controlled, right pleural catheter has 250ml drainage fluid was removed this morning Problem List Medical Problems: (1) Malignancy Status: Acute (2) Pleural effusion, right Status: Acute Review of Systems Constitutional: + fatigue, + weakness, No chills, No fever, No problem reported , No sweats, No weight loss Eyes: No diplopia, No discharge, No eye pain, No redness, No worsening of vision ENT: No dental problems, No hearing loss, No nasal symptoms, No sore throat, No tinnitus, No trouble swallowing, No unusual epistaxis Respiratory: No cough, No dyspnea at rest, No dyspnea on exertion, No hemoptysis, No shortness of breath, No sputum, No wheezing Cardiac: + edema (2+ edema in lower extremity is not new), No PND, No chest pain, No claudication, No orthopnea, No palpitations Abdomen: No constipation, No diarrhea, No nausea, No pain, No vomiting Musculoskeletal: No calf pain, No joint pain, No muscle pain, No swelling Male : No dysuria, No hematuria, No incontinence, No nocturia more than once/ night, No slowing stream, No urinary frequency Neurologic: No balance problems, No memory loss, No numbness/tingling, No paralysis, No vertigo, No weakness Psychiatric: No anhedonism, No anxiety, No depression symptoms, No insomnia, No substance abuse Heme: No abnormal bleeding/bruising, No clotting problems, No night sweats, No swollen lymph nodes Endo: No excessive thirst, No excessive urination, No fatigue Skin: No bleeding, No color change, No itch, No new/changing skin lesions, No rash Objective Vital Signs Date Time Temp Pulse Resp B/P Pulse Ox O2 Delivery O2 Flow Rate FiO2 10/26/16 15:04 37.0 83 18 107/65 95 Nasal Cannula 3.0 10/26/16 11:56 82 92/57 10/26/16 08:00 93 Nasal Cannula 3.0 10/26/16 07:30 37.3 98 20 126/78 93 Nasal Cannula 3.0 10/26/16 00:24 37.0 97 18 122/77 94 Nasal Cannula 4.0 10/26/16 00:00 Nasal Cannula 3.0 Physical Exam General Appearance: WD/WN, no apparent distress, + obese Eyes: normal inspection, PERRL, EOMI, sclerae normal ENT: normal ENT inspection, hearing grossly normal, pharynx normal Neck: supple, no adenopathy, thyroid normal, no JVD, no carotid bruits, trachea midline Respiratory/Chest: normal breath sounds, no respiratory distress, no accessory muscle use, + decreased breath sounds Cardiovascular: regular rate, rhythm, no edema, no gallop, no JVD, no murmur Abdomen: non tender, soft, no organomegaly, no pulsatile mass, + pertinent finding (umbilical hernia is not new) Extremities: normal range of motion, non-tender, normal inspection, no pedal edema, no calf tenderness, normal capillary refill, pelvis stable Neurologic/Psychiatric: applied mathematician II-XII nml as tested, no motor/sensory deficits, alert, normal mood/affect, oriented x 3 Skin: normal color, warm/dry, no rash Lymphatic: no adenopathy Laboratory Results Last 24 Hours Test 10/26/16 07:59 White Blood Count 8.41 K/uL Red Blood Count 3.71 M/uL Hemoglobin 11.3 g/dL Hematocrit 35.5 % Mean Corpuscular Volume 95.7 fL Mean Corpuscular Hemoglobin 30.5 pg Mean Corpuscular Hemoglobin Concent 31.8 g/dl RDW Standard Deviation 52.4 fL RDW Coefficient of Variation 14.9 % Platelet Count 190 K/uL Mean Platelet Volume 9.6 fL Prothrombin Time 12.4 SECONDS Prothromb Time International Ratio 1.2 Sodium Level 138 mmol/L Potassium Level 4.9 mmol/L Chloride Level 101 mmol/L Carbon Dioxide Level 32 mmol/L Anion Gap 5.0 mmol/L Blood Urea Nitrogen 39 mg/dl Creatinine 0.94 mg/dl Est Creatinine Clear Calc Drug Dose 77.1 ml/min Estimated GFR () 87.8 Estimated GFR (Non- 75.7 BUN/Creatinine Ratio 41.9 Random Glucose 123 mg/dl Calcium Level 9.0 mg/dl Magnesium Level 2.4 mg/dl Assessment and Plan 81 y/o male with a history of atrial fibrillation, CHF, COPD, and gout who presented for a direct admission on 10/21/2016 with shortness of breath. Patient recently discharged on 10/18 after developing a right pleural effusion and having a thoracentesis on 10/17. 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 Pleural fluid pathology negative for malignant cells, culture negative. Patient presented to Dr. Diane's office just prior to arrival with worsening SOB, FERRARI, and fatigue, suspected to be secondary to a recurrent right pleural effusion. Chronic diastolic CHF: COPD: stable Gout: stable, Right pleural effusion--recent thoracentesis by Dr. Marquez on 10/17: Abdominal carcinomatosis: CT guided biopsy of right upper quadrant omental node on 10/22, pathology report shows carcinoma primary source unknown Atrial fibrillation: f/u thoracic surgery, appreciate recommendations PleurX catheter on 10/24, pathology pending, pleural fluid gram stain/bacterial culture- NGTD, pleural fluid acid fast stain/mycobacterial culture pending Consult Dr. Marquez, appreciate recommendations Repeated CXR on 10/25 today: 1. Cardiomegaly and emphysema. There is no radiographic evidence of congestive failure. 2. Pleural effusions with bibasilar consolidation. This is similar appearance to yesterday. 3. A pleural catheter is again seen at the right lung base. No pneumothorax is identified post procedure. cont O2 by protocol, wean as tolerated cont IV Morphine + Tylenol for pain control Continue Metoprolol succinate 50 mg PO qd Warfarin held and Vitamin K dosing for PleurX catheter procedure on 10/24 Resume once OK from surgery standpoint , this need to be further discussed with patient's and patient's family, possible not to restart because seems the goal of care is palliative Daughter request palliative care consultation, and want to talk to oncology as well Dr. Beauchamp consultation requested cont Imdur 60 mg PO qd, Carvedilol 12.5 mg PO qd, and Lasix 40 mg changed to daily discuss with pt , , son, daughter, in bedside, daughter is RN in Dr. Smith' s office, updated condition, and care, plan, answered questions fam agreed palliative care consult DVT prophylaxis: PANCHO breen and SCDs Code Status: LEVEL V, DNR Dispo: PT/OT recommend SNP placement, [facility] Continued [facility] stay due to: multiple IV medications needed Discharge planning: group home facility
[2016-10-27] MEDS: TIOTROPIUM BROMIDE 5 PUFF/90 MCG INH INH SCH (07:54)
[2016-10-27] MEDS: FLUTICASONE/SALMETEROL 250/50 (ADVAIR) 14 PUFF/1 INHALER INH SCH (07:55)
[2016-10-27 07:58] LABS: HEMATOCRIT 35.6 % (42-52); MEAN CELL VOLUME 95.7 fL (80-100); MEAN CORPUSCULAR HEMOGLOBIN 30.6 pg (25-34); MEAN PLATELET VOLUME 9.8 fL (7.4-10.4); PLATELET COUNT 199 K/uL (130-400); RED BLOOD COUNT 3.72 M/uL (4.7-6.1); WHITE BLOOD COUNT 8.63 K/uL (4.8-10.8)
[2016-10-27 08:13] LABS: INR 1.2 (0.9-1.1)
[2016-10-27 08:17] VITALS: BP 120/80; PULSE 82; TEMP 36.2; O2SAT 95
[2016-10-27] MEDS: CARVEDILOL 12.5 MG TAB PO SCH (08:27)
[2016-10-27] MEDS: COLCHICINE 0.6 MG TAB PO SCH (08:27)
[2016-10-27] MEDS: ISOSORBIDE MONONITRATE 60 MG TABCR PO SCH (08:27)
[2016-10-27] MEDS: METOPROLOL SUCC 50MG EXT REL TAB PO SCH (08:28)
[2016-10-27 08:38] VITALS: O2SAT 95
[2016-10-27 08:38] LABS: BUN/CREATININE RATIO 40.5 (10-20); CALCIUM 8.7 mg/dl (8.5-10.1); CREATININE 0.98 mg/dl (0.60-1.40); POTASSIUM 3.9 mmol/L (3.5-5.1)
[2016-10-27] MEDS ORDERED: FUROSEMIDE 40 MG TAB PO SCH (09:00)
--- NOTE | 2016-10-27 09:18 | ONCOLOGY CONSULTATION ---
DATE OF CONSULTATION: 10/26/2016 REASON FOR CONSULTATION: Metastatic carcinoma, primary unknown. HISTORY OF PRESENT ILLNESS: Raad is a pleasant 81-year-old gentleman who was a direct admission to [facility] on 10/21/2016 with subacute onset shortness of breath. Apparently, the patient had been previously admitted on 10/16/2016 and found to have a right pleural effusion. There were concerns at that time that he might be suffering from metastatic disease. The patient underwent thoracentesis on 10/17/2016, yielding considerable pleural fluid which did not reveal malignant cells. Pleural fluid culture was also negative. He was subsequently discharged on 10/18/2016. He felt well for a few days and then the night prior to admission developed shortness of breath and dyspnea on exertion. He was readmitted and seen by Dr. Brian Hurtado. On 10/24/2016, right PleurX catheter was placed. CT scan of the abdomen and pelvis had been performed on prior admission dated 10/16/2016, confirming the presence of 5 x 7 cm conglomerate mass involving the left lower quadrant, possibly encompassing components of the sigmoid colon or small-bowel. Left pelvic adenopathy with moderate mesenteric jean change and omental carcinomatosis is also revealed. Therefore, CT guided biopsy was pursued confirming the presence of adenocarcinoma, primary unknown. Today at bedside, his breathing appears to be better. He reports no loss of appetite or weight. He denies any pain issues at this time and overall his performance status appears reasonable to consider salvage chemotherapy. However, we will await formal confirmation from pathology regarding Mr. Cortes's malignancy. PAST MEDICAL HISTORY: Significant for atrial fibrillation, congestive heart failure, COPD and gout. MEDICATIONS: Prior to admission include allopurinol 300 mg p.o. daily, carvedilol 12.5 mg p.o. daily, Celebrex 200 mg p.o. every other day, colchicine 0.6 mg p.o. q.a.m., Lasix 40 mg p.o. daily, Imdur 60 mg p.o. q.a.m., metoprolol 50 mg p.o. daily, Spiriva HandiHaler 1 capsule inhalation p.o. daily, warfarin sodium 5 mg p.o. daily. ALLERGIES: No known drug allergies. REVIEW OF SYSTEMS: Positive for fatigue. Negative for anorexia or weight loss. No fevers, chills or sweats. HEENT: Negative for headaches, lightheadedness or dizziness. No visual or hearing deficits. No sinus symptoms, sore throat or dysphagia. LYMPH: No history of lymphoproliferative disorder. CARDIAC: No history of coronary artery disease. No current angina or palpitations. PULMONARY: Positive for recurrent right pleural effusions, transudative in nature. Positive for dyspnea on exertion. Positive for shortness of breath. No reported hemoptysis. GASTROINTESTINAL: Negative for abdominal pain, nausea or vomiting, diarrhea or constipation, hematochezia or melenic stools. GENITOURINARY: No hematuria, dysuria, urinary incontinence. No history of prostate cancer. MUSCULOSKELETAL: No arthralgias or myalgias. No muscle weakness. NEUROLOGIC: Negative for seizure, stroke, or migraine headache. HEMATOLOGIC: Positive for mild normocytic normochromic anemia. PHYSICAL EXAMINATION: GENERAL: Very pleasant 81-year-old gentleman seated at bedside, awake, alert and appropriate. VITAL SIGNS: Temperature 36.6, pulse 84, respirations 20, blood pressure 130/75. SKIN: Without rash or lesion. No petechiae or ecchymosis. HEENT: Head: Atraumatic, normocephalic. Eyes: PERRLA, EOMI. Sclerae nonicteric. No conjunctival injection. Nares are patent without rhinorrhea or discharge. Throat clear. Tongue midline. Mucous membranes are moist. NECK: Supple without JVD or thyromegaly. LYMPH: No supraclavicular, axillary or inguinal palpable nodes. HEART: Regular rate and rhythm. No clicks, rubs, murmurs or gallops. LUNGS: Diminished breath sounds, predominantly in the right posterior base. ABDOMEN: Soft, nontender, nondistended. Prominent umbilical hernia noted. No palpable hepatosplenomegaly. No rigidity or guarding. EXTREMITIES: Trace peripheral edema bilateral lower extremities. Pulses and strength are otherwise equal. NEUROLOGIC: He is awake, alert and oriented x3. Cranial nerves II-XII are intact. No gross motor or sensory deficits are noted. LABORATORY DATA: WBC count 8630, hemoglobin 11.4, platelet count 199,000. Sodium 138, potassium 4.9, chloride 101, carbon dioxide 32, creatinine 0.94, BUN 39. IMPRESSION: 1. Metastatic carcinoma, primary unknown. 2. Recurrent right pleural effusion. 3. Status post PleurX catheter insertion. PLAN: I had the pleasure of meeting Mr. Cortes at bedside today at Dr. Hurtado's request. His medical record and past radiographic studies were all reviewed and discussed in detail with Mr. Cortes. He recently underwent omental biopsy confirming the presence of a metastatic carcinoma, primary unknown. Further staining is pending. Therefore, formal recommendations regarding chemotherapy cannot be made at this time. Overall, Mr. Cortes's performance status is reasonable to consider salvage therapy. I made it very clear to him that this is certainly not a curative circumstance and the goal of any salvage therapy would be to prolong life while maintaining quality. Again, I cannot get into specifics until diagnosis is confirmed. Mr. Cortes would like me to discuss his circumstance with family members. I have suggested that once he is medically stable, to schedule him for an expedient outpatient followup and discuss diagnosis, prognosis and therapeutics at that time. I agree with current medical management otherwise. Thank you again for allowing me to participate in his care. I will periodically follow with him during his hospital stay.
[2016-10-27] MEDS: ALLOPURINOL 300 MG TAB PO SCH (09:19)
--- NOTE | 2016-10-27 10:45 | Discharge Instructions ---
Discharge Instructions Date of Service Oct 27, 2016. Admission Reason for Admission: R Plural Infusion Discharge Discharge Diagnosis / Problem: Right Pleural effusion; metastatic adenocarcinoma Discharge Goals Goal(s): Decrease discomfort, Improve function, Learn about illness, Diagnostic testing, Therapeutic intervention, Prevent Disease Progression Activity Recommendations Activity Level: Assistance Required Therapies: Physical Therapy, Occupational Therapy . Additional Information Patient informed of condition: Yes Advance Directives: No DNR: Yes Level of Care: Acute Rehab Communicable Disease: No Prognosis: Stable Oxygen at (LPM): 3L Diane Catheter: No Instructions / Follow-Up Instructions / Follow-Up New medication: 1. Roxicodone 5 mg by mouth every 6 hours as needed for pain Resume all regular home medications as prescribed You have inquired about palliative care. At this time, you would like to follow- up with Dr. Beauchamp first. BLADIMIR De La Cruz has seen you in the hospital; she has provided you with a list of hospice agencies. If you have any additional questions, please do not hesitant to contact her at anytime (contact card given to you). Please follow-up with your [facility] provider within 24-48 hrs A referral has been placed to follow-up with Dr. Beauchamp- if you do not hear of an appointment in 1-2 days, please call the office at [phone] Please follow-up with Dr. Hurtado as instructed by him. Office # [phone] Please follow-up/keep all of your subspecialty appointments Current Hospital Diet Patient's current hospital diet: Low Sodium Diet (2gm Na) Discharge Diet Recommended Diet: Low Sodium Diet (2gm Na) Procedures Procedures Performed: 1. Chest x-ray 2. CT-guided biopsy of abdominal mass 3. PleurX catheter placement Pending Studies Studies pending at discharge: no Physician Orders On Transfer Additional Orders: Daily INR until therapeutic range of 2-3 Daily PleurX catheter drainage Laboratory Results Results Past 24 Hours Test 10/27/16 07:49 Range/Units White Blood Count 8.63 4.8-10.8 K/uL Red Blood Count 3.72 4.7-6.1 M/uL Hemoglobin 11.4 14.0-18.0 g/dL Hematocrit 35.6 42-52 % Mean Corpuscular Volume 95.7 80-100 fL Mean Corpuscular Hemoglobin 30.6 25-34 pg Mean Corpuscular Hemoglobin Concent 32.0 32-36 g/dl RDW Standard Deviation 51.8 36.4-46.3 fL RDW Coefficient of Variation 14.9 11.5-14.5 % Platelet Count 199 130-400 K/uL Mean Platelet Volume 9.8 7.4-10.4 fL Prothrombin Time 13.0 9.0-12.0 SECONDS Prothromb Time International Ratio 1.2 0.9-1.1 Sodium Level 138 136-145 mmol/L Potassium Level 3.9 3.5-5.1 mmol/L Chloride Level 100 98-107 mmol/L Carbon Dioxide Level 31 21-32 mmol/L Anion Gap 7.0 3-11 mmol/L Blood Urea Nitrogen 40 7-18 mg/dl Creatinine 0.98 0.60-1.40 mg/dl Est Creatinine Clear Calc Drug Dose 74.0 ml/min Estimated GFR () 83.5 Estimated GFR (Non- 72.0 BUN/Creatinine Ratio 40.5 10-20 Random Glucose 110 70-99 mg/dl Calcium Level 8.7 8.5-10.1 mg/dl Hemoglobin A1c Test 09/16/16 14:48 Range/Units Estimated Average Glucose 131 mg/dl Hemoglobin A1c 6.2 H 4.5-5.6 % Medical Emergencies . Who to Call and When: Medical Emergencies: If at any time you feel your situation is an emergency, please call 911 immediately. . Non-Emergent Contact Non-Emergency issues call your: Primary Care Provider . . "Provider Documentation" section prepared by Radha Garcia. Core Measure Problem Core Measures: None
--- NOTE | 2016-10-27 11:15 | Discharge Summary ---
Discharge Summary Date of Service Oct 27, 2016. Discharge Summary Admission Date: Oct 21, 2016 at 11:25 Discharge Date: Oct 27, 2016 Discharge Disposition: Rehab Principal Diagnosis: Right lung pleural effusion; metastatic carcinoma Problems/Secondary Diagnoses: 1. Abdominal carcinomatosis 2. Atrial fibrillation 3. Chronic diastolic CHF 4. COPD 5. Gout Immunizations: Have You Had Influenza Vaccine: N/A History of Tetanus Vaccine?: Yes Tetanus Immunization Date: Jan 05, 2011 History of Pneumococcal: Yes Pneumococcal Date: Jan 06, 2008 History of Hepatitis B Vaccine: No Procedures: CHEST 2 VIEWS ROUTINE HISTORY: dyspnea, suspected right pleural effusion COMPARISON: Chest 10/17/2016. FINDINGS: Small right and trace left pleural effusion are again noted. Bibasilar linear densities suggesting subsegmental atelectasis. The heart remains mildly enlarged. No pneumothorax. Left upper lobe calcified granulomas again noted. Right medial lung base opacity, unchanged. IMPRESSION: 1. Small right and trace left pleural effusion. This is similar to the prior study. 2. Bibasilar densities are nonspecific but may be due to atelectasis from the pleural fluid. Electronically signed by: Brad Keane M.D. 10/21/2016 1:48 PM Dictated Date/Time: 10/21/2016 1:46 PM The status of this report is Signed. Draft = Not yet reviewed or approved by Radiologist. Signed = Reviewed and approved by Radiologist. CT-GUIDED FINE-NEEDLE ASPIRATION OF AN ABDOMINAL MASS CLINICAL HISTORY: bx. of abdominal mass PROCEDURE: Written informed consent was obtained. The patient was positioned supine on the CT table. Preliminary imaging was performed to determine a safe needle entry site. The right upper quadrant was prepped and draped in the usual sterile fashion. 1% lidocaine was used for local anesthesia. A total of 2 passes were made through the omental soft tissue abnormality with a 22-gauge x 9 cm Juan needle. The specimens were given to the on-site pathologist who determined adequate tissue for diagnosis. There were no immediate complications. The patient tolerated the procedure well. IMPRESSION: CT-guided fine-needle aspiration of a right upper quadrant omentum mass. No immediate complications. Electronically signed by: Brad Keane M.D. 10/22/2016 3:18 PM Dictated Date/Time: 10/22/2016 3:16 PM The status of this report is Signed. Draft = Not yet reviewed or approved by Radiologist. Signed = Reviewed and approved by Radiologist. Patient Name: LOLY SELF Unit Number: [id number] Dictated: 10/22/161515 Transcribed: 10/22/161515 [facility] Printed Date/Time: [~ rep prt dt]/[~ rep prt tm] [~ rep ct labl] - [~ rep ct ivnm] [facility] [place] [address] Dictated: 10/22/161515 Transcribed: 10/22/161515 [place] Printed Date/Time: [~ rep prt dt]/[~ rep prt tm] [~ rep ct labl] - [~ rep ct ivnm] CT-GUIDED FINE-NEEDLE ASPIRATION OF AN ABDOMINAL MASS CLINICAL HISTORY: bx. of abdominal mass PROCEDURE: Written informed consent was obtained. The patient was positioned supine on the CT table. Preliminary imaging was performed to determine a safe needle entry site. The right upper quadrant was prepped and draped in the usual sterile fashion. 1% lidocaine was used for local anesthesia. A total of 2 passes were made through the omental soft tissue abnormality with a 22-gauge x 9 cm Juan needle. The specimens were given to the on-site pathologist who determined adequate tissue for diagnosis. There were no immediate complications. The patient tolerated the procedure well. IMPRESSION: CT-guided fine-needle aspiration of a right upper quadrant omentum mass. No immediate complications. Electronically signed by: Brad Keane M.D. 10/22/2016 3:18 PM Dictated Date/Time: 10/22/2016 3:16 PM The status of this report is Signed. Draft = Not yet reviewed or approved by Radiologist. Signed = Reviewed and approved by Radiologist. TWO VIEW CHEST CLINICAL HISTORY: Pleural effusion. FINDINGS: PA and lateral chest radiographs are compared to study dated 10/21/2016 and correlated with chest CT dated 10/16/2016. The heart is enlarged and there is atherosclerotic calcification of the thoracic aorta. The pulmonary vasculature is noncongested. Emphysema and chronic interstitial thickening are similar to previous. There is a right pleural effusion with associated right basilar atelectasis. Atelectasis is also seen at the left lung base. A calcified granuloma is again note in the left upper lobe. There is no pneumothorax. The skeletal structures are osteopenic. Degenerative change is noted throughout the thoracic spine. IMPRESSION: 1. Cardiomegaly and emphysema. There is no radiographic evidence of congestive failure. 2. Unchanged appearance of a right pleural effusion with associated atelectasis as compared to 10/21/2016. Electronically signed by: Aiden Doty M.D. 10/23/2016 9:44 AM Dictated Date/Time: 10/23/2016 9:43 AM The status of this report is Signed. Draft = Not yet reviewed or approved by Radiologist. Signed = Reviewed and approved by Radiologist CHEST ONE VIEW PORTABLE CLINICAL HISTORY: s/p pleurx COMPARISON STUDY: Chest CT October 16, 2016 and chest radiograph October 23, 2016. FINDINGS: A right basilar pleural catheter is in place. No pneumothorax is identified. A right pleural effusion is noted. This may have slightly decreased in size since prior exam. However, there is a residual pleural effusion. There is a small left pleural effusion. Bibasilar opacities persist. Cardiomegaly is unchanged. There is no evidence of pulmonary edema. IMPRESSION: Right basilar pleural catheter in place. No pneumothorax. Persistent right pleural effusion which may have decreased in size since prior exam. Electronically signed by: Keron Sinclair M.D. 10/24/2016 3:24 PM Dictated Date/Time: 10/24/2016 3:22 PM The status of this report is Signed. Draft = Not yet reviewed or approved by Radiologist. Signed = Reviewed and approved by Radiologist. Patient Name: LOLY SELF Unit Number: [id number] Dictated: 10/25/16 1000 Transcribed: 10/25/16 1000 [facility] Printed Date/Time: [~ rep prt dt]/[~ rep prt tm] [~ rep ct labl] - [~ rep ct ivnm] [facility] [place] [address] Dictated: 10/25/16 1000 Transcribed: 10/25/16 1000 EV Printed Date/Time: [~ rep prt dt]/[~ rep prt tm] [~ rep ct labl] - [~ rep ct ivnm] TWO VIEW CHEST CLINICAL HISTORY: Pleurx catheter. FINDINGS: PA and lateral chest radiographs are compared to study dated 10/24/2016 and correlated with chest CT dated 10/16/2016. The AP view is significantly degraded by patient rotation. The heart is enlarged and there is atherosclerotic calcification of the thoracic aorta. The pulmonary vasculature is noncongested. Emphysema and chronic interstitial thickening are similar to previous. There are bilateral pleural effusions with associated bibasilar consolidation. A pleural catheter is again seen at the right lung base. No pneumothorax is identified. A calcified granuloma is again note in the left upper lobe. The skeletal structures are osteopenic. Degenerative change is noted throughout the thoracic spine. IMPRESSION: 1. Cardiomegaly and emphysema. There is no radiographic evidence of congestive failure. 2. Pleural effusions with bibasilar consolidation. This is similar appearance to yesterday. 3. A pleural catheter is again seen at the right lung base. No pneumothorax is identified post procedure. Electronically signed by: Aiden Doty M.D. 10/25/2016 10:02 AM Dictated Date/Time: 10/25/2016 10:00 AM The status of this report is Signed. Draft = Not yet reviewed or approved by Radiologist. Signed = Reviewed and approved by Radiologist. DICTATED BY: Brian Hurtado MD DATE OF OPERATION: 10/24/2016 PROCEDURE: Insertion of right PleurX catheter. SURGEON: Dr. Hurtado. ANESTHESIA: Local. SPECIFICS OF PROCEDURE: The patient was palced in the in left lateral decubitus position, I used the ultrasound and was able to find a window very close to his initial thoracocentesis site. I marked this with indelible ink and then prepped and draped in the usual sterile fashion. Appropriate timeout had been called. A 25 gauge needle with 1% Xylocaine was used to anesthetize the skin and subcutaneous tissues. A large bore needle was used to go above the rib and anesthetize the muscle and the pleura. Free flowing very light colored bloody fluid was noted. A guidewire was inserted and needle removed. About 12 cm anterior to this another skin wheal was raised with 25 gauge needle and 1 cm incision was made in the area of both skin wheals. A long needle was used to anesthetize subcutaneous tissues between the two and then a tunneler was attached to the PleurX catheter and dragged from the anterior to posterior incision. The tunnel was removed. An introducer sheath with an inner cannula was slid over the guidewire and inner cannula and guidewire removed and then PleurX catheter was placed through the Peel-Away sheath which was removed. A single 3-0 silk suture used to close the posterior incision and a single 3-0 silk suture was used to anchor the catheter to the patient's skin anteriorly. 1200 mL of a very light bloody fluid was obtained. He had some reexpansion pain and we stopped. Antimicrobial dressings were placed after we capped this. He tolerated it well. I attest to the content of the Intraoperative Record and any orders documented therein. Any exceptions are noted below. Dictated: 10/24/16 1501 Transcribed: 10/24/16 1551 <Electronically signed by Brian Hurtado MD> Signed: 10/25/16 1128 ES Brian Hurtado MD The status of this report is Signed. Draft = Not yet reviewed or approved by Medical Physician. Signed = Reviewed and approved by Medical Physician. Consultations: Thoracic surgery- Dr. Hurtado, Wm Prince PA-C Pulmonary- Dr. Marquez, Dr. Fry, Dr. Zabala Hematology/Oncology- Dr. Beauchamp Palliative Care- BLADIMIR De La Cruz Medication Reconciliation Continued Medications: Acetaminophen (Tylenol) 500 Mg Tab 2 TAB PO Q6 PRN for Pain for 2 Days, #20 TAB 3 Refills Allopurinol (Zyloprim *) 300 Mg Tab 300 MG PO DAILY, 0 Refills Carvedilol (Coreg) 12.5 Mg Tab 12.5 MG PO DAILY, #60 Celecoxib (Celebrex *) 200 Mg Cap 200 MG PO Q2D, 0 Refills Colchicine (Colchicine *) 0.6 Mg Tab 0.6 MG PO QAM, 0 Refills Fluticasone Prop/Salmeterol (Advair Diskus 250/50 Mcg *) Aerp 1 PUFF INH BID, 0 Refills Furosemide (Lasix) 40 Mg Tab 40 MG PO UD, TAB BASE WEIGHT OF 222.IF GAINS TAKE MED Isosorbide Mononitrate Ext Rel (Imdur Ext Rel) 60 Mg Ertab 60 MG PO QAM, 0 Refills Metoprolol Succ (Toprol Xl) (Toprol-Xl) 50 Mg Tabcr 50 MG PO DAILY, #30 0 Refills Tiotropium [place] (Spiriva Handihaler) 18 Mcg/ Aerp 1 CAP INH DAILY, 0 Refills Warfarin Sodium (Coumadin) 5 Mg Tab 5 MG PO DAILY@16, #30 Referrals At Discharge Follow up Referrals: Family Practice Referral - Within 1 Week with Raheem Smith M.D. Oncology/Hematology Referral - Within 2 Weeks with Dickson Beauhcamp D.O. Discharge Exam Review of Systems: Constitutional: No chills, No fatigue, No fever, No sweats, No weakness Respiratory: + problem reported (mild discomfort at PleurX catheter site ), No hemoptysis, No shortness of breath Cardiovascular: No chest pain, No edema, No palpitations Abdomen: No constipation, No diarrhea, No nausea, No pain, No vomiting Musculoskeletal: No calf pain, No joint pain, No muscle pain, No swelling Genitourinary - Male: No dysuria, No hematuria Neurologic: No numbness/tingling, No weakness Psychiatric: No anxiety, No depression symptoms Hematologic / Lymphatic: No abnormal bleeding/bruising Integumentary: No itch, No new/changing skin lesions, No rash Physical Exam: General Appearance: no apparent distress, + obese Eyes: normal inspection, PERRL ENT: hearing grossly normal Neck: supple Respiratory/Chest: no respiratory distress, no accessory muscle use, + decreased breath sounds (right lung) Cardiovascular: + irregularly irregular (rate controlled ) Abdomen / GI: normal bowel sounds, soft, + distended, + hernia (umbilical hernia- reducible, nontender ) Extremities: no calf tenderness, + swelling (+1 pitting edema and firmness of bilateral lower extremities ) Neurologic/Psychiatric: alert, normal mood/affect, oriented x 3 Skin: normal color, warm/dry, no rash Hospital Course 81 y/o male with a history of atrial fibrillation, CHF, COPD, and gout who presented for a direct admission on 10/21 with shortness of breath. Patient recently discharged on 10/18 after developing a right pleural effusion and having a thoracentesis on 10/17. 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 Pleural fluid pathology negative for malignant cells, culture negative. Patient presented to Dr. Diane's office just prior to arrival with worsening SOB, FERRARI, and fatigue , suspected to be secondary to a recurrent right pleural effusion. Right pleural effusion--recent thoracentesis by Dr. Marquez on 10/17: - Admit to med/surg - Consult thoracic surgery, appreciate recommendations -- PleurX catheter on 10/24, pathology- blood, scattered benign mesothelial cells, single 3D aggregate of epithelial cells, pleural fluid gram stain/ bacterial culture- NGTD, pleural fluid acid fast stain/mycobacterial NGTD -- To manage catheter upon discharge - Consult Dr. Marquez, appreciate recommendations - O2 by protocol, wean as tolerated - IV Morphine + Tylenol for pain control--> Roxicodone 5 mg PO q6 hrs PRN for pain at discharge (recommendation by palliative care) - IV Lasix 20 mg x1 dose on 10/23 - Repeated CXR on 10/25- 1. Cardiomegaly and emphysema. There is no radiographic evidence of congestive failure. 2. Pleural effusions with bibasilar consolidation. This is similar appearance to yesterday. 3. A pleural catheter is again seen at the right lung base. No pneumothorax is identified post procedure. Abdominal carcinomatosis: CT guided biopsy of right upper quadrant omental node on 10/22, pathology- metastatic adenocarcinoma - Hem/onc consult, appreciate recommendations -- Follow-up outpatient once medically stable to discuss/evaluate options Palliative care consult, appreciate recommendations -- At this time, patient wishes to follow-up w/ Dr. Beauchamp (hem/onc) first. Pallative care has provided patient with hospice agencies and contact card if patient has any additional questions. Atrial fibrillation: - Continue Metoprolol succinate 50 mg PO qd - Warfarin held and Vitamin K dosing for PleurX catheter procedure on 10/24 - Resume Warfarin to achieve INR therapeutic goal of 2-3 Chronic diastolic CHF: Continue Imdur 60 mg PO qd, Carvedilol 12.5 mg PO qd, and Lasix 40 mg qd PRN weight gain COPD: Continue Advair 1 puff INH BID and Spiriva 1 puff INH qd Gout: Continue Allopurinol 300 mg PO qd, Colchicine 0.6 mg PO qd DVT prophylaxis: PANCHO breen and KERIs Code Status: LEVEL V, DNR Dispo: Discharge to [facility] Total Time Spent: Greater than 30 minutes This includes examination of the patient, discharge planning, medication reconciliation, and communication with other providers. Discharge Instructions Please refer to the electronic Patient Visit Report (Discharge Instructions) for additional information. Follow-Up Please follow-up with your PCP within 5-7 days Please follow-up with Dr. Hurtado as instructed by him Please follow-up with Dr. Beauchamp in 1-2 weeks Please follow-up/keep all of your subspecialty appointments Additional Copies To Raheem Smith M.D.
--- NOTE | 2016-10-27 11:44 | SURGERY PROGRESS NOTE ---
DATE: 10/27/2016 DATE: 10/27/2016. I had a long talk with the patient and his family about his diagnosis. He has an adenocarcinoma, still not clear where this primary is arising from. His breathing is definitely improved since we inserted this pleural catheter. If he goes to an assisted living area or to a prison we will have the tube drained on a daily basis. At only 250 mL a day we would probably switch it to every other day. At this point, however we would like to see him drained once a day. I think his breath sounds are better in his right base.
--- NOTE | 2016-10-27 11:44 | Palliative Care Consultation ---
Consultation Date of Consultation: Oct 27, 2016. Requesting Physician: Dr. Burch Attending Physician: Radha Garcia PA-C, Dr. Burch Reason for Consultation: Goals of care History of Present Illness This 81 year old male patient presented to the ED six days ago with complaints of shortness of breath. Most of history obtained from record, some from patient and family. He was most recently admitted to the hospital from 10/16-10/18 when he was found to have right pleural effusion. At that time he had scand of the chest and abdomen which were concerning for carcinoma with metastases-- unknown if primary lung or abdominal. Underwent thoracentesis on 10/17 and was feeling much better. The pleural fluid was non-malignant, patient discharged 10/18 to home. He was feeling well until 10/21 when he became more short of breath, dyspneic on exertion, and couldn't lie down to sleep. He went to see Dr. Diane who suspected that patient had a recurrent pleural effusion and suggested the patient come back to hospital. In ED, CXR showed right pleural effusion and bibasilar atelectasis. CT guided biopsy performed on 10/22 of the RUQ omentum mass which did show adenocarcinoma of unknown primary origin. Pleur- X catheter placed in right side on 10/24- immediately drained 1200ml light bloody fluid. It has been drained every day and patient is feeling pretty well. Today the patient was seen by Dr. Beauchamp-- waiting for further results and patient is to follow up to discuss potential salvage therapy. Palliative care consulted to talk about goals of care. I met with the patient, his Karina, and his son. Patient is awake, alert and oriented. He is c/o pain in right side as his Pleur-x catheter had just been drained. His pain has been controlled with his PRN IV Toradol. He is no longer short of breath at rest, does get FERRARI but is able to recover. We discussed his diagnosis and goals of care. Patient states his only goal is for comfort and good quality of life. He is going to follow up with oncology after discharge to discuss potential options-- but he only wants chemotherapy if it is not going to make him incredibly ill because he doesn't want to be in the hospital. At this time, the plan is to go to [facility], eventually transition to hospice either at home if possible or in a facility. I explained and discussed hospice with the patient and family-- they will coordinate once patient is at [facility]. Past Medical/Surgical History Medical History: CHF Afib COPD Gout Social History Smoking Status: Former Smoker History of Alcohol Use: No Drug Use: none Marital Status: Housing Status: lives with significant other Occupation Status: retired Review of Systems Constitutional: + weakness, No chills, No fever Respiratory: + dyspnea on exertion, No dyspnea at rest, No hemoptysis Cardiac: No chest pain Abdomen: No nausea, No pain, No vomiting Musculoskeletal: + joint pain (bilatral knees) Male : No problem reported Allergies Coded Allergies: No Known Allergies (Verified , 10/16/16) Medications Current Inpatient Medications Medications (Trade) Dose Ordered Sig/Luciana Route Start Time Stop Time Status Last Admin Dose Admin Acetaminophen (Tylenol Tab) 650 mg Q4H PRN PO 10/21/16 12:45 11/20/16 12:44 10/25/16 01:38 650 MG Al Hydrox/Mg Hydrox/Simethicone (Maalox Max Susp) 15 ml Q4H PRN PO 10/21/16 12:45 11/20/16 12:44 Magnesium Hydroxide (Milk Of Magnesia Susp) 30 ml Q6H PRN PO 10/21/16 12:45 11/20/16 12:44 Polyethylene (Miralax Powder Packet) 17 gm DAILY PRN PO 10/21/16 13:15 11/20/16 13:14 Ondansetron HCl (Zofran Inj) 4 mg Q6H PRN IV 10/21/16 12:45 11/20/16 12:44 Allopurinol (Zyloprim Tab) 300 mg DAILY PO 10/22/16 09:00 11/21/16 08:59 10/27/16 09:19 300 MG Carvedilol (Coreg Tab) 12.5 mg DAILY PO 10/22/16 09:00 11/21/16 08:59 10/27/16 08:27 12.5 MG Celecoxib (CeleBREX CAP) 200 mg Q2D@0900 PO 10/22/16 09:00 11/21/16 08:59 10/26/16 07:43 200 MG Colchicine (Colchicine Tab) 0.6 mg QAM PO 10/22/16 09:00 11/21/16 08:59 10/27/16 08:27 0.6 MG Salmeterol Xinafoate/ Fluticasone (Advair Diskus 250/50 Inh) 1 puff BID INH 10/21/16 21:00 11/20/16 20:59 10/27/16 07:55 1 PUFF Isosorbide Mononitrate (Imdur Ext Rel Tab) 60 mg QAM PO 10/22/16 09:00 11/21/16 08:59 10/27/16 08:27 60 MG Metoprolol Succinate (Toprol Xl Tab) 50 mg DAILY PO 10/22/16 09:00 11/21/16 08:59 10/27/16 08:28 50 MG Tiotropium [place] (Spiriva Handihaler Inhaler) 1 puff DAILY INH 10/22/16 09:00 11/21/16 08:59 10/27/16 07:54 1 PUFF Morphine Sulfate (MoRPHine SULFATE INJ) 2 mg Q4 PRN IV 10/25/16 03:30 11/08/16 03:29 10/25/16 08:23 2 MG Ketorolac Tromethamine (Toradol Inj) 15 mg Q8H PRN IV. 10/25/16 17:00 10/30/16 16:59 10/26/16 20:03 15 MG Furosemide (Lasix Tab) 40 mg QAM PO 10/27/16 09:00 11/26/16 08:59 10/27/16 07:54 40 MG Physical Exam Date Time Temp Pulse Resp B/P Pulse Ox O2 Delivery O2 Flow Rate FiO2 10/27/16 08:38 95 Nasal Cannula 3.5 10/27/16 08:17 36.2 82 23 120/80 95 Nasal Cannula 3.5 10/27/16 00:00 Nasal Cannula 3.0 10/26/16 23:11 36.6 84 20 130/75 93 Nasal Cannula 3.0 10/26/16 16:00 93 Nasal Cannula 3.0 10/26/16 15:04 37.0 83 18 107/65 95 Nasal Cannula 3.0 10/26/16 11:56 82 92/57 General Appearance: no apparent distress, + obese ENT: hearing grossly normal Neck: no JVD Respiratory: no respiratory distress, no accessory muscle use, + decreased breath sounds Cardiovascular: + irregularly irregular, + normal peripheral pulses Abdomen: normal bowel sounds, non tender, soft Neurologic/Psychiatric: alert, normal mood/affect, oriented x 3 Laboratory Results Last 24 Hours Test 10/27/16 07:49 White Blood Count 8.63 K/uL Red Blood Count 3.72 M/uL Hemoglobin 11.4 g/dL Hematocrit 35.6 % Mean Corpuscular Volume 95.7 fL Mean Corpuscular Hemoglobin 30.6 pg Mean Corpuscular Hemoglobin Concent 32.0 g/dl RDW Standard Deviation 51.8 fL RDW Coefficient of Variation 14.9 % Platelet Count 199 K/uL Mean Platelet Volume 9.8 fL Prothrombin Time 13.0 SECONDS Prothromb Time International Ratio 1.2 Sodium Level 138 mmol/L Potassium Level 3.9 mmol/L Chloride Level 100 mmol/L Carbon Dioxide Level 31 mmol/L Anion Gap 7.0 mmol/L Blood Urea Nitrogen 40 mg/dl Creatinine 0.98 mg/dl Est Creatinine Clear Calc Drug Dose 74.0 ml/min Estimated GFR () 83.5 Estimated GFR (Non- 72.0 BUN/Creatinine Ratio 40.5 Random Glucose 110 mg/dl Calcium Level 8.7 mg/dl Assessment & Plan Palliative Performance Scale: 50 % Problem list: Weakness Shortness of breath/FERRARI Adenocarcinoma- primary unknown lung vs. abdominal Pleural effusion, right- s/p Pleur-X catheter Goals of care (Z51.5) Palliative care plan: discussed with patient, , son, and JOSE Juárez -DNR/DNI -Goal is for comfort and to stay out of the hospital -[facility] at this time for rehab. Then either home with hospice or facility with hospice -Is going to follow up with oncology to discuss diagnosis, prognosis, and options -Continue current medications -Recommend Roxicodone 5mg Q4h PO PRN for pain at Pleur-X site Thank you kindly for this consult. Contact me with any further palliative care needs.
[2016-10-27 13:58] VITALS: BP 120/80; PULSE 82; TEMP 36.2; O2SAT 95
--- NOTE | 2016-10-28 19:33 | Procedure Note ---
Procedure Note Date of Service Oct 28, 2016. Procedure Note PROCEDURE: RIGHT-SIDED THORACENTESIS CONSENT: OBTAINED THROUGH THE PATIENT PLACED IN THE CHART PREPROCEDURE DIAGNOSIS: RIGHT-SIDED PLEURAL EFFUSION POSTPROCEDURAL DIAGNOSIS: POSSIBLE MALIGNANT RIGHT-SIDED PLEURAL EFFUSION ANALGESIA: 10 CC OF 1 % LIQUID LIDOCAINE PROCEDURE: THE PATIENT WAS IN THE UPRIGHT POSITION IN THORACIC ULTRASOUND WAS USED TO GUIDE PROPER PLACEMENT. PATIENT WAS THEN DRAPED AND PREPPED IN A STERILE FASHION. MODIFIED SELDINGER TECHNIQUE WAS USED FOR CATHETER ACCESS. APPROXIMATELY 1500 CC OF MILDLY SEROSANGUINEOUS FLUID WAS REMOVED POSTPROCEDURAL ULTRASOUND PERFORMED SHOWING NO SIGNS OF PNEUMOTHORAX POSTPROCEDURAL CHEST X-RAY PERFORMED SHOW NO SIGNS OF PNEUMOTHORAX COMPLICATIONS: NONE
== END 2016-10-27 14:46 | DRG 844 ==
LOC: C.MS2W 11:25
PROVIDERS: ADMIT Internal Medicine; ATTEND Hospitalist
PROC: 0WH933Z Insertion of Infusion Device into Right Pleural Cavity, Percutaneous Approach (ICD-10-PCS; principal; 2016-10-24)
PROC: 0W9930Z Drainage of Right Pleural Cavity with Drainage Device, Percutaneous Approach (ICD-10-PCS; 2016-10-25)
DX: C80.0 Disseminated malignant neoplasm, unspecified (principal); I50.32 Chronic diastolic (congestive) heart failure; J90 Pleural effusion, not elsewhere classified; J44.1 Chronic obstructive pulmonary disease with (acute) exacerbation; I48.91 Unspecified atrial fibrillation; K42.9 Umbilical hernia without obstruction or gangrene; Z66 Do not resuscitate; M10.9 Gout, unspecified; Z87.891 Personal history of nicotine dependence; Z82.49 Family history of ischemic heart disease and other diseases of the circulatory system; Z51.5 Encounter for palliative care; Z79.01 Long term (current) use of anticoagulants

== ENCOUNTER → 2016-10-28 | Outpatient (CLI) | payer OTHER ==
[~2016-10-28] MED LIST changes: -DIGO0.122 PO; -PRED10TA PO
[2016-10-28 09:06] LABS: INR 1.3 (0.9-1.1); PROTHROMBIN TIME (PATIENT) 13.7 SECONDS (9.0-12.0)
== END ==
LOC: C.LABCC 08:08
PROVIDERS: ATTEND Internal Medicine
DX: I48.91 Unspecified atrial fibrillation (principal)

== ENCOUNTER → 2016-11-01 | Outpatient (CLI) | payer OTHER ==
[2016-11-01 08:47] LABS: INR 1.9 (0.9-1.1); PROTHROMBIN TIME (PATIENT) 21.4 SECONDS (9.0-12.0)
== END ==
LOC: C.LABCC 08:20
PROVIDERS: ATTEND Internal Medicine
DX: I48.91 Unspecified atrial fibrillation (principal)

== ENCOUNTER → 2016-11-03 | Outpatient (CLI) | payer OTHER ==
[2016-11-03 08:27] LABS: BLOOD UREA NITROGEN 21 mg/dl (7-18); BUN/CREATININE RATIO 22.9 (10-20); CALCIUM 8.4 mg/dl (8.5-10.1); CARBON DIOXIDE 27 mmol/L (21-32); CHLORIDE 102 mmol/L (98-107); GLUCOSE 104 mg/dl (70-99); POTASSIUM 3.8 mmol/L (3.5-5.1); SODIUM 138 mmol/L (136-145)
== END ==
LOC: C.LABCC 07:46
PROVIDERS: ATTEND Internal Medicine
DX: I50.9 Heart failure, unspecified (principal)

== ENCOUNTER → 2016-11-09 | Outpatient (CLI) | payer OTHER ==
[2016-11-09 09:13] LABS: INR 4.2 (0.9-1.1); PROTHROMBIN TIME (PATIENT) 47.4 SECONDS (9.0-12.0)
== END ==
LOC: C.LABCC 08:32
PROVIDERS: ATTEND Internal Medicine
DX: I48.91 Unspecified atrial fibrillation (principal)

== ENCOUNTER → 2016-11-11 | Outpatient (CLI) | payer OTHER ==
[2016-11-11 09:57] LABS: BLOOD UREA NITROGEN 17 mg/dl (7-18); BUN/CREATININE RATIO 17.3 (10-20); CALCIUM 8.4 mg/dl (8.5-10.1); CARBON DIOXIDE 31 mmol/L (21-32); CHLORIDE 101 mmol/L (98-107); CREATININE 0.96 mg/dl (0.60-1.40); GLUCOSE 92 mg/dl (70-99); POTASSIUM 3.4 mmol/L (3.5-5.1); SODIUM 139 mmol/L (136-145)
== END ==
LOC: C.LABCC 08:06
PROVIDERS: ATTEND Internal Medicine
DX: R63.5 Abnormal weight gain (principal)

== ENCOUNTER → 2016-11-12 | Outpatient (CLI) | payer OTHER ==
[2016-11-12 09:27] LABS: INR 3.8 (0.9-1.1)
== END ==
LOC: C.LABCC 08:45
PROVIDERS: ATTEND Internal Medicine
DX: I48.91 Unspecified atrial fibrillation (principal)

== ENCOUNTER → 2016-11-15 | Outpatient (CLI) | payer OTHER ==
[2016-11-15 08:36] LABS: PROTHROMBIN TIME (PATIENT) 45.9 SECONDS (9.0-12.0)
== END ==
LOC: C.LABCC 07:50
PROVIDERS: ATTEND Internal Medicine
DX: I48.91 Unspecified atrial fibrillation (principal)

== ENCOUNTER → 2016-11-18 | Outpatient (CLI) | payer OTHER ==
[2016-11-18 10:28] LABS: PROTHROMBIN TIME (PATIENT) 60.3 SECONDS (9.0-12.0)
[2016-11-18 10:47] LABS: INR 5.3 (0.9-1.1)
== END ==
LOC: C.LABCC 09:19
PROVIDERS: ATTEND Internal Medicine
DX: I48.91 Unspecified atrial fibrillation (principal)

== ENCOUNTER → 2016-11-19 | Outpatient (CLI) | payer OTHER ==
[2016-11-19 08:58] LABS: BLOOD UREA NITROGEN 18 mg/dl (7-18); BUN/CREATININE RATIO 19.7 (10-20); CARBON DIOXIDE 27 mmol/L (21-32); CHLORIDE 101 mmol/L (98-107); GLUCOSE 95 mg/dl (70-99); POTASSIUM 3.5 mmol/L (3.5-5.1); SODIUM 138 mmol/L (136-145)
[2016-11-19 09:02] LABS: CALCIUM 8.3 mg/dl (8.5-10.1)
== END ==
LOC: C.LABCC 08:04
PROVIDERS: ATTEND Internal Medicine
DX: E87.6 Hypokalemia (principal)

== ENCOUNTER → 2016-11-22 | Outpatient (CLI) | payer OTHER ==
[2016-11-22 08:38] LABS: PROTHROMBIN TIME (PATIENT) 59.9 SECONDS (9.0-12.0)
[2016-11-22 08:58] LABS: INR 5.2 (0.9-1.1)
== END | disposition home or self-care (01) ==
LOC: C.LABCC 07:49
PROVIDERS: ATTEND Internal Medicine
DX: I48.91 Unspecified atrial fibrillation (principal)

== ENCOUNTER → 2016-11-24 | Outpatient (CLI) | payer OTHER ==
[2016-11-24 09:51] LABS: PROTHROMBIN TIME (PATIENT) 56.9 SECONDS (9.0-12.0)
== END | disposition home or self-care (01) ==
LOC: C.LABCC 07:50
PROVIDERS: ATTEND Internal Medicine
DX: I48.91 Unspecified atrial fibrillation (principal)

== ENCOUNTER → 2016-11-25 | Outpatient (CLI) | payer OTHER ==
[2016-11-25 08:46] LABS: PROTHROMBIN TIME (PATIENT) 51.7 SECONDS (9.0-12.0)
[2016-11-25 09:04] LABS: INR 4.5 (0.9-1.1)
== END ==
LOC: C.LABCC 07:52
PROVIDERS: ATTEND Internal Medicine
DX: I48.91 Unspecified atrial fibrillation (principal)